=== PATIENT | male | born 1960 | race Caucasian/White ===

== ENCOUNTER → 2017-11-11 11:59 | Outpatient (CLI) | payer BC, SELFPAY ==
[2017-11-11 12:30] VITALS: BP 104/54; PULSE 75; RESP 18; TEMP 36.3; O2SAT 97; BMI 24.1
--- NOTE | 2017-11-11 12:55 | NURSING ---
PT BECAME DIAPHORETIC WHILE EATING HIS LUNCH. STATES MY SUGAR MIGHT BE LOW. STATES HE IS DIABETIC. BLOOD GLUCOSE CHECKED- RESULT 47. PT GIVEN JUICE AND CONTINUES TO EAT LUNCH.
--- NOTE | 2017-11-11 13:20 | NURSING ---
PT C/O FEELS WORSE DESPITE EATING FULL LUNCH. STATES CAN'T EAT ANYMORE. BLOOD GLUCOSE RECHECKED 46. CALLED DR JOHNSON'S OFFICE. RECEIVED ORDER TO GIVE 1 AMP D50 STAT AND SEND PT TO ED.
[2017-11-11] MEDS: Dextrose 50%-Water 25 GM/50 ML DISP.SYRIN IV (13:30)
--- NOTE | 2017-11-11 13:41 | NURSING ---
BLOOD SUGAR 129, PT REPORTS FEELING BETTER. PREFERS NOT TO GO TO ER. WILL NOTIFY DR. JOHNSON.
[2017-11-11 15:21] LABS: Bedside Glucose 48 mg/dL (70-110)
[2017-11-11 15:21] LABS: Bedside Glucose 89 mg/dL (70-110)
[2017-11-11 15:21] LABS: Bedside Glucose 46 mg/dL (70-110)
[2017-11-11 15:21] LABS: Bedside Glucose 129 mg/dL (70-110)
[2017-11-11 15:21] LABS: Bedside Glucose 47 mg/dL (70-110)
[2017-11-11 15:21] LABS: Bedside Glucose 115 mg/dL (70-110)
== END ==
PROVIDERS: Family Provider Family Medicine; PCP Family Medicine; Visit Provider Internal Medicine Hematology & Oncology
DX: C25.9 Malignant neoplasm of pancreas, unspecified (principal); E87.6 Hypokalemia; E83.42 Hypomagnesemia
CPT/HCPCS: 96365; 96366; 82962; J7050; A4216

== ENCOUNTER 2018-03-23 13:00 | Inpatient (IN) | payer BC, SELFPAY ==
[2018-03-23] VITALS (10 sets, daily range): BP systolic 84–160; BP diastolic 50–73; PULSE 79–107; RESP 14–18; TEMP 36.3–37.1; O2SAT 95–97; BMI 24.5; BMI 25.3
--- NOTE | 2018-03-23 13:17 | CT_ITS ---
STUDY: CT ABDOMEN AND PELVIS WITH CONTRAST REASON FOR EXAM: Male, 58 years old. Severe abdominal pain. History of pancreatic cancer and chemotherapy. RADIATION DOSAGE (If Supplied By Facility): CTDIvol = ( 15.84 ) mGy, DLP = ( 1031.34 ) mGycm TECHNIQUE: Transaxial images were obtained from the dome of the diaphragm to the symphysis pubis without oral contrast. 100mL ml of Isovue 300 contrast was administered. Sagittal and coronal images were reconstructed. Individualized dose optimization techniques were used for this CT. COMPARISON: None. FINDINGS: Left basilar atelectasis and/or infiltration. Calcified granuloma in the right lower lobe. Calcified right hilar lymph nodes. Small bilateral pleural effusions. Coronary artery calcification. Small pericardial effusions. There is decreased attenuation of the liver consistent with steatosis. There is a 1.5 cm x 1.9 cm peripherally based hypodensity in the dome of the right lobe of the liver laterally. Small amount of perihepatic fluid. The patient is status post cholecystectomy. There are multiple benign calcified granulomata of the spleen. Small amount of perisplenic fluid. There is diffuse atrophy of the pancreas. Normal bilateral adrenal glands. Normal right kidney. Normal left kidney. Normal visualized stomach. Several fluid filled nondistended small bowel loops. There is evidence of a circumferential wall thickening of several small bowel loops in the right mid abdomen and right lower quadrant. Enteritis should be ruled out. There is thickening of the terminal ileum. A covered stent is seen within the proximal small bowel. This may represent displacement of a stent. Correlation with prior studies is recommended if available. Moderate amount of fecal material seen in the colon. The appendix is visualized and appears normal. There is diffuse atherosclerotic calcification of the abdominal aorta, without a demonstrated aneurysm. Normal inferior vena cava. Normal retroperitoneum. Normal urinary bladder. Mild degree of ascites. Fluid is seen within the leaves of the mesentery. Normal abdominal wall. There are degenerative changes of the visualized lumbar spine. Straightening of the normal lumbar lordosis. CT/Abdomen/Pelvis W IV Cont ONLY IMPRESSION: Ascites. Nondistended fluid-filled small bowel loops with thickened wall in the right midabdomen and right lower quadrant extending into the terminal ileum. Fluid is seen within the leaves of the mesentery. A covered stent is seen within the proximal small bowel. Clinical correlation is recommended. Impression hypodensity in the dome of the right lobe of the liver. Pericardial effusion. Small bilateral pleural effusions and left basilar atelectasis. Electronically Signed: Parag Mina MD at 14:30 EDT Tel [phone], Service support ,
--- NOTE | 2018-03-23 13:23 | ED.DCSUM_ITS ---
- ER Visit Summary Date of Service: 03/23/18 Chief Complaint: Abdominal pain History of Present Illness: The patient is a 58 M with medical history significant for pancreatic cancer presents to the emergency department with abdominal pain. Patient had pancreatic cancer was diagnosed in September 2016. He underwent Whipple procedure at the [facility] shortly thereafter. The patient ended up having a small bowel obstruction where he had to have stenting placed into small bowel. He is currently following with Dr. Blackman. He did have his chemotherapy infusion on Tuesday. Shortly thereafter, he began to have worsening abdominal pain. He had x-rays which did show significant fecal stasis and constipation. He did 2 enemas and took oral cathartics. He did have a bowel movement and then had some liquid bowel movement, but he feels like his pain is worsened despite this. He has been nauseated with some bloating. He has had no vomiting. He denies any fevers or chills. He states that his pain was just very severe. Physical Examination: Vital signs reviewed General: Well-nourished, well-developed Head: Normocephalic, atraumatic Eyes: Pupils equal and reactive, extraocular muscles intact Neck, supple, no lymphadenopathy Heart: Regular rate and rhythm Respiratory: No distress, clear bilaterally Abdomen: Soft, diffusely tender with voluntary guarding Back: Nontender Extremities: Nontender, no edema, no cords Skin: Normal color no rash Neuro: Alert and oriented, no focal or lateralizing deficits Test Results: [] Emergency Department Course and Treatment: IV was established. Patient was given IV analgesics with improvement of his pain. Screening labs are obtained. He does have a leukocytosis, but in review he did get Neulasta injection on Tuesday. Screening labs are otherwise unremarkable. Lactate was normal. Patient underwent CT of the abdomen and pelvis. This does show some edema of the small bowel wall of the distal small bowel towards the terminal ileum. There is no evidence of stent migration. I was actually able to review the images with Dr. Bhakta who also reviewed them with Dr. Mauro. I do not feel that this represents an acute surgical process. I am unsure if this is side effect of his chemotherapy or just progression of his disease. Patient was discussed with Dr. Blackman. I did cover him with IV Zosyn given his leukocytosis and edema of the bowel, but again this was more of a painful process and there was no diarrhea. I am unsure if this is actually true infection or just reactive. At this time, due to the patient is can require admission for IV antibiotics and pain control. Patient was discussed with the hospitalist. Treatment Plan: [] Disposition: Admission Impression: 1. Acute abdominal pain 2. Pancreatic cancer This note was generated with [employer] dictation software. It may contain incorrect words, spelling, and punctuation that were not noted in review of the chart prior to signing ED Disposition - Plan for ED Patient: Chief Complaint: Abd Pain Referrals: Robert Cross MD [Primary Care Provider] -
[2018-03-23 13:43] LABS: Bacteria 0 SEEN /hpf (None Seen); Mucous, Urine 0 SEEN /hpf (<or=2+); Red Blood Cells-Urine 0 SEEN /hpf (0-5)
[2018-03-23] MEDS: 0.9% Normal Saline 1,000 ML 1000 ML IV (13:43)
[2018-03-23] MEDS: Ondansetron 4 MG/2 ML Vial IV (13:43)
[2018-03-23] MEDS: HYDROmorphone 1 MG/ML Syringe IV (13:43)
[2018-03-23 13:46] LABS: Color, Urine Yellow (Yellow); Glucose, Dipstick Normal (Normal); Ketone-Dipstick Negative (Negative); Leukocyte Esterase-Dipstick 25 /ul (Negative); Nitrite-Dipstick Negative (Negative); Occult Blood-Urine Negative /ul (Negative); Protein-Dipstick 30 mg/dl (Negative); Urine Bilirubin Dipstick Negative (Negative); Urine Clarity Sl. Cloudy (Clear); Urine Urobilinogen Normal (Normal)
[2018-03-23 13:52] LABS: Differential Indicated MANUAL DIFF; Hematocrit 30.1 % (40-54); Hemoglobin 9.7 g/dl (13.0-16.5); Mean Corp Hgb Conc 32.2 g/gl (32-36); Mean Corpuscular Hgb 29.2 pg (27.0-32.0); Mean Corpuscular Volume 90.7 fL (80-94); Mean Platelet Vol. 9.3 fl (6.2-12.0); POSITIVE COUNT YES; POSITIVE DIFFERENTIAL YES; POSITIVE MORPHOLOGY YES; Platelet Count 128 K/mm3 (150-450); RBC Distribution Width CV 21.9 % (11.6-14.6); RBC Distribution Width SD 72.7 fl (35.1-43.9); Red Blood Count 3.32 M/mm3 (4.6-6.2); White Blood Count 20.1 K/mm3 (4.4-11.0)
[2018-03-23 13:52] LABS: Squamous Epithelial Cells - UA 0-5 SEEN /hpf (0-5); White Blood Cells 0-5 SEEN /hpf (0-5)
[2018-03-23 14:12] LABS: ALB/GLOB Ratio 0.5 RATIO (0.9-2.4); AST(SGOT) 28 U/L (15-37); Alanine Aminotransfer ALT/SGPT 39 U/L (16-61); Albumin, Serum 1.8 g/dL (3.2-5.0); Alkaline Phosphatase 254 U/L (45-117); Anion Gap 7 (5-15); BUN 13 mg/dL (7-18); BUN/Creat Ratio 20.9 RATIO (10-20); Calcium,Total 7.7 mg/dL (8.5-10.1); Chloride 98 mmol/L (98-107); Creatinine, Serum 0.62 mg/dL (0.70-1.30); EST Glomerular Filtration Rate 140 mL/min (>60); Est Glom Filt Rate - Afr Amer 170 mL/min (>60); Estimated Creatinine Clearance 118.46 ml/min; Globulin 3.9 g/dL (2.2-4.2); Glucose 237 mg/dL (74-106); Lipase 18 U/L (73-393); Lymphocyte 3 % (19-41); Metamyelocyte 2 % (0-1); Monocyte 2 % (0-10); Neutrophil-Band 1 % (0-5); Neutrophil-Segmented 92 % (47-70); Potassium 4.4 mmol/L (3.5-5.1); Protein, Total 5.7 g/dL (6.4-8.2); Sodium Level 131 mmol/L (136-145); Total Cells Counted 100 (MANUAL DIFF)
[2018-03-23 14:13] LABS: Anisocytosis 1+; Hypochromasia 1+; Lactic Acid 1.1 mmol/L (0.4-2.0); Platelet Estimate SLT DEC (ADEQ)
[2018-03-23 14:14] LABS: Absolute Neutrophil Count 18.7 X10^3/uL (2.0-7.7); Neutrophil # 18.71 X10^3/uL (2.7-7.7)
[2018-03-23] MEDS: 0.9% Normal Saline 1,000 ML 999 ML IV (15:22)
[2018-03-23] MEDS: fentaNYL 100 MCG/2 ML Ampul 50 MCG IV (15:22)
--- NOTE | 2018-03-23 16:33 | CT_ITS ---
STUDY: CT ABDOMEN AND PELVIS WITHOUT CONTRAST REASON FOR EXAM: Male, 58 years old. Abdominal pain and weakness. History of pancreatic cancer, currently undergoing chemotherapy. RADIATION DOSAGE (If Supplied By Facility): CTDIvol = ( 7.40 ) mGy, DLP = ( 416.14 ) mGycm TECHNIQUE: Transaxial images were obtained from the dome of the diaphragm to the symphysis pubis with oral contrast, and without intravenous contrast. Sagittal and coronal images were reconstructed. Individualized dose optimization techniques were used for this CT. COMPARISON: CT abdomen and pelvis 1405 hours. FINDINGS: Stable atelectasis in the left lung base and mild elevation of left diaphragm. Stable small dependent right pleural effusion and minimal posterior basilar right lower lobe atelectasis. There is a calcified granuloma in the lateral periphery of the right lower lobe and calcified right hilar lymph nodes. The heart size is upper normal. Small pericardial effusion again noted. There are atherosclerotic calcifications of the coronary arteries. There is mild hepatomegaly, right lobe measuring just over 20 cm in height. There is decreased attenuation of the liver consistent with steatosis. There are occasional punctate calcified granuloma in the liver. Hemangioma noted in the medial margin of the right liver on the IV contrast enhanced study is not apparent in this exam. There is non-visualization of the gallbladder, which may be secondary to either contraction or a prior cholecystectomy. Normal spleen. There is moderate atrophy of the body and tail of the pancreas. The head of the pancreas is not clearly apparent, and previous exam shows possible possible prior resection of the pancreatic head with pancreatic enteric anastomosis near the proximal duodenum. Normal bilateral adrenal glands. Exophytic cortical cyst seen at the tip of the lower pole right kidney on prior study is not as conspicuous in this exam. Normal left kidney. Contrast from prior study opacifies the nondistended pelvicalyceal systems. No hydronephrosis. The patient is status post partial gastrectomy and gastrojejunal anastomosis. A stent device extends across the anastomosis, and there is a patent lumen with moderate proximal narrowing within the stent lumen. A few mildly distended small bowel loops are again noted in the midabdomen, but no significant transition point is evident, allowing that the distal small bowel is not opacified. No overtly suspicious bowel wall thickening. Mural margins of the right colon are poorly defined, likely secondary to volume averaging with small volume ascites. There is non-visualization of the appendix. There is stable moderate atherosclerotic calcification of the abdominal aorta and iliofemoral arteries, without a demonstrated aneurysm. Normal inferior vena cava. Normal retroperitoneum. Normal urinary bladder. The prostate gland is 3.85 x 4.7 x 3.54 cm (R33 cc). There is a healed supraumbilical midline scar of the anterior abdominal wall There are multilevel degenerative changes of the visualized lower thoracic and lower lumbar spine. CT/Abdomen/Pel W ORAL Cont Only IMPRESSION: 1. Prior partial gastrectomy and gastrojejunostomy, which is bridged by a covered stent. The stent is patent, although there is moderate irregular intraluminal narrowing in the proximal aspect of the stent. 2. A few mildly distended small bowel loops again seen in the mid abdomen, but no significant transition point is apparent to suggest obstruction. No overtly suspicious bowel wall thickening, allowing that the mural margins of several loops are poorly defined secondary to volume averaging with adjacent small volume ascites. 3. Hepatomegaly with steatosis. The hemangioma in the medial right lobe seen on the IV contrast enhanced study is not apparent in this exam. 4. Nonvisualized gallbladder. 5. Apparent resection of the pancreatic head with anastomosis of the pancreatic body to the proximal duodenum. 6. Stable small right pleural effusion and pericardial effusion. There is stable subsegmental atelectasis in the left diaphragm and mild elevation of left diaphragm. 7. Stable atherosclerotic calcifications of the coronary arteries, abdominal aorta, and iliofemoral arteries. No demonstrated aneurysm. 8. Mildly enlarged prostate gland. 9. Exophytic cyst at the tip of the lower pole right kidney is not as clearly seen in this noncontrast study. No hydronephrosis. 10. Healed midline supraumbilical scar of the anterior abdominal wall. Electronically Signed: Abdi Rosado MD at 19:03 EDT , Service support ,
--- NOTE | 2018-03-23 17:53 | CON.PCM_ITS ---
- Consult Date of Consult: 03/23/18 - Reason for Consult CC: abdominal pain HPI: Samuel Smith is a 58 y/o WM with known metastatic pancreatic cancer. He underwent Whipple procedure 11/15/16 and was found to have lymph nodes positive for metastatic pancreatic cancer as well as portal vein mets, vascular and perineural invasion. He is undergoing palliative chemotherapy with Dr. Blackman. He presents with right lower quadrant abdominal pain since Tuesday (4 days prior to presentation). He states that it is a severe ache. His most comfortable position is lying on his left side with body flexed. It caused increased pain for him to stretch out and lie supine. PAST?MEDICAL?HISTORY Arrhythmia ? Cancer of skin, squamous cell left thumb Coronary artery disease ? Diabetes (HCC) ? Heart attack,2X 20+ years Hypertension ? Pancreatic adenocarcinoma (HCC) - metastatic ? Skin cancer, basal cell,nose Skin cancer, basal cell 2006,thumb Snoring ? ? PAST?SURGICAL?HISTORY BACK SURGERY HX ? 1987 L4 L5 S1 CATARACT EXTRACTION HX Bilateral 03/2017 COLONOSCOPY ? 12/17/14 EGD ? 12/17/14 LAPAROSCOPIC WHIPPLE ? 11/2016 PAST SURGICAL HISTORY OF ? 2013 CTR bilateral PRQ CARDIAC STENT W/ANGIO 1 VSL 06/2016 4 heart stents TUNNEL VAD W SUB Q PORT >=5 Left 03/16/2017 left subclavian placement of small intestine stent CURRENT?MEDICATIONS plavix norco insulin magnesium zofran prn protonix kdur crestor carafate flomax ?? ALLERGIES: Review of patient's allergies indicates no known allergies. ? PERSONAL HISTORY: SOCIAL?HISTORY Social History Marital status: Spouse name: Years of education: Number of children: ?Occupational History Occupation Employer Comment [employer] ?Social History Main Topics Smoking status: Former Smoker Packs/day: 2.00 Years: 15.00 Types: Cigarettes Quit date: 12/04/1990 Smokeless status: Never Used Alcohol use: Yes Comment: rare Drug use: No Other Topics Concern Blood Transfusions Yes Comment:Possibly with back surgery ?? FAMILY HISTORY: Heart Mother triple bypass Hypertension Father ? Hyperlipidemia Father ? Glaucoma Father ? Stroke Brother ? Cancer Paternal Grandfather Colon ?? REVIEW OF SYSTEMS: Constitutional: denies fevers/chills Neuro: Denies THOMPSON and vertigo. HEENT: No recent change in voice, vision or hearing. Resp: Denies coughing up blood. CVS: Denies exertional chest pain. GI: denies blood in stool, denies n/v : Denies dysuria or gross hematuria Endo: has diabetes Heme: No unusual bleeding or unexplained bruising. Skin : denies nonhealing wounds MS: denies joint pain Psych: Normal mood. PHYSICAL EXAMINATION: General: The patient is 58 year old male, thin, well hydrated with apparent abdominal pain, lying curled up on left side. The patient is oriented to time, place, and person. VITALS: Blood pressure 108/73, pulse 84. Ht: 5'7 Wt 71kg. HEENT: Normal cephalic, atraumatic, pupils are equally round, sclera are anicteric, mucous membranes are moist, oropharynx is clear. Neck has no masses , asymmetry or lymphadenopathy. Respiratory: Clear to auscultation and percussion. Normal respiratory excursion and pattern. Cardiac: Examination is regular rate and rhythm. Abdominal exam: Soft but with tenderness to palpation of the right lower quadrant, rebound tenderness and Rovsing's is noted, no rigidity noted Extremities: no clubbing, cyanosis or edema. No adenopathy. IMPRESSION: right lower quadrant abdominal pain abdominal ascites ? PLAN: Would recommend transfer to main [facility] oncology service however, if patient cannot be transferred - would recommend paracentesis for evaluation of ascites If patient is admitted, I will reevaluate patient tomorrow Patient will be undergoing repeat CT scan with contrast
--- NOTE | 2018-03-23 20:00 | PCM.HP.STD ---
Problem List (1) Right sided abdominal pain Status: Acute History of Present Illness Date of Admission: 03/23/18 Chief Complaint: Right-sided abdominal pain The patient is a 58 year old M who was seen in the emergency room at [facility] with chief complaint of right sided abdominal pain which started 3 days ago, patient took laxatives thinking that he was constipated, he denies any fever, chills, hematochezia, vomiting, or nausea. Patient is actively receiving chemotherapy for metastatic pancreatic cancer diagnosed in October 2015, at that time he underwent a Whipple's procedure and in May 2016, his follow-up chemotherapy was stopped briefly before being started again in July 2016 when it was noted that his cancer had reoccurred. Patient also had a small intestinal stent placed in January 2017. Evaluation in the emergency room today included a CT with IV contrast which showed nondistended fluid-filled small bowel loops with thickened wall in the right mid abdomen and right lower quadrant extending into the terminal ileum. A covered stent was seen within the proximal small bowel, a hypodense area was noted in the dome of the right lobe of the liver, moderate amount of fecal material was seen in the colon. Lab was obtained which was remarkable for a white blood cell count of 20.1, hemoglobin was 9.7, sodium was 131, glucose was 237, and urinalysis was unremarkable. I had a discussion with the emergency room physician and the patient's oncologist, I recommended that the patient have a CT with oral contrast, this was performed and did not show any evidence of obstruction, general surgery (Dr. Bhakta) also saw the patient and did not feel that he currently had a surgical abdomen. Patient will be admitted to [place] [address] for abdominal pain-this may be secondary to an ileus or obstipation. Patient's white blood cell count elevation is probably due to his Neupogen injection he had a few days ago. Oncology does not feel that he requires antibiotics at this time and I agree Past Medical History Allergies No Known Allergies Allergy (Verified 03/23/18 13:03) Home Medications: Ambulatory Orders Medication Instructions Recorded Clopidogrel Bisulfate [Plavix] 75 mg PO DAILY 09/18/16 Hydrocodone Bitart/Apap 5-325 1 - 2 tablet PO Q6H PRN PRN #20 09/18/16 [[place] 5/325] tablet Insulin Glargine [Lantus (BKC)] 25 units SC QHS 09/18/16 Ondansetron [Zofran Odt] 4 mg PO Q8H PRN PRN #10 tablet 09/18/16 Rosuvastatin Calcium [Crestor] 40 mg PO DAILY 09/18/16 Tamsulosin HCl [Flomax] 0.4 mg PO QHS 09/18/16 Insulin Lispro [Humalog] 8 - 20 unit SC TIDCM 03/23/18 Magnesium 500 mg PO DAILY 03/23/18 Pantoprazole Sodium [Protonix] 40 mg PO DAILY 03/23/18 Potassium Chloride [K-Dur] 20 meq PO DINNER 03/23/18 Potassium Chloride [K-Dur] 40 meq PO DAILY 03/23/18 Sucralfate [Carafate] 1 gm PO 4X/DAY PRN PRN 03/23/18 Surgical History: - - Coronary artery stent placement ?5, Whipple's procedure Psychiatric History: No pertinent psych hx Lives: Spouse/ Significant Other Smoking Status: Former smoker Tobacco Use: Non-smoker Alcohol: None Drugs: None - *Family History Maternal History Items: Hypertension Paternal History Items: No pertinent history Review of Systems Constitutional: Denies: Anorexia, Chills, Fever, Night Sweats, Malaise, Weakness, Weight Change, Fatigue Eyes: Denies: Blurred vision, Cataracts, Conjunctivae Inflammation, Double vision, Drainage HEENT: Denies: Difficulty Swallowing, Dysphasia, Ear Pain, Eye Pain, Hearing Changes, Nasal bleeding, Nasal Congestion, Post Nasal Drip Cardiovascular: Denies: Chest Pain, Claudication, Chest Pressure, Chest Tightness, Edema, Heaviness, Orthopnea, Palpitations, Paroxysmal Noc. Dyspnea Respiratory: Denies: Cough, Hemoptysis, Pleuritic Pain, Shortness of Breath, Shortness of breath at rest, Shortness of breath upon exertion, Sputum production, Wheezing Gastrointestinal: Reports: Abdominal Pain, Constipation. Denies: Diarrhea, Dyspepsia, Hematemesis, Hematochezia, Nausea, Melena, Vomiting Genitourinary: Denies: Dysuria, Frequency, Hematuria, Hesitancy, Nocturia, Retention, Urgency Musculoskeletal: Denies: Back Pain, Foot Pain, Hand Pain, Joint Pain, Joint stiffness, Joint swelling, Joint Tenderness, Leg Pain Skin: Denies: Dryness, Jaundice, Pruritis, Rash Neurological: Denies: Blurred vision, Double vision, Slurred speech, Difficulty swallowing, Focal weakness, Headaches, Incoordination, Numbness, Tingling Psychiatric: Denies: Anxiety, Depression, Homicidal Ideations, Suicidal Ideations Endocrine: Denies: Change in Body Habitus, Heat/ Cold Intolerance, Polydipsia, Polyuria Hematologic/ Lymphatic: Denies: Adenopathy, Anemia, Easy Bruising, Easy Bleeding, Petechiae, Purpura VTE Information - Inpt Only VTE Present on Admission: No VTE Mechan Device Prophylaxis: None VTE Pharm Prophylaxis ordered?: Yes Patient Problems: Active and Suspected Problems Right sided abdominal pain (Acute) - Physical Exam General: Alert, Oriented x3, Cooperative, Well developed, Well nourished, - - Patient in moderate distress secondary to right-sided abdominal pain HEENT: Atraumatic, PERRLA, EOMI, Normocephalic Oral: Moist Mucosa Neck: Supple, No JVD, Negative Carotid Bruits, No Nuchal Rigidity, Trachea Midline, Thyroid Normal Size and Texture Lungs: Clear to auscultation, Normal air movement, No rhonchi, No wheeze, No rales Cardiovascular: Regular rate, Regular Rhythm, Normal S1, Normal S2, No murmurs, No Ectopic Activity, PMI Normal, No rub noted, No Gallop Abdomen: Bowel Sounds Present, Soft, Hypoactive Bowel Sounds, Tender - Marked abdominal tenderness is noted to palpation over the right lower and right mid abdominal quadrant, no rebound abdominal tenderness was noted Extremities: No clubbing, No cyanosis, No edema, Capillary Refill Less than 3 Seconds Skin: No rashes, No breakdown Musculoskeletal: No Tenderness to Palpation of Joints or Extremities Neurological: Cranial nerves II-XII grossly intact, Neuro grossly intact, Sensory exam intact to light touch and pain, Coordination normal Psych/Mental Status: Normal Affect, Appropriate, Alert and oriented to time, place, person, mood and affect Vital Signs Temp Pulse Resp BP Pulse Ox 98.6 F 81 14 101/55 L 97 03/23/18 19:47 03/23/18 19:47 03/23/18 19:47 03/23/18 19:47 03/23/18 19:47 Oxygen Delivery Method Room Air Weight: 73.2 kg Body Mass Index (BMI) 25.3 Assessment/Plan All Active Problems Right sided abdominal pain (Acute) #1 right-sided abdominal pain-etiology unclear at this point, might be secondary to ileus or obstipation, patient will be admitted to [facility], IV fluids will be administered, IV pain meds will be administered as needed, patient will be placed on clear liquids, surgery will continue to follow patient in the hospital as well oncology. Patient will not be started on any antibiotics at the present time #2 metastatic pancreatic cancer-according to oncology, patient's CA 19 antigens have been dropping which is a good sign that the patient's chemotherapy is affecting his pancreatic cancer. #3 coronary artery disease-stable at this time #4 type 2 diabetes-patient's blood sugars will be monitored and sliding scale insulin will be given according to protocol #5 leukocytosis-secondary to Neulasta administration #6 anemia secondary to chronic disease (pancreatic cancer)/chemotherapy Code Visit Inpatient E&M: 80430 Init Hosp L3
[2018-03-23] MEDS: Morphine 2 MG/ML Syringe IV (20:12)
--- NOTE | 2018-03-23 20:12 | HP.PCM_ITS ---
Problem List (1) Right sided abdominal pain Status: Acute History of Present Illness Date of Admission: 03/23/18 Chief Complaint: Right-sided abdominal pain The patient is a 58 year old M who was seen in the emergency room at [facility] with chief complaint of right sided abdominal pain which started 3 days ago, patient took laxatives thinking that he was constipated, he denies any fever, chills, hematochezia, vomiting, or nausea. Patient is actively receiving chemotherapy for metastatic pancreatic cancer diagnosed in October 2015, at that time he underwent a Whipple's procedure and in May 2016, his follow-up chemotherapy was stopped briefly before being started again in July 2016 when it was noted that his cancer had reoccurred. Patient also had a small intestinal stent placed in January 2017. Evaluation in the emergency room today included a CT with IV contrast which showed nondistended fluid-filled small bowel loops with thickened wall in the right mid abdomen and right lower quadrant extending into the terminal ileum. A covered stent was seen within the proximal small bowel, a hypodense area was noted in the dome of the right lobe of the liver, moderate amount of fecal material was seen in the colon. Lab was obtained which was remarkable for a white blood cell count of 20.1, hemoglobin was 9.7, sodium was 131, glucose was 237, and urinalysis was unremarkable. I had a discussion with the emergency room physician and the patient's oncologist, I recommended that the patient have a CT with oral contrast, this was performed and did not show any evidence of obstruction, general surgery ( Dr. Bhakta) also saw the patient and did not feel that he currently had a surgical abdomen. Patient will be admitted to [place] [id number] for abdominal pain- this may be secondary to an ileus or obstipation. Patient's white blood cell count elevation is probably due to his Neupogen injection he had a few days ago. Oncology does not feel that he requires antibiotics at this time and I agree Past Medical History Allergies No Known Allergies Allergy (Verified 03/23/18 13:03) Home Medications: Ambulatory Orders Medication Instructions Recorded Clopidogrel Bisulfate [Plavix] 75 mg PO DAILY 09/18/16 Hydrocodone Bitart/Apap 5-325 1 - 2 tablet PO Q6H PRN PRN #20 09/18/16 [[place] 5/325] tablet Insulin Glargine [Lantus (BKC)] 25 units SC QHS 09/18/16 Ondansetron [Zofran Odt] 4 mg PO Q8H PRN PRN #10 tablet 09/18/16 Rosuvastatin Calcium [Crestor] 40 mg PO DAILY 09/18/16 Tamsulosin HCl [Flomax] 0.4 mg PO QHS 09/18/16 Insulin Lispro [Humalog] 8 - 20 unit SC TIDCM 03/23/18 Magnesium 500 mg PO DAILY 03/23/18 Pantoprazole Sodium [Protonix] 40 mg PO DAILY 03/23/18 Potassium Chloride [K-Dur] 20 meq PO DINNER 03/23/18 Potassium Chloride [K-Dur] 40 meq PO DAILY 03/23/18 Sucralfate [Carafate] 1 gm PO 4X/DAY PRN PRN 03/23/18 Surgical History: - - Coronary artery stent placement ?5, Whipple's procedure Psychiatric History: No pertinent psych hx Lives: Spouse/ Significant Other Smoking Status: Former smoker Tobacco Use: Non-smoker Alcohol: None Drugs: None - *Family History Maternal History Items: Hypertension Paternal History Items: No pertinent history Review of Systems Constitutional: Denies: Anorexia, Chills, Fever, Night Sweats, Malaise, Weakness , Weight Change, Fatigue Eyes: Denies: Blurred vision, Cataracts, Conjunctivae Inflammation, Double vision, Drainage HEENT: Denies: Difficulty Swallowing, Dysphasia, Ear Pain, Eye Pain, Hearing Changes, Nasal bleeding, Nasal Congestion, Post Nasal Drip Cardiovascular: Denies: Chest Pain, Claudication, Chest Pressure, Chest Tightness, Edema, Heaviness, Orthopnea, Palpitations, Paroxysmal Noc. Dyspnea Respiratory: Denies: Cough, Hemoptysis, Pleuritic Pain, Shortness of Breath, Shortness of breath at rest, Shortness of breath upon exertion, Sputum production, Wheezing Gastrointestinal: Reports: Abdominal Pain, Constipation. Denies: Diarrhea, Dyspepsia, Hematemesis, Hematochezia, Nausea, Melena, Vomiting Genitourinary: Denies: Dysuria, Frequency, Hematuria, Hesitancy, Nocturia, Retention, Urgency Musculoskeletal: Denies: Back Pain, Foot Pain, Hand Pain, Joint Pain, Joint stiffness, Joint swelling, Joint Tenderness, Leg Pain Skin: Denies: Dryness, Jaundice, Pruritis, Rash Neurological: Denies: Blurred vision, Double vision, Slurred speech, Difficulty swallowing, Focal weakness, Headaches, Incoordination, Numbness, Tingling Psychiatric: Denies: Anxiety, Depression, Homicidal Ideations, Suicidal Ideations Endocrine: Denies: Change in Body Habitus, Heat/ Cold Intolerance, Polydipsia, Polyuria Hematologic/ Lymphatic: Denies: Adenopathy, Anemia, Easy Bruising, Easy Bleeding , Petechiae, Purpura VTE Information - Inpt Only VTE Present on Admission: No VTE Mechan Device Prophylaxis: None VTE Pharm Prophylaxis ordered?: Yes Patient Problems: Active and Suspected Problems Right sided abdominal pain (Acute) - Physical Exam General: Alert, Oriented x3, Cooperative, Well developed, Well nourished, - - Patient in moderate distress secondary to right-sided abdominal pain HEENT: Atraumatic, PERRLA, EOMI, Normocephalic Oral: Moist Mucosa Neck: Supple, No JVD, Negative Carotid Bruits, No Nuchal Rigidity, Trachea Midline, Thyroid Normal Size and Texture Lungs: Clear to auscultation, Normal air movement, No rhonchi, No wheeze, No rales Cardiovascular: Regular rate, Regular Rhythm, Normal S1, Normal S2, No murmurs, No Ectopic Activity, PMI Normal, No rub noted, No Gallop Abdomen: Bowel Sounds Present, Soft, Hypoactive Bowel Sounds, Tender - Marked abdominal tenderness is noted to palpation over the right lower and right mid abdominal quadrant, no rebound abdominal tenderness was noted Extremities: No clubbing, No cyanosis, No edema, Capillary Refill Less than 3 Seconds Skin: No rashes, No breakdown Musculoskeletal: No Tenderness to Palpation of Joints or Extremities Neurological: Cranial nerves II-XII grossly intact, Neuro grossly intact, Sensory exam intact to light touch and pain, Coordination normal Psych/Mental Status: Normal Affect, Appropriate, Alert and oriented to time, place, person, mood and affect Vital Signs Temp Pulse Resp BP Pulse Ox 98.6 F 81 14 101/55 L 97 03/23/18 19:47 03/23/18 19:47 03/23/18 19:47 03/23/18 19:47 03/23/18 19:47 Oxygen Delivery Method Room Air Weight: 73.2 kg Body Mass Index (BMI) 25.3 Assessment/Plan All Active Problems Right sided abdominal pain (Acute) #1 right-sided abdominal pain-etiology unclear at this point, might be secondary to ileus or obstipation, patient will be admitted to [facility], IV fluids will be administered, IV pain meds will be administered as needed, patient will be placed on clear liquids, surgery will continue to follow patient in the hospital as well oncology. Patient will not be started on any antibiotics at the present time #2 metastatic pancreatic cancer-according to oncology, patient's CA 19 antigens have been dropping which is a good sign that the patient's chemotherapy is affecting his pancreatic cancer. #3 coronary artery disease-stable at this time #4 type 2 diabetes-patient's blood sugars will be monitored and sliding scale insulin will be given according to protocol #5 leukocytosis-secondary to Neulasta administration #6 anemia secondary to chronic disease (pancreatic cancer)/chemotherapy Code Visit Inpatient E&M: 77147 Init Hosp L3
[2018-03-23] MEDS: 0.9% Normal Saline 1,000 ML 150 ML IV (20:15)
[2018-03-23] MEDS: ALPRAZolam 0.5 MG Tablet PO (22:44)
[2018-03-23] MEDS: Tamsulosin HCl 0.4 MG Capsule PO (22:44)
[2018-03-23] MEDS: Pantoprazole Sodium 40 MG Tablet PO (22:44)
[2018-03-23] MEDS: Insulin Lispro 100 UNIT/ML INSULN.PEN SC (23:36)
[2018-03-23 23:41] LABS: Bedside Glucose 222 mg/dL (70-110)
[2018-03-24] VITALS (10 sets, daily range): BP systolic 106–125; BP diastolic 68–83; PULSE 81–93; RESP 16–18; TEMP 36.8–37.3; O2SAT 93–98
[2018-03-24] MEDS: 0.9% Normal Saline 1,000 ML 150 ML IV ×3 (03:23→16:30)
[2018-03-24 05:34] LABS: Hematocrit 27.2 % (40-54); Hemoglobin 8.9 g/dl (13.0-16.5); Mean Corp Hgb Conc 32.7 g/gl (32-36); Mean Corpuscular Hgb 29.9 pg (27.0-32.0); Mean Corpuscular Volume 91.3 fL (80-94); Mean Platelet Vol. 9.9 fl (6.2-12.0); Platelet Count 121 K/mm3 (150-450); RBC Distribution Width CV 21.6 % (11.6-14.6); RBC Distribution Width SD 68.9 fl (35.1-43.9); Red Blood Count 2.98 M/mm3 (4.6-6.2); White Blood Count 9.8 K/mm3 (4.4-11.0)
[2018-03-24 05:36] LABS: Differential Indicated MANUAL DIFF; POSITIVE COUNT YES; POSITIVE DIFFERENTIAL YES; POSITIVE MORPHOLOGY YES
[2018-03-24 05:44] LABS: Anion Gap 6 (5-15); BUN 8 mg/dL (7-18); BUN/Creat Ratio 14.7 RATIO (10-20); Calcium,Total 6.8 mg/dL (8.5-10.1); Chloride 101 mmol/L (98-107); Creatinine, Serum 0.54 mg/dL (0.70-1.30); EST Glomerular Filtration Rate 163 mL/min (>60); Est Glom Filt Rate - Afr Amer 197 mL/min (>60); Estimated Creatinine Clearance 131.28 ml/min; Glucose 225 mg/dL (74-106); Magnesium 1.8 mg/dL (1.6-2.6); Potassium 4.1 mmol/L (3.5-5.1); Sodium Level 132 mmol/L (136-145)
[2018-03-24] MEDS: Insulin Lispro 100 UNIT/ML INSULN.PEN SC ×3 (06:01→17:39)
[2018-03-24] MEDS: 0.9% NaCl VAD Flush 10 ML IV ×5 (06:01→18:05)
[2018-03-24 06:11] LABS: Bedside Glucose 238 mg/dL (70-110)
[2018-03-24 07:38] LABS: Lymphocyte 2 % (19-41); Monocyte 2 % (0-10); Neutrophil-Band 17 % (0-5); Neutrophil-Segmented 79 % (47-70); Total Cells Counted 100 (MANUAL DIFF)
[2018-03-24 07:39] LABS: Anisocytosis 1+; Hypochromasia 1+; Platelet Estimate MOD DEC (ADEQ)
[2018-03-24 07:40] LABS: Microcytosis 1+; Platelet Morphology LARGE
[2018-03-24 07:41] LABS: Absolute Neutrophil Count 9.4 X10^3/uL (2.0-7.7)
[2018-03-24] MEDS: Enoxaparin 40 MG/0.4 ML Syringe SC (08:57)
[2018-03-24] MEDS: Pantoprazole Sodium 40 MG Tablet PO ×2 (08:57→21:57)
[2018-03-24] MEDS: Clopidogrel Bisulfate 75 MG Tablet PO (08:57)
--- NOTE | 2018-03-24 10:16 | PN_ITS ---
Patient Problems: Active and Suspected Problems Right sided abdominal pain (Acute) Subjective: Mr. Smith is a 58-year-old male with a past medical history of BPH, hyperlipidemia, diabetes mellitus type 2, pancreatic cancer (diagnosed in 2015 and currently receiving chemotherapy following a Whipple's procedure in May 2016) and coronary artery disease who presented to the emergency department at [facility] on 03/23/2018 complaining of right- sided abdominal pain which had been present for [address] scan of the abdomen and pelvis was done in the emergency department and revealed nondistended fluid-filled small bowel loops with thickened wall in the right mid abdomen and right lower quadrant extending into the terminal ileum. A covered stent was seen within the proximal small bowel. There was a hypodense area noted in the dome of the liver and there was a moderate amount of fecal material seen in the colon. There was ascites present and small bilateral pleural effusions. Albumin is very low at 1.8. Vital signs at admission were temperature 97.3, pulse rate 107, blood pressure 108/73, respiratory rate 16 and he was 95-97% saturated on room air. The white blood cell count was elevated at 20.1 with 92% neutrophils. He received Neupogen a few days prior to admission. Hemoglobin was 9.7 and platelets were 128,000. Sodium was low at 131 and the BUN was 13 with a creatinine of 0.62. LFTs were within normal limits and the lactic acid was 1.8. UA had only 0-5 WBCs per high-power field. Dr. Gallagher discussed the case with oncology and they did not feel antibiotics were indicated at this time. He was admitted to medical surgical unit and placed on clear liquids and surgery consult was ordered with Dr. Bhakta. A repeat CT scan with contrast was recommended by Dr. Bhakta and it did not reveal any evidence of obstruction. Afebrile since admission. Blood pressures have been erratic and the current blood pressure is 95/57. Pulse ox on room air today is 95%. Fluid balance since admission is +1832. - Physical Exam General: Alert, Oriented x3, Cooperative, - - he looks uncomfortable HEENT: Atraumatic, PERRLA, EOMI, Normocephalic Oral: Moist Mucosa Neck: Supple, No JVD, No Nodes, Trachea Midline Lungs: Clear to auscultation Cardiovascular: Regular rate, Regular Rhythm, Normal S1, Normal S2, No murmurs, No Gallop, - - he had a short burst of NSVT on tele. He had no CP and no SOB and denied palpitations and lightheadedness. EKG showed NSR with no ischemic ST or T wave changes Abdomen: Soft, Hypoactive Bowel Sounds, Distended - mild distension Extremities: No clubbing, No cyanosis, No edema Skin: No rashes, No breakdown Neurological: Cranial nerves II-XII grossly intact, Neuro grossly intact Psych/Mental Status: Normal Affect, Appropriate Vital Signs Temp Pulse Resp BP Pulse Ox 99.1 F 84 18 106/68 96 03/24/18 08:54 03/24/18 08:54 03/24/18 08:54 03/24/18 08:54 03/24/18 08:54 Oxygen Delivery Method Room Air Weight: 161 lb 6.054 oz Body Mass Index (BMI) 25.3 Intake and Output for Last 24 Hours 03/22/18 03/23/18 03/24/18 23:59 23:59 23:59 Intake Total 2182 / 2182 Output Total 350 / 350 Balance 1832 / 1832 Laboratory Tests Past 24 Hrs 03/24/18 03/24/18 05:20 05:20 WBC 9.8 RBC 2.98 L Hgb 8.9 L Hct 27.2 L MCV 91.3 MCH 29.9 MCHC 32.7 RDW 21.6 H RDW Differential 68.9 H Plt Count 121 L MPV 9.9 Neut % (Auto) Not Reportable Absolute Neuts (auto) 9.4 H Absolute Lymphs (auto) 0.20 L Total Counted 100 Neutrophils % (Manual) 79 H Band Neutrophils % 17 H Lymphocytes % (Manual) 2 L Monocytes % (Manual) 2 Diff Path Review May foll Platelet Estimate MOD DEC Plt Morphology Comment LARGE Hypochromasia 1+ Anisocytosis 1+ Microcytosis 1+ Sodium 132 L Potassium 4.1 Chloride 101 Carbon Dioxide 25.0 Anion Gap 6 BUN 8 Creatinine 0.54 L Estim Creat Clear Calc 131.28 Est GFR (MDRD) Af Amer 197 Est GFR (MDRD) Non-Af 163 BUN/Creatinine Ratio 14.7 Glucose 225 H Calcium 6.8 L Magnesium 1.8 POC Glucose 03/24/18 03/23/18 06:00 23:32 POC Glucose 238 H 222 H Medical Necessity - Tobacco Use Smoking Status: Former smoker Tobacco Use: Non-smoker Assessment/Plan All Active Problems Right sided abdominal pain (Acute) Impressions 1. abdominal pain - no evidence infection. This is new for him....he has Vicodin at home but rarely has to take. Pain started on Tuesday after chemo. He took a bottle of mag citrate on Tuesday and had a small BM on Tue but the CT of the abdomen and pelvis still shows a large stool volume. I discussed with Dr. Bhakta and she related that the patient has carcinomatosis of the omentum 2. constipation 3. Pancreatic CA - had a Whipple's in 2015 and the cancer recurred later the same year and he has been on chemo since then. He has a covered stent in the upper small intestine that does not appear to be occluded. 4. NSVT 5. Hx of CAD - S/P CABG 6. Diabetes mellitus type 2 7. Hyperlipidemia 8. BPH 9. Leukocytosis at admission likely secondary to recent Neupogen given following chemotherapy on Tuesday 10. Normochromic normocytic anemia-chronic 11. Chronic thrombocytopenia 12. Hyponatremia 13. Small, insignificant pericardial effusion 14. Chronic atelectasis left base-unchanged 15. Small right pleural effusion 16. Ascites-small amount. No indication that he has SBP. Paracentesis was recommended by the surgeon that did his whipples but pt refuses and after discussion with Dr. Bhakta we do not feel it is necessary Discussed with Dr. Blackman and Dr. Bhakta. Will start Golytely and continue until he has had 3-5 BM's. I encouraged him to take pain medication because I do not want him to be uncomfortable.....he takes Vicodin at home and I will add this to his drug regimen. Recheck the lab in the AM. Mag is 1.8....will give Mag IV in light of the NSVT Code Visit Inpatient E&M: 47956 Subs Hosp L2
--- NOTE | 2018-03-24 11:16 | EKG12_ITS ---
Test Reason : ARRYTHMIA Blood Pressure : / mmHG Vent. Rate : 098 BPM Atrial Rate : 098 BPM P-R Int : 156 ms QRS Dur : 084 ms QT Int : 362 ms P-R-T Axes : 015 027 -04 degrees QTc Int : 462 ms Normal sinus rhythm Inferior infarct , age undetermined Anterolateral infarct , age undetermined Abnormal ECG Confirmed by BEBETO ROE, NATHAN ([id number]), photo editor SHERI GONZALEZ ([id number]) on 04/04/2018 3:31:18 PM Referred By: MONICA Confirmed By:NATHAN TATE MD
[2018-03-24 12:10] LABS: Bedside Glucose 191 mg/dL (70-110)
--- NOTE | 2018-03-24 12:11 | ONC.CON.INP2 ---
- Problem List (1) Pancreas cancer Status: Chronic (2) Right sided abdominal pain Status: Acute Subjective Chief Complaint: Abdominal pain History of Present Illness: HPI:~The patient is a 58~yo male with PMH significant for coronary artery disease, hypertension, hyperlipidemia and type 2 diabetes who developed painless jaundice in August 2016. ?? Patient was admitted to [facility] and underwent an MRCP. This study showed no gallstones or biliary ductal stone but it did show pancreatic ductal dilation and 2 lesions in the liver consistent with metastatic disease. There was also a pancreatic head mass observed. The patient also had a CT scan the abdomen which did not redemonstrate the mass. He was then referred to gastroenterology and the patient underwent an ERCP on 09/27/2016. A stent was placed and via EUS, and FNA of the pancreatic mass was obtained. ?? The patient then underwent a Whipple's procedure on 11/15/2016. ?? Pathology: 1. Liver, biopsy (A) - Hepatic parenchyma with calcified hyalinized nodule, negative for tumor. 2. Lymph node, hepatic artery, excision (B) - One lymph node, negative for tumor (0/1). 3. Vein, margin, biopsy (C) - Vessel wall involved by adenocarcinoma. 4. Pancreas, distal, bile duct, duodenum, Whipple procedure (D) ?- Well to moderately differentiated pancreatic adenocarcinoma (3.8 cm in greatest dimension). ?- Perineural and lymphovascular space invasion identified. ?- Metastatic adenocarcinoma involving thirteen of fifty-one lymph nodes (13/51). ?- The pancreatic resection margin, proximal and distal duodenal resection margins and common bile duct margin are free of tumor. ?- See synoptic report. 5. Bile duct, proximal margin, excision?(E) - Segment of bile duct, negative for tumor. 6. Segment of portal vein, excision (F) - Segment of vessel wall involved by adenocarcinoma. 7. Jejunum, segmental resection (G) ?- Segment of small bowel with fibrous serosal adhesions and focal serositis. ?- Two benign reactive lymph nodes. SYNOPTIC REPORT OF [facility] WHIPPLE SPECIMEN: ? ? ?PANCREAS EXOCRINE WORKSHEET Specimen: ? ? ? Head of pancreas Procedure: ? ? ? Pancreaticoduodenectomy (Whipple resection), partial pancreatectomy Tumor Site: ? ? ? Pancreatic head Histologic Type: ? ? ? Ductal adenocarcinoma Histologic Grade: ? ? ? G1: ?Well differentiated? Tumor Size: ? ? ? Greatest dimension: 3.8 cm Microscopic Tumor Extension: ?Tumor invades peripancreatic soft tissues? Tissue Specimen Type: ? ? ? Pancreaticoduodenal Resection Specimen Margins for Pancreaticoduodenal Resection Specimen: ? ? ? Pancreatic neck/parenchymal margin uninvolved by pancreatic high-grade intraepithelial neoplasia or invasive carcinoma ? ? ? Uncinate margin uninvolved by invasive carcinoma ? ? ? Bile duct margin uninvolved by high-grade intraepithelial neoplasia or invasive carcinoma ? ? ? Proximal margin (Gastric or Duodenal) uninvolved by high-grade dysplasia or invasive carcinoma ? ? ? Distal margin (Duodenal or Jejunal) uninvolved by high-grade dysplasia or invasive carcinoma ? ? ? Other margin: Portal vein margin ? ? ? Other margin involved by invasive carcinoma? Treatment Effect: ? ? ? No prior treatment Lymph-Vascular Invasion: ? ? ? Present? Perineural Invasion: ? ? ? Present? TNM Descriptors: ? ? ? Not applicable Primary Tumor (pT): ? ? ? pT3: ?Tumor extends beyond the pancreas but without involvement of the celiac axis or the superior mesenteric artery Regional Lymph Nodes (pN): ? ? ? pN1: Regional lymph node metastasis ? ? ? Number of lymph nodes examined: 52 ? ? ? Number of lymph nodes involved: 13 Distant Metastasis (pM): ? ? ? Not applicable ? Previous therapy: 1) Gemzar/Xeloda. ?First cycle: 12/17/16 day 15 of gemcitabine was omitted because of neutropenia ?Second cycle: Dose reduction gemcitabine 800mg/m2 completed without any problems. ? He underwent an ultrasound-guided biopsy of a malignant-appearing nodule in the anterior abdominal wall. Biopsy demonstrated adenocarcinoma consistent with pancreatic primary. ? Was admitted to [facility] for gastric outlet obstruction. ? 10/13 Consulted GI for EGD+Balloon vs. Stenting of gastric outlet obstruction. ?Consulted palliative medicine for pain control. 10/14 EGD with biopsies today. ?No visible stentable obstruction. NG tube placed for decompression. ?Continue Zofran 8 mg q8H. ? 10/15 Patient feels much better today with NG in place. ?Continue clears for comfort. ?Hepatobiliary surgery consulted. ?Considering venting PEG. ?Would like a small bowel follow through study 10/16 Attempted NG clamp trial yesterday. ?Patient with much more distension and nausea today. ?NG placed back to [facility]. ? 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 Additionally this study shows contrast into the afferent limb with a jejunal diameter of 53 mm and clear reflux into the distal aspect of the biliary tree. Plan to repeat EGD with exploration of efferent limb. 10/18 EGD with stent placement. ?Patient returned to the floor. Tolerating clears. 10/19 Patient feels much better today with stent. ?Tolerating clears. ?Will slowly advance diet. ?Waiting for patient to have a bowel movement before discharge. ? 10/20 Patient with four bowel movements yesterday. ?Tolerating dysphagia II diet. Will discharge once weaned from [employer] pump. 10/21 ?Patient transitioned to oral pain medications. ?Tolerating dysphagia 2 diet. ?Having bowel movements and states abdominal pain has improved. ?Discharged home in stable condition. ? Had to undergo urgent repeat stent 11/16. ? Current therapy: 1) FOLFIRINOX during infusion of chemotherapy on Tuesday he had acute worsening of chronic abdominal pain. This was associated with cramping. An acute abdominal series was performed which showed a lot of stool in the colon with no evidence of small bowel obstruction. Patient was advised to try magnesium citrate which you did with no result. The following day he did to fleets enemas with good result. He felt better but then yesterday the pain started a crescendo again he presented to the emergency department. CT scans were done. Results are noted and I personally reviewed both studies. No sign of obstruction. Generalized inflammation throughout the mesentery with small amounts of ascites. Notably the serum CA-19-9 level has been incrementally decreasing with each cycle of chemotherapy. He's had 14 cycles to date. Since being admitted and started on hydration and clear liquids, he said the pain this morning is noticeably better although still pretty significant. He is able to roll in bed more comfortably. He has not had any jaundice. He hasn't had a fever. White count was elevated in the ER yesterday area this was most likely from Neulasta administration. No bowel movement since he's been in the hospital. He's had no symptoms of GI bleeding. His appetite section been doing quite well the last few months. He has occasional nausea and vomiting but none in the hospital.. Past Medical History: Chronic Problems Pancreas cancer (Chronic) Maternal Family History: Hypertension Paternal Family History: No pertinent history - Social History Lives: Spouse/ Significant Other Smoking Status: Former smoker Tobacco Use: Non-smoker Alcohol: None Drugs: None Allergies/Adverse Reactions: Allergy/AdvReac Type Severity Reaction Status Date / Time No Known Allergies Allergy Verified 03/23/18 13:03 Review of Systems Gastrointestinal:: Reports: Abdominal pain Vital Signs Height 1.7 m Weight: 73.2 kg Weight in Pounds 161.4 lbs Pulse Ox 96 Temperature 99.1 F Pulse Rate 89 Respiratory Rate 18 Blood Pressure 106/68 Blood Pressure Position Supine - Physical Exam General: Alert, Oriented x3 Cardiac:: Regular rhythm Lungs: Clear to auscultation Abdomen:: Soft, Tympany, - - Tender throughout. Laboratory Data: Laboratory Tests 03/24/18 03/24/18 03/24/18 Range/Units 11:51 06:00 05:20 WBC (4.4-11.0) K/mm3 RBC (4.6-6.2) M/mm3 Hgb (13.0-16.5) g/dl Hct (40-54) % MCV (80-94) fL MCH (27.0-32.0) pg MCHC (32-36) g/gl RDW (11.6-14.6) % RDW Differential (35.1-43.9) fl Plt Count (150-450) K/mm3 MPV (6.2-12.0) fl Neut % (Auto) Absolute Neuts (auto) (2.0-7.7) X10^3/uL Absolute Lymphs (auto) (0.83-4.51) X10^3/ul Total Counted (MANUAL DIFF) Neutrophils % (Manual) (47-70) % Band Neutrophils % (0-5) % Lymphocytes % (Manual) (19-41) % Monocytes % (Manual) (0-10) % Diff Path Review Platelet Estimate (ADEQ) Plt Morphology Comment Hypochromasia Anisocytosis Microcytosis Sodium 132 L (136-145) mmol/L Potassium 4.1 (3.5-5.1) mmol/L Chloride 101 (98-107) mmol/L Carbon Dioxide 25.0 (21.0-32.0) mmol/L Anion Gap 6 (5-15) BUN 8 (7-18) mg/dL Creatinine 0.54 L (0.70-1.30) mg/dL Estim Creat Clear Calc 131.28 ml/min Est GFR (MDRD) Af Amer 197 (>60) mL/min Est GFR (MDRD) Non-Af 163 (>60) mL/min BUN/Creatinine Ratio 14.7 (10-20) RATIO Glucose 225 H (74-106) mg/dL Calcium 6.8 L (8.5-10.1) mg/dL Magnesium 1.8 (1.6-2.6) mg/dL POC Glucose 191 H 238 H (70-110) mg/dL 03/24/18 03/23/18 Range/Units 05:20 23:32 WBC 9.8 (4.4-11.0) K/mm3 RBC 2.98 L (4.6-6.2) M/mm3 Hgb 8.9 L (13.0-16.5) g/dl Hct 27.2 L (40-54) % MCV 91.3 (80-94) fL MCH 29.9 (27.0-32.0) pg MCHC 32.7 (32-36) g/gl RDW 21.6 H (11.6-14.6) % RDW Differential 68.9 H (35.1-43.9) fl Plt Count 121 L (150-450) K/mm3 MPV 9.9 (6.2-12.0) fl Neut % (Auto) Not Reportable Absolute Neuts (auto) 9.4 H (2.0-7.7) X10^3/uL Absolute Lymphs (auto) 0.20 L (0.83-4.51) X10^3/ul Total Counted 100 (MANUAL DIFF) Neutrophils % (Manual) 79 H (47-70) % Band Neutrophils % 17 H (0-5) % Lymphocytes % (Manual) 2 L (19-41) % Monocytes % (Manual) 2 (0-10) % Diff Path Review May foll Platelet Estimate MOD DEC (ADEQ) Plt Morphology Comment LARGE Hypochromasia 1+ Anisocytosis 1+ Microcytosis 1+ Sodium (136-145) mmol/L Potassium (3.5-5.1) mmol/L Chloride (98-107) mmol/L Carbon Dioxide (21.0-32.0) mmol/L Anion Gap (5-15) BUN (7-18) mg/dL Creatinine (0.70-1.30) mg/dL Estim Creat Clear Calc ml/min Est GFR (MDRD) Af Amer (>60) mL/min Est GFR (MDRD) Non-Af (>60) mL/min BUN/Creatinine Ratio (10-20) RATIO Glucose (74-106) mg/dL Calcium (8.5-10.1) mg/dL Magnesium (1.6-2.6) mg/dL POC Glucose 222 H (70-110) mg/dL Diagnostic Data: Diagnostic Data Abdomen/Pelvis CT 03/23/18 13:17 IMPRESSION: Ascites. Nondistended fluid-filled small bowel loops with thickened wall in the right midabdomen and right lower quadrant extending into the terminal ileum. Fluid is seen within the leaves of the mesentery. A covered stent is seen within the proximal small bowel. Clinical correlation is recommended. Impression hypodensity in the dome of the right lobe of the liver. Pericardial effusion. Small bilateral pleural effusions and left basilar atelectasis. Electronically Signed: Parag Mina MD at 14:30 EDT Tel [phone], Service support , Abdomen CT 03/23/18 16:33 IMPRESSION: 1. Prior partial gastrectomy and gastrojejunostomy, which is bridged by a covered stent. The stent is patent, although there is moderate irregular intraluminal narrowing in the proximal aspect of the stent. 2. A few mildly distended small bowel loops again seen in the mid abdomen, but no significant transition point is apparent to suggest obstruction. No overtly suspicious bowel wall thickening, allowing that the mural margins of several loops are poorly defined secondary to volume averaging with adjacent small volume ascites. 3. Hepatomegaly with steatosis. The hemangioma in the medial right lobe seen on the IV contrast enhanced study is not apparent in this exam. 4. Nonvisualized gallbladder. 5. Apparent resection of the pancreatic head with anastomosis of the pancreatic body to the proximal duodenum. 6. Stable small right pleural effusion and pericardial effusion. There is stable subsegmental atelectasis in the left diaphragm and mild elevation of left diaphragm. 7. Stable atherosclerotic calcifications of the coronary arteries, abdominal aorta, and iliofemoral arteries. No demonstrated aneurysm. 8. Mildly enlarged prostate gland. 9. Exophytic cyst at the tip of the lower pole right kidney is not as clearly seen in this noncontrast study. No hydronephrosis. 10. Healed midline supraumbilical scar of the anterior abdominal wall. Electronically Signed: Abdi Rosado MD at 19:03 EDT , Service support , Assessment and Plan Abdominal pain. Assessment: -I personally reviewed the CT scan images. There still evidence of mesenteric disease. Small volume ascites. -No evidence of obstruction. -Likely ileus associated with constipation. -Discussed with Dr. Light. Agree with plan for GoLYTELY. Plan: -GoLYTELY. -Continue IV hydration. -Encouraged him up and out of bed with ambulation today. -Would hold off on antibiotics. 2) Metastatic pancreas cancer. Assessment: -He had marked improvement in his KPS and incremental decrease in CA-19-9 throughout the last 14 cycles of FOLFIRINOX. -He's been tolerating chemotherapy without any significant worsening of neuropathy. -There has been difficulty with significant hypokalemia. -Discussed with him today we will plan on resuming chemotherapy once the acute abdominal pain/constipation has resolved. Plan: -Patient will follow up in the office next week following discharge. We'll plan on resuming chemotherapy in approximately 2 weeks. Medications: Prescriptions This Visit Medication Instructions Recorded Insulin Lispro [Humalog] 8 - 20 unit SC TIDCM 03/23/18 Magnesium 500 mg PO DAILY 03/23/18 Pantoprazole Sodium [Protonix] 40 mg PO DAILY 03/23/18 Potassium Chloride [K-Dur] 20 meq PO DINNER 03/23/18 Potassium Chloride [K-Dur] 40 meq PO DAILY 03/23/18 Sucralfate [Carafate] 1 gm PO 4X/DAY PRN PRN 03/23/18 Medications Added to Medication List This Visit Category Date Time Status Enoxaparin [Lovenox] Med 03/24/18 10:00 Active 40 mg SC DAILY@1000 Ensure Clear Med 03/24/18 08:00 Active 120 ml PO TIDCM Primary Care Provider: Robert Cross Referring Provider:
--- NOTE | 2018-03-24 12:19 | CON.PCM_ITS ---
- Problem List (1) Pancreas cancer Status: Chronic (2) Right sided abdominal pain Status: Acute Subjective Chief Complaint: Abdominal pain History of Present Illness: HPI:~The patient is a 58~yo male with PMH significant for coronary artery disease, hypertension, hyperlipidemia and type 2 diabetes who developed painless jaundice in August 2016. ?? Patient was admitted to [facility] and underwent an MRCP. This study showed no gallstones or biliary ductal stone but it did show pancreatic ductal dilation and 2 lesions in the liver consistent with metastatic disease. There was also a pancreatic head mass observed. The patient also had a CT scan the abdomen which did not redemonstrate the mass. He was then referred to gastroenterology and the patient underwent an ERCP on 09/27/2016. A stent was placed and via EUS, and FNA of the pancreatic mass was obtained. ?? The patient then underwent a Whipple's procedure on 11/15/2016. ?? Pathology: 1. Liver, biopsy (A) - Hepatic parenchyma with calcified hyalinized nodule, negative for tumor. 2. Lymph node, hepatic artery, excision (B) - One lymph node, negative for tumor (0/1). 3. Vein, margin, biopsy (C) - Vessel wall involved by adenocarcinoma. 4. Pancreas, distal, bile duct, duodenum, Whipple procedure (D) ?- Well to moderately differentiated pancreatic adenocarcinoma (3.8 cm in greatest dimension). ?- Perineural and lymphovascular space invasion identified. ?- Metastatic adenocarcinoma involving thirteen of fifty-one lymph nodes (13/51). ?- The pancreatic resection margin, proximal and distal duodenal resection margins and common bile duct margin are free of tumor. ?- See synoptic report. 5. Bile duct, proximal margin, excision?(E) - Segment of bile duct, negative for tumor. 6. Segment of portal vein, excision (F) - Segment of vessel wall involved by adenocarcinoma. 7. Jejunum, segmental resection (G) ?- Segment of small bowel with fibrous serosal adhesions and focal serositis. ?- Two benign reactive lymph nodes. SYNOPTIC REPORT OF [facility] WHIPPLE SPECIMEN: ? ? ?PANCREAS EXOCRINE WORKSHEET Specimen: ? ? ? Head of pancreas Procedure: ? ? ? Pancreaticoduodenectomy (Whipple resection), partial pancreatectomy Tumor Site: ? ? ? Pancreatic head Histologic Type: ? ? ? Ductal adenocarcinoma Histologic Grade: ? ? ? G1: ?Well differentiated? Tumor Size: ? ? ? Greatest dimension: 3.8 cm Microscopic Tumor Extension: ?Tumor invades peripancreatic soft tissues? Tissue Specimen Type: ? ? ? Pancreaticoduodenal Resection Specimen Margins for Pancreaticoduodenal Resection Specimen: ? ? ? Pancreatic neck/parenchymal margin uninvolved by pancreatic high-grade intraepithelial neoplasia or invasive carcinoma ? ? ? Uncinate margin uninvolved by invasive carcinoma ? ? ? Bile duct margin uninvolved by high-grade intraepithelial neoplasia or invasive carcinoma ? ? ? Proximal margin (Gastric or Duodenal) uninvolved by high-grade dysplasia or invasive carcinoma ? ? ? Distal margin (Duodenal or Jejunal) uninvolved by high-grade dysplasia or invasive carcinoma ? ? ? Other margin: Portal vein margin ? ? ? Other margin involved by invasive carcinoma? Treatment Effect: ? ? ? No prior treatment Lymph-Vascular Invasion: ? ? ? Present? Perineural Invasion: ? ? ? Present? TNM Descriptors: ? ? ? Not applicable Primary Tumor (pT): ? ? ? pT3: ?Tumor extends beyond the pancreas but without involvement of the celiac axis or the superior mesenteric artery Regional Lymph Nodes (pN): ? ? ? pN1: Regional lymph node metastasis ? ? ? Number of lymph nodes examined: 52 ? ? ? Number of lymph nodes involved: 13 Distant Metastasis (pM): ? ? ? Not applicable ? Previous therapy: 1) Gemzar/Xeloda. ?First cycle: 12/17/16 day 15 of gemcitabine was omitted because of neutropenia ?Second cycle: Dose reduction gemcitabine 800mg/m2 completed without any problems. ? He underwent an ultrasound-guided biopsy of a malignant-appearing nodule in the anterior abdominal wall. Biopsy demonstrated adenocarcinoma consistent with pancreatic primary. ? Was admitted to [facility] for gastric outlet obstruction. ? 10/13 Consulted GI for EGD+Balloon vs. Stenting of gastric outlet obstruction. ? Consulted palliative medicine for pain control. 10/14 EGD with biopsies today. ?No visible stentable obstruction. NG tube placed for decompression. ?Continue Zofran 8 mg q8H. ? 10/15 Patient feels much better today with NG in place. ?Continue clears for comfort. ?Hepatobiliary surgery consulted. ?Considering venting PEG. ?Would like a small bowel follow through study 10/16 Attempted NG clamp trial yesterday. ?Patient with much more distension and nausea today. ?NG placed back to [facility]. ? 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 Additionally this study shows contrast into the afferent limb with a jejunal diameter of 53 mm and clear reflux into the distal aspect of the biliary tree. Plan to repeat EGD with exploration of efferent limb. 10/18 EGD with stent placement. ?Patient returned to the floor. Tolerating clears. 10/19 Patient feels much better today with stent. ?Tolerating clears. ?Will slowly advance diet. ?Waiting for patient to have a bowel movement before discharge. ? 10/20 Patient with four bowel movements yesterday. ?Tolerating dysphagia II diet. Will discharge once weaned from [employer] pump. 10/21 ?Patient transitioned to oral pain medications. ?Tolerating dysphagia 2 diet. ?Having bowel movements and states abdominal pain has improved. ? Discharged home in stable condition. ? Had to undergo urgent repeat stent 11/16. ? Current therapy: 1) FOLFIRINOX during infusion of chemotherapy on Tuesday he had acute worsening of chronic abdominal pain. This was associated with cramping. An acute abdominal series was performed which showed a lot of stool in the colon with no evidence of small bowel obstruction. Patient was advised to try magnesium citrate which you did with no result. The following day he did to fleets enemas with good result. He felt better but then yesterday the pain started a crescendo again he presented to the emergency department. CT scans were done. Results are noted and I personally reviewed both studies. No sign of obstruction. Generalized inflammation throughout the mesentery with small amounts of ascites. Notably the serum CA-19-9 level has been incrementally decreasing with each cycle of chemotherapy. He's had 14 cycles to date. Since being admitted and started on hydration and clear liquids, he said the pain this morning is noticeably better although still pretty significant. He is able to roll in bed more comfortably. He has not had any jaundice. He hasn't had a fever. White count was elevated in the ER yesterday area this was most likely from Neulasta administration. No bowel movement since he's been in the hospital. He's had no symptoms of GI bleeding. His appetite section been doing quite well the last few months. He has occasional nausea and vomiting but none in the hospital.. Past Medical History: Chronic Problems Pancreas cancer (Chronic) Maternal Family History: Hypertension Paternal Family History: No pertinent history - Social History Lives: Spouse/ Significant Other Smoking Status: Former smoker Tobacco Use: Non-smoker Alcohol: None Drugs: None Allergies/Adverse Reactions: Allergy/AdvReac Type Severity Reaction Status Date / Time No Known Allergies Allergy Verified 03/23/18 13:03 Review of Systems Gastrointestinal:: Reports: Abdominal pain Vital Signs Height 1.7 m Weight: 73.2 kg Weight in Pounds 161.4 lbs Pulse Ox 96 Temperature 99.1 F Pulse Rate 89 Respiratory Rate 18 Blood Pressure 106/68 Blood Pressure Position Supine - Physical Exam General: Alert, Oriented x3 Cardiac:: Regular rhythm Lungs: Clear to auscultation Abdomen:: Soft, Tympany, - - Tender throughout. Laboratory Data: Laboratory Tests 3 03/24/18 03/24/18 03/24/18 Range/Units 11:51 06:00 05:20 WBC (4.4-11.0) K/mm3 RBC (4.6-6.2) M/mm3 Hgb (13.0-16.5) g/dl Hct (40-54) % MCV (80-94) fL MCH (27.0-32.0) pg MCHC (32-36) g/gl RDW (11.6-14.6) % RDW Differential (35.1-43.9) fl Plt Count (150-450) K/mm3 MPV (6.2-12.0) fl Neut % (Auto) Absolute Neuts (auto) (2.0-7.7) X10^3/uL Absolute Lymphs (auto) (0.83-4.51) X10^3/ul Total Counted (MANUAL DIFF) Neutrophils % (Manual) (47-70) % Band Neutrophils % (0-5) % Lymphocytes % (Manual) (19-41) % Monocytes % (Manual) (0-10) % Diff Path Review Platelet Estimate (ADEQ) Plt Morphology Comment Hypochromasia Anisocytosis Microcytosis Sodium 132 L (136-145) mmol/L Potassium 4.1 (3.5-5.1) mmol/L Chloride 101 (98-107) mmol/L Carbon Dioxide 25.0 (21.0-32.0) mmol/L Anion Gap 6 (5-15) BUN 8 (7-18) mg/dL Creatinine 0.54 L (0.70-1.30) mg/dL Estim Creat Clear Calc 131.28 ml/min Est GFR (MDRD) Af Amer 197 (>60) mL/min Est GFR (MDRD) Non-Af 163 (>60) mL/min BUN/Creatinine Ratio 14.7 (10-20) RATIO Glucose 225 H (74-106) mg/dL Calcium 6.8 L (8.5-10.1) mg/dL Magnesium 1.8 (1.6-2.6) mg/dL POC Glucose 191 H 238 H (70-110) mg/dL 3 03/24/18 03/23/18 Range/Units 05:20 23:32 WBC 9.8 (4.4-11.0) K/mm3 RBC 2.98 L (4.6-6.2) M/mm3 Hgb 8.9 L (13.0-16.5) g/dl Hct 27.2 L (40-54) % MCV 91.3 (80-94) fL MCH 29.9 (27.0-32.0) pg MCHC 32.7 (32-36) g/gl RDW 21.6 H (11.6-14.6) % RDW Differential 68.9 H (35.1-43.9) fl Plt Count 121 L (150-450) K/mm3 MPV 9.9 (6.2-12.0) fl Neut % (Auto) Not Reportable Absolute Neuts (auto) 9.4 H (2.0-7.7) X10^3/uL Absolute Lymphs (auto) 0.20 L (0.83-4.51) X10^3/ul Total Counted 100 (MANUAL DIFF) Neutrophils % (Manual) 79 H (47-70) % Band Neutrophils % 17 H (0-5) % Lymphocytes % (Manual) 2 L (19-41) % Monocytes % (Manual) 2 (0-10) % Diff Path Review May foll Platelet Estimate MOD DEC (ADEQ) Plt Morphology Comment LARGE Hypochromasia 1+ Anisocytosis 1+ Microcytosis 1+ Sodium (136-145) mmol/L Potassium (3.5-5.1) mmol/L Chloride (98-107) mmol/L Carbon Dioxide (21.0-32.0) mmol/L Anion Gap (5-15) BUN (7-18) mg/dL Creatinine (0.70-1.30) mg/dL Estim Creat Clear Calc ml/min Est GFR (MDRD) Af Amer (>60) mL/min Est GFR (MDRD) Non-Af (>60) mL/min BUN/Creatinine Ratio (10-20) RATIO Glucose (74-106) mg/dL Calcium (8.5-10.1) mg/dL Magnesium (1.6-2.6) mg/dL POC Glucose 222 H (70-110) mg/dL Diagnostic Data: Diagnostic Data Abdomen/Pelvis CT 03/23/18 13:17 IMPRESSION: Ascites. Nondistended fluid-filled small bowel loops with thickened wall in the right midabdomen and right lower quadrant extending into the terminal ileum. Fluid is seen within the leaves of the mesentery. A covered stent is seen within the proximal small bowel. Clinical correlation is recommended. Impression hypodensity in the dome of the right lobe of the liver. Pericardial effusion. Small bilateral pleural effusions and left basilar atelectasis. Electronically Signed: Parag Mina MD at 14:30 EDT Tel [phone], Service support , Abdomen CT 03/23/18 16:33 IMPRESSION: 1. Prior partial gastrectomy and gastrojejunostomy, which is bridged by a covered stent. The stent is patent, although there is moderate irregular intraluminal narrowing in the proximal aspect of the stent. 2. A few mildly distended small bowel loops again seen in the mid abdomen, but no significant transition point is apparent to suggest obstruction. No overtly suspicious bowel wall thickening, allowing that the mural margins of several loops are poorly defined secondary to volume averaging with adjacent small volume ascites. 3. Hepatomegaly with steatosis. The hemangioma in the medial right lobe seen on the IV contrast enhanced study is not apparent in this exam. 4. Nonvisualized gallbladder. 5. Apparent resection of the pancreatic head with anastomosis of the pancreatic body to the proximal duodenum. 6. Stable small right pleural effusion and pericardial effusion. There is stable subsegmental atelectasis in the left diaphragm and mild elevation of left diaphragm. 7. Stable atherosclerotic calcifications of the coronary arteries, abdominal aorta, and iliofemoral arteries. No demonstrated aneurysm. 8. Mildly enlarged prostate gland. 9. Exophytic cyst at the tip of the lower pole right kidney is not as clearly seen in this noncontrast study. No hydronephrosis. 10. Healed midline supraumbilical scar of the anterior abdominal wall. Electronically Signed: Abdi Rosado MD at 19:03 EDT , Service support , Assessment and Plan Abdominal pain. Assessment: -I personally reviewed the CT scan images. There still evidence of mesenteric disease. Small volume ascites. -No evidence of obstruction. -Likely ileus associated with constipation. -Discussed with Dr. Light. Agree with plan for GoLYTELY. Plan: -GoLYTELY. -Continue IV hydration. -Encouraged him up and out of bed with ambulation today. -Would hold off on antibiotics. 2) Metastatic pancreas cancer. Assessment: -He had marked improvement in his KPS and incremental decrease in CA-19-9 throughout the last 14 cycles of FOLFIRINOX. -He's been tolerating chemotherapy without any significant worsening of neuropathy. -There has been difficulty with significant hypokalemia. -Discussed with him today we will plan on resuming chemotherapy once the acute abdominal pain/constipation has resolved. Plan: -Patient will follow up in the office next week following discharge. We'll plan on resuming chemotherapy in approximately 2 weeks. Medications: Prescriptions This Visit Medication Instructions Recorded Insulin Lispro [Humalog] 8 - 20 unit SC TIDCM 03/23/18 Magnesium 500 mg PO DAILY 03/23/18 Pantoprazole Sodium [Protonix] 40 mg PO DAILY 03/23/18 Potassium Chloride [K-Dur] 20 meq PO DINNER 03/23/18 Potassium Chloride [K-Dur] 40 meq PO DAILY 03/23/18 Sucralfate [Carafate] 1 gm PO 4X/DAY PRN PRN 03/23/18 Medications Added to Medication List This Visit Category Date Time Status Enoxaparin [Lovenox] Med 03/24/18 10:00 Active 40 mg SC DAILY@1000 Ensure Clear Med 03/24/18 08:00 Active 120 ml PO TIDCM Primary Care Provider: Robert Cross Referring Provider:
[2018-03-24] MEDS: Morphine 2 MG/ML Syringe IV ×3 (12:33→22:06)
--- NOTE | 2018-03-24 13:06 | CASEMGMT ---
RN CM Assessment. See Link. DC Plan: home on discharge with family support. Sharyn REED RN ACM
[2018-03-24 13:09] LABS: Pathologist Review Reviewed
--- NOTE | 2018-03-24 13:33 | CHAPLAIN ---
Type of Pastoral Visit _x__ Initial Visit ___ Follow-up Visit ___ On-call Visit ___ General Patient Visit ___ Spiritual Assessment ___ Family Conference ___ Bereavement ___ Rapid Response ___ Code Blue ___ Other (describe below) Pastoral Care Referral From _x__ Patient ___ Family ___ Nurse ___ Physician ___ Outlet Manager ___ Marketing Research Intern ___ Other (describe below) Sacrament/Intervention _x__ Active listening ___ Anointing ___ Congregation ___ Bereavement ___ Communion _x__ Jaja exploration ___ ___ Life review _x__ Prayer ___ Reconciliation ___ Sacrament of Sick _x__ Supportive presence ___ Wedding ___ Other (describe below) Pastoral Comments patient describes current health concern and then later adds that he has been dealing with cancer including pancreatic; pt said that he preferred to come to this hospital and is pleased with the care; pt speaks of his jaja in God as he believes God has done many good things for him throughout the illness; pt said he would like future visits with the natural fabricator; pt welcomes prayer and presence; spouse of pt is also present
[2018-03-24] MEDS: Electrolyte Solution/Peg's 4000 ML PO (14:58)
--- NOTE | 2018-03-24 16:40 | PCM.PN.SRG ---
Patient Problems: Active and Suspected Problems Right sided abdominal pain (Acute) Subjective: Patient states that he feels much improved today much less pain, is able to lie straightened out passing flatus, no bowel movement - feels constipated - Physical Exam General: Alert, Oriented x3 Oral: Moist Mucosa Neck: Supple Lungs: Normal air movement Abdomen: Soft - much less tender in the right lower quadrant, abdomen is soft - no peritoneal signs Vital Signs Temp Pulse Resp BP Pulse Ox 98.6 F 81 18 115/74 93 03/24/18 14:54 03/24/18 14:54 03/24/18 14:54 03/24/18 14:54 03/24/18 14:54 Oxygen Delivery Method Room Air Weight: 73.2 kg Body Mass Index (BMI) 25.3 Intake and Output for Last 24 Hours 03/22/18 03/23/18 03/24/18 23:59 23:59 23:59 Intake Total 3628 / 3628 Output Total 800 / 800 Balance 2828 / 2828 Laboratory Tests Past 24 Hrs 03/24/18 03/24/18 05:20 05:20 WBC 9.8 RBC 2.98 L Hgb 8.9 L Hct 27.2 L MCV 91.3 MCH 29.9 MCHC 32.7 RDW 21.6 H RDW Differential 68.9 H Plt Count 121 L MPV 9.9 Neut % (Auto) Not Reportable Absolute Neuts (auto) 9.4 H Absolute Lymphs (auto) 0.20 L Total Counted 100 Neutrophils % (Manual) 79 H Band Neutrophils % 17 H Lymphocytes % (Manual) 2 L Monocytes % (Manual) 2 Diff Path Review Reviewed Platelet Estimate MOD DEC Plt Morphology Comment LARGE Hypochromasia 1+ Anisocytosis 1+ Microcytosis 1+ Sodium 132 L Potassium 4.1 Chloride 101 Carbon Dioxide 25.0 Anion Gap 6 BUN 8 Creatinine 0.54 L Estim Creat Clear Calc 131.28 Est GFR (MDRD) Af Amer 197 Est GFR (MDRD) Non-Af 163 BUN/Creatinine Ratio 14.7 Glucose 225 H Calcium 6.8 L Magnesium 1.8 POC Glucose 03/24/18 03/24/18 03/23/18 11:51 06:00 23:32 POC Glucose 191 H 238 H 222 H Medical Necessity - Tobacco Use Smoking Status: Former smoker Tobacco Use: Non-smoker Assessment/Plan All Active Problems Right sided abdominal pain (Acute) Impression: right sided abdominal pain - resolving Plan: no surgical intervention required may consider paracentesis but patient is not interested in this Dr. Mccabe will be available this weekend if any surgical problems develop, but at this point, I do not believe that patient requires any surgical care.
[2018-03-24] MEDS: Bisacodyl 10 MG Suppository RECTAL (17:39)
[2018-03-24 17:51] LABS: Bedside Glucose 187 mg/dL (70-110)
[2018-03-24] MEDS: HYDROcodone Bitartrate/Apap 5/325 Tablet PO (19:47)
[2018-03-24] MEDS: Bisacodyl 5 MG Tablet 10 MG PO (19:48)
[2018-03-24] MEDS: Tamsulosin HCl 0.4 MG Capsule PO (21:57)
[2018-03-24 22:16] LABS: Bedside Glucose 184 mg/dL (70-110)
[2018-03-25] VITALS (10 sets, daily range): BP systolic 99–125; BP diastolic 59–87; PULSE 85–176; RESP 18; TEMP 36.5–37.2; O2SAT 92–98
[2018-03-25] MEDS: Insulin Lispro 100 UNIT/ML INSULN.PEN SC ×5 (00:53→23:37)
[2018-03-25] MEDS: ALPRAZolam 0.5 MG Tablet PO (00:56)
[2018-03-25 01:21] LABS: Bedside Glucose 158 mg/dL (70-110)
[2018-03-25] MEDS: 0.9% Normal Saline 1,000 ML 150 ML IV ×4 (06:46→18:22)
[2018-03-25 06:51] LABS: Bedside Glucose 183 mg/dL (70-110)
[2018-03-25] MEDS: Enoxaparin 40 MG/0.4 ML Syringe SC (08:26)
[2018-03-25] MEDS: Pantoprazole Sodium 40 MG Tablet PO ×2 (08:26→20:53)
[2018-03-25] MEDS: Clopidogrel Bisulfate 75 MG Tablet PO (08:26)
[2018-03-25 08:46] LABS: Absolute Lymphocyte Count 0.37 X10^3/ul (0.83-4.51); Absolute Neutrophil Count 2.3 X10^3/uL (2.0-7.7); Eosinophil# 0.01 X10^3/uL; Eosinophils% 0.4 % (0-5); Hematocrit 25.5 % (40-54); Hemoglobin 8.3 g/dl (13.0-16.5); Lymphocyte # 0.37 X10^3/ul (4.0); Lymphocyte % 13.8 % (19-41); Mean Corp Hgb Conc 32.5 g/gl (32-36); Mean Corpuscular Hgb 29.6 pg (27.0-32.0); Mean Corpuscular Volume 91.1 fL (80-94); Mean Platelet Vol. 9.2 fl (6.2-12.0); Monocyte# 0.03 X10^3/uL; Monocyte% 1.1 % (0-10); Neutrophil # 2.28 X10^3/uL (2.7-7.7); Neutrophil % 84.7 % (47-70); Platelet Count 87 K/mm3 (150-450); RBC Distribution Width CV 21.7 % (11.6-14.6); RBC Distribution Width SD 69.4 fl (35.1-43.9); White Blood Count 2.7 K/mm3 (4.4-11.0)
[2018-03-25 08:47] LABS: Differential Indicated SCAN CRITERIA MET; POSITIVE COUNT NO; POSITIVE DIFFERENTIAL YES; POSITIVE MORPHOLOGY YES
[2018-03-25 08:54] LABS: Anion Gap 6 (5-15); BUN 8 mg/dL (7-18); BUN/Creat Ratio 16.9 RATIO (10-20); Calcium,Total 6.9 mg/dL (8.5-10.1); Chloride 103 mmol/L (98-107); Creatinine, Serum 0.47 mg/dL (0.70-1.30); EST Glomerular Filtration Rate 192 mL/min (>60); Est Glom Filt Rate - Afr Amer 233 mL/min (>60); Estimated Creatinine Clearance 156.26 ml/min; Glucose 184 mg/dL (74-106); Magnesium 1.8 mg/dL (1.6-2.6); Potassium 3.7 mmol/L (3.5-5.1); Sodium Level 133 mmol/L (136-145)
[2018-03-25 09:36] LABS: Anisocytosis 1+; Hypochromasia 2+; Platelet Estimate MOD DEC (ADEQ)
--- NOTE | 2018-03-25 11:17 | PCM.PN.HOSP ---
Patient Problems: Active and Suspected Problems Right sided abdominal pain (Acute) Subjective: Patient seen and examined. He had 3 bowel movements overnight and feels better. He denies any fever or chills, any nausea vomiting or diarrhea. He feels well and states he can go home today. Review of systems otherwise negative. Vitals/I&O's: Vital Signs Temp Pulse Resp BP Pulse Ox 99.0 F 85 18 104/69 92 03/25/18 08:00 03/25/18 08:00 03/25/18 08:00 03/25/18 08:00 03/25/18 08:00 Oxygen Delivery Method Room Air Weight: 161 lb 6.054 oz Body Mass Index (BMI) 25.3 Intake and Output for Last 24 Hours 03/23/18 03/24/18 03/25/18 23:59 23:59 23:59 Intake Total 5691 / 5691 1481 / 1481 Output Total 1150 / 1150 Balance 4541 / 4541 1481 / 1481 General: Alert, Oriented x3, Cooperative, No apparent distress HEENT: Atraumatic, PERRLA, EOMI, Normocephalic Oral: Moist Mucosa Neck: Supple, No JVD, Negative Carotid Bruits, Negative Hepatojugular Reflux, No Nodes Lungs: Clear to auscultation, Normal air movement, No rhonchi, No wheeze, No rales Cardiovascular: Regular rate, Regular Rhythm, Normal S1, Normal S2, No murmurs Abdomen: Bowel Sounds Present, Soft, Non Tender, Non-Distended, No Hepato-splenomegaly Extremities: No clubbing, No cyanosis, No edema, Capillary Refill Less than 3 Seconds Skin: No rashes, No breakdown, Ulcer/ Wound Musculoskeletal: No Tenderness to Palpation of Joints or Extremities Lymphatic: No Cervical, Supraclavicular, or Inguinal Adenopathy Neurological: Cranial nerves II-XII grossly intact Psych/Mental Status: Normal Affect, Appropriate, Alert and oriented to time, place, person, mood and affect Laboratory Results 03/24/18 05:20: Diff Path Review Reviewed 03/24/18 11:51: POC Glucose 191 H 03/24/18 17:37: POC Glucose 187 H 03/24/18 21:55: POC Glucose 184 H 03/25/18 00:52: POC Glucose 158 H 03/25/18 06:43: POC Glucose 183 H 03/25/18 08:25: WBC 2.7 L, RBC 2.80 L, Hgb 8.3 L, Hct 25.5 L, MCV 91.1, MCH 29.6, MCHC 32.5, RDW 21.7 H, RDW Differential 69.4 H, Plt Count 87 L, MPV 9.2, Immature Gran % (Auto) 0.000, Neut % (Auto) 84.7 H, Lymph % (Auto) 13.8 L, Miller % (Auto) 1.1, Eos % (Auto) 0.4, Baso % (Auto) 0.0, Absolute Neuts (auto) 2.3, Absolute Lymphs (auto) 0.37 L, Total Counted Not Reportable, Platelet Estimate MOD DEC, Hypochromasia 2+, Anisocytosis 1+ 03/25/18 08:25: Sodium 133 L, Potassium 3.7, Chloride 103, Carbon Dioxide 24.0, Anion Gap 6, BUN 8, Creatinine 0.47 L, Estim Creat Clear Calc 156.26, Est GFR (MDRD) Af Amer 233, Est GFR (MDRD) Non-Af 192, BUN/Creatinine Ratio 16.9, Glucose 184 H, Calcium 6.9 L, Magnesium 1.8 Current Medications Hydrocodone Bitart/Acetaminophen ([place] 5mg-325mg) 1 - 2 tablet PO Q4H PRN PRN PRN Reason: SEVERE PAIN (6-10/10) Last Admin: 03/24/18 19:47 Dose: 2 tablet Alprazolam (Xanax) 0.5 mg PO QHS PRN PRN PRN Reason: SLEEP Last Admin: 03/25/18 00:56 Dose: 0.5 mg Clopidogrel Bisulfate (Plavix) 75 mg PO DAILY [facility] Last Admin: 03/25/18 08:26 Dose: 75 mg Enoxaparin Sodium (Lovenox) 40 mg SC DAILY@1000 [facility] Last Admin: 03/25/18 08:26 Dose: 40 mg Heparin Sodium (Beef Lung) (Heparin 500 Unit/5 Ml (100/Ml)) 500 unit IV UD PRN PRN Reason: HEPARIN FLUSH Sodium Chloride () 1,000 mls @ 150 mls/hr IV .Q6H40M [facility] Last Admin: 03/25/18 06:46 Dose: 150 mls/hr Insulin Human Lispro (Humalog Kwikpen (Bkc)) 0 unit SC Q6 [facility] PRN Reason: Protocol Last Admin: 03/25/18 06:45 Dose: 2 u Morphine Sulfate () 4 - 6 mg IV Q3H PRN PRN PRN Reason: MOD-SEVERE PAIN (4-10/10) Last Admin: 03/24/18 22:06 Dose: 4 mg Nutritional Formula (Lactose Free) (Ensure Clear) 120 ml PO TIDCM [facility] Last Admin: 03/25/18 08:23 Dose: Not Given Pantoprazole Sodium (Protonix) 40 mg PO BID [facility] Last Admin: 03/25/18 08:26 Dose: 40 mg Sodium Chloride () 10 ml IV UD PRN PRN Reason: VAD FLUSH Last Admin: 03/24/18 18:05 Dose: 10 ml Tamsulosin HCl (Flomax) 0.4 mg PO QHS [facility] Last Admin: 03/24/18 21:57 Dose: 0.4 mg Medical Necessity - Tobacco Use Smoking Status: Former smoker Tobacco Use: Non-smoker Assessment/Plan All Active Problems Right sided abdominal pain (Acute) 58-year-old male with a history of metastatic pancreatic cancer admitted to a complaint of abdominal pain and found to have constipation. 1. Severe slow transit constipation resolved. Had 3 bowel movements overnight and feels well CT abdomen showed large volume stool given Golytely, which helped with bowel movements general surgery consulted. Recommended paracentesis but he refused. On vicodin at home. Will dc home on Dulcolax and Bisacodyl to help with bowel regimen 2. Metastatic pancreatic ca s/p Whipple's procecdure had surgery in 2016; surgery recurred and he has been on chemotherapy since. has a stent in upper small intestine which is patent, per CT abdomen done. oncology on board 3. Nonsustained SVT: Mg was 1.8. was given Mg. Mg today remains 1.8. Will give Mg today. 4. Dm2: continue current meds 5. Hyperlipidemia: on statin 6. Chronic thrombocytopenia normocytic normochromic anemia: Likely due to cancer and chemotherapy. Platelets down to 87 today, from 120s on admission. Hb is 8.3 7. Leukopenia: wbc is 2.7 now. Was 20.1 on admission, due to Neupogen administered after chemo. Will discuss with Oncology about given neupogen today. 8. Chronic hyponatremia: Na is 133 today. Stable. Will monitor 9. Ascites: per CT. No indication of SBP. Paracentesis recommended by surgeon. Patient refuses. 10.DVT prophylaxis: lovenox D Code Visit Inpatient E&M: 87586 Subs Hosp L3
--- NOTE | 2018-03-25 11:29 | PN_ITS ---
Patient Problems: Active and Suspected Problems Right sided abdominal pain (Acute) Subjective: Patient seen and examined. He had 3 bowel movements overnight and feels better. He denies any fever or chills, any nausea vomiting or diarrhea. He feels well and states he can go home today. Review of systems otherwise negative. Vitals/I&O's: Vital Signs Temp Pulse Resp BP Pulse Ox 99.0 F 85 18 104/69 92 03/25/18 08:00 03/25/18 08:00 03/25/18 08:00 03/25/18 08:00 03/25/18 08:00 Oxygen Delivery Method Room Air Weight: 161 lb 6.054 oz Body Mass Index (BMI) 25.3 Intake and Output for Last 24 Hours 03/23/18 03/24/18 03/25/18 23:59 23:59 23:59 Intake Total 5691 / 5691 1481 / 1481 Output Total 1150 / 1150 Balance 4541 / 4541 1481 / 1481 General: Alert, Oriented x3, Cooperative, No apparent distress HEENT: Atraumatic, PERRLA, EOMI, Normocephalic Oral: Moist Mucosa Neck: Supple, No JVD, Negative Carotid Bruits, Negative Hepatojugular Reflux, No Nodes Lungs: Clear to auscultation, Normal air movement, No rhonchi, No wheeze, No rales Cardiovascular: Regular rate, Regular Rhythm, Normal S1, Normal S2, No murmurs Abdomen: Bowel Sounds Present, Soft, Non Tender, Non-Distended, No Hepato- splenomegaly Extremities: No clubbing, No cyanosis, No edema, Capillary Refill Less than 3 Seconds Skin: No rashes, No breakdown, Ulcer/ Wound Musculoskeletal: No Tenderness to Palpation of Joints or Extremities Lymphatic: No Cervical, Supraclavicular, or Inguinal Adenopathy Neurological: Cranial nerves II-XII grossly intact Psych/Mental Status: Normal Affect, Appropriate, Alert and oriented to time, place, person, mood and affect Laboratory Results 03/24/18 05:20: Diff Path Review Reviewed 03/24/18 11:51: POC Glucose 191 H 03/24/18 17:37: POC Glucose 187 H 03/24/18 21:55: POC Glucose 184 H 03/25/18 00:52: POC Glucose 158 H 03/25/18 06:43: POC Glucose 183 H 03/25/18 08:25: WBC 2.7 L, RBC 2.80 L, Hgb 8.3 L, Hct 25.5 L, MCV 91.1, MCH 29.6 , MCHC 32.5, RDW 21.7 H, RDW Differential 69.4 H, Plt Count 87 L, MPV 9.2, Immature Gran % (Auto) 0.000, Neut % (Auto) 84.7 H, Lymph % (Auto) 13.8 L, [place] % (Auto) 1.1, Eos % (Auto) 0.4, Baso % (Auto) 0.0, Absolute Neuts (auto) 2.3, Absolute Lymphs (auto) 0.37 L, Total Counted Not Reportable, Platelet Estimate MOD DEC, Hypochromasia 2+, Anisocytosis 1+ 03/25/18 08:25: Sodium 133 L, Potassium 3.7, Chloride 103, Carbon Dioxide 24.0, Anion Gap 6, BUN 8, Creatinine 0.47 L, Estim Creat Clear Calc 156.26, Est GFR ( MDRD) Af Amer 233, Est GFR (MDRD) Non-Af 192, BUN/Creatinine Ratio 16.9, Glucose 184 H, Calcium 6.9 L, Magnesium 1.8 Current Medications Hydrocodone Bitart/Acetaminophen ([place] 5mg-325mg) 1 - 2 tablet PO Q4H PRN PRN PRN Reason: SEVERE PAIN (6-10/10) Last Admin: 03/24/18 19:47 Dose: 2 tablet Alprazolam (Xanax) 0.5 mg PO QHS PRN PRN PRN Reason: SLEEP Last Admin: 03/25/18 00:56 Dose: 0.5 mg Clopidogrel Bisulfate (Plavix) 75 mg PO DAILY [facility] Last Admin: 03/25/18 08:26 Dose: 75 mg Enoxaparin Sodium (Lovenox) 40 mg SC DAILY@1000 [facility] Last Admin: 03/25/18 08:26 Dose: 40 mg Heparin Sodium (Beef Lung) (Heparin 500 Unit/5 Ml (100/Ml)) 500 unit IV UD PRN PRN Reason: HEPARIN FLUSH Sodium Chloride () 1,000 mls @ 150 mls/hr IV .Q6H40M [facility] Last Admin: 03/25/18 06:46 Dose: 150 mls/hr Insulin Human Lispro (Humalog Kwikpen (Bkc)) 0 unit SC Q6 [facility] PRN Reason: Protocol Last Admin: 03/25/18 06:45 Dose: 2 u Morphine Sulfate () 4 - 6 mg IV Q3H PRN PRN PRN Reason: MOD-SEVERE PAIN (4-10/10) Last Admin: 03/24/18 22:06 Dose: 4 mg Nutritional Formula (Lactose Free) (Ensure Clear) 120 ml PO TIDCM [facility] Last Admin: 03/25/18 08:23 Dose: Not Given Pantoprazole Sodium (Protonix) 40 mg PO BID [facility] Last Admin: 03/25/18 08:26 Dose: 40 mg Sodium Chloride () 10 ml IV UD PRN PRN Reason: VAD FLUSH Last Admin: 03/24/18 18:05 Dose: 10 ml Tamsulosin HCl (Flomax) 0.4 mg PO QHS [facility] Last Admin: 03/24/18 21:57 Dose: 0.4 mg Medical Necessity - Tobacco Use Smoking Status: Former smoker Tobacco Use: Non-smoker Assessment/Plan All Active Problems Right sided abdominal pain (Acute) 58-year-old male with a history of metastatic pancreatic cancer admitted to a complaint of abdominal pain and found to have constipation. 1. Severe slow transit constipation * resolved. Had 3 bowel movements overnight and feels well * CT abdomen showed large volume stool * given Golytely, which helped with bowel movements * general surgery consulted. Recommended paracentesis but he refused. * On vicodin at home. Will dc home on Dulcolax and Bisacodyl to help with bowel regimen * 2. Metastatic pancreatic ca s/p Whipple's procecdure * had surgery in 2016; surgery recurred and he has been on chemotherapy since. * has a stent in upper small intestine which is patent, per CT abdomen done. * oncology on board * 3. Nonsustained SVT: Mg was 1.8. was given Mg. Mg today remains 1.8. Will give Mg today. 4. Dm2: continue current meds 5. Hyperlipidemia: on statin 6. Chronic thrombocytopenia normocytic normochromic anemia: Likely due to cancer and chemotherapy. Platelets down to 87 today, from 120s on admission. Hb is 8.3 7. Leukopenia: wbc is 2.7 now. Was 20.1 on admission, due to Neupogen administered after chemo. Will discuss with Oncology about given neupogen today. 8. Chronic hyponatremia: Na is 133 today. Stable. Will monitor 9. Ascites: per CT. No indication of SBP. Paracentesis recommended by surgeon. Patient refuses. 10.DVT prophylaxis: lovenox D Code Visit Inpatient E&M: 74354 Subs Hosp L3
[2018-03-25 12:45] LABS: Bedside Glucose 215 mg/dL (70-110)
--- NOTE | 2018-03-25 15:34 | EKG12_ITS ---
Test Reason : SVT Blood Pressure : / mmHG Vent. Rate : 148 BPM Atrial Rate : 150 BPM P-R Int : 000 ms QRS Dur : 086 ms QT Int : 310 ms P-R-T Axes : 000 031 022 degrees QTc Int : 486 ms Supraventricular tachycardia Inferior infarct , age undetermined Anterolateral infarct , age undetermined Abnormal ECG Confirmed by BEBETO ROE, NATHAN ([id number]), video tape editor SHERI GONZALEZ ([id number]) on 03/28/2018 2:32:25 PM Referred By: DASH Confirmed By:NATHAN TATE MD
[2018-03-25] MEDS: Metoprolol Tartrate 5 MG/5 ML Vial 2.5 MG IV (15:52)
[2018-03-25] MEDS: 0.9% NaCl VAD Flush 10 ML IV (15:57)
--- NOTE | 2018-03-25 17:05 | EKG12_ITS ---
Test Reason : SVT Blood Pressure : / mmHG Vent. Rate : 140 BPM Atrial Rate : 136 BPM P-R Int : 000 ms QRS Dur : 084 ms QT Int : 326 ms P-R-T Axes : 000 006 057 degrees QTc Int : 497 ms Supraventricular tachycardia Low voltage QRS Inferior infarct , age undetermined Anterior infarct, age undetermined, cannot be excluded Abnormal ECG Confirmed by BEBETO ROE, NATHAN ([id number]), editor map SHERI GONZALEZ ([id number]) on 03/28/2018 2:31:55 PM Referred By: DASH Confirmed By:NATHAN TATE MD
[2018-03-25 19:11] LABS: Bedside Glucose 179 mg/dL (70-110)
--- NOTE | 2018-03-25 20:12 | NURSING ---
Pt HR 176bpm on monitor, regular, lasting approx. 12 seconds before converting back to sinus rhythm, rate 91bpm. Pt found sitting in recliner, resting. Denies chest pain or SOB. BP 114/76. Dr. Huston notified and ordered PO K+, IV Mag, and Coreg. Will continue to monitor.
[2018-03-25] MEDS: Magnesium Sulfate 1 GM in 0.9% Normal Saline 100 ML IV (20:50)
[2018-03-25] MEDS: Carvedilol 3.125 MG TABLET PO (20:53)
[2018-03-25] MEDS: Tamsulosin HCl 0.4 MG Capsule PO (20:53)
[2018-03-25 23:51] LABS: Bedside Glucose 178 mg/dL (70-110)
[2018-03-26] VITALS (24 sets, daily range): BP systolic 79–108; BP diastolic 43–76; PULSE 65–161; RESP 16–22; TEMP 36.2–37.1; O2SAT 88–98
[2018-03-26] MEDS: 0.9% Normal Saline 1,000 ML 150 ML IV ×4 (01:05→21:56)
[2018-03-26] MEDS: Insulin Lispro 100 UNIT/ML INSULN.PEN SC ×4 (05:47→23:33)
[2018-03-26] MEDS: 0.9% NaCl VAD Flush 10 ML IV ×3 (05:48→19:25)
[2018-03-26 06:10] LABS: Bedside Glucose 217 mg/dL (70-110)
[2018-03-26 06:21] LABS: Absolute Lymphocyte Count 0.58 X10^3/ul (0.83-4.51); Absolute Neutrophil Count 2.4 X10^3/uL (2.0-7.7); Eosinophil# 0.01 X10^3/uL; Eosinophils% 0.3 % (0-5); Hematocrit 28.3 % (40-54); Hemoglobin 9.4 g/dl (13.0-16.5); Lymphocyte # 0.58 X10^3/ul (4.0); Lymphocyte % 18.6 % (19-41); Mean Corp Hgb Conc 33.2 g/gl (32-36); Mean Corpuscular Hgb 29.9 pg (27.0-32.0); Mean Corpuscular Volume 90.1 fL (80-94); Mean Platelet Vol. 11.2 fl (6.2-12.0); Monocyte# 0.13 X10^3/uL; Monocyte% 4.2 % (0-10); Neutrophil # 2.37 X10^3/uL (2.7-7.7); Neutrophil % 76.3 % (47-70); Platelet Count 77 K/mm3 (150-450); RBC Distribution Width CV 21.9 % (11.6-14.6); RBC Distribution Width SD 69.2 fl (35.1-43.9); Red Blood Count 3.14 M/mm3 (4.6-6.2); White Blood Count 3.1 K/mm3 (4.4-11.0)
[2018-03-26 06:23] LABS: Differential Indicated SCAN CRITERIA MET; POSITIVE COUNT NO; POSITIVE DIFFERENTIAL YES; POSITIVE MORPHOLOGY YES
[2018-03-26 06:24] LABS: Anion Gap 8 (5-15); BUN 9 mg/dL (7-18); BUN/Creat Ratio 18.6 RATIO (10-20); Calcium,Total 6.7 mg/dL (8.5-10.1); Chloride 105 mmol/L (98-107); Creatinine, Serum 0.48 mg/dL (0.70-1.30); EST Glomerular Filtration Rate 187 mL/min (>60); Est Glom Filt Rate - Afr Amer 226 mL/min (>60); Estimated Creatinine Clearance 153.01 ml/min; Glucose 168 mg/dL (74-106); Sodium Level 135 mmol/L (136-145)
--- NOTE | 2018-03-26 06:48 | NURSING ---
HR sustained in the 140's. Pt sleeping, BP 98/43, denies chest pain. Attempted vagal maneuvers without success. hospitalist contacted.
[2018-03-26 06:51] LABS: Anisocytosis 1+; Differential Comment SCAN; Hypochromasia 1+; Microcytosis 1+; Platelet Estimate MOD DEC (ADEQ)
[2018-03-26] MEDS: Metoprolol Tartrate 5 MG/5 ML Vial 2.5 MG IV (07:43)
--- NOTE | 2018-03-26 07:57 | NURSING ---
Report called to JOSE Baumann in ICU for transfer to ICU room 2.
--- NOTE | 2018-03-26 08:31 | ECHOD_ITS ---
Reason For Study: ABN EKG Procedure This was a 2D Doppler, Color Flow transthoracic echocardiogram. Exam performed portable in ICU/CCU. Left Ventricle Normal size and thickness. The estimated ejection fraction is 65 %. Stage 1 diastolic dysfunction. No regional wall motion abnormalities noted. Right Ventricle Normal size and thickness. Normal systolic function. Atria The left atrium is moderately enlarged. Normal right atrium. Normal atrial septum. Mitral Valve The mitral valve is structurally normal. No prolapse or stenosis seen. Tricuspid Valve Normal tricuspid valve. Trivial tricuspid valve insufficiency. Right ventricular systolic pressure estimated to be 37 mmHg. Mild pulmonary hypertension. Aortic Valve Trisinus/trileaflet aortic valve. Normal aortic valve. Pulmonic Valve Normal pulmonic valve. Great Vessels Normal aortic root. Normal arch. Normal inferior vena cava. Inferior vena cava collapse with sniff. Pericardium/Pleural Trivial pericardial effusion. There are no echocardiographic indications of cardiac tamponade. MMode/2D Measurements & Calculations LVIDd: 4.5 cm IVSd: 1.0 cm Ao root diam: 3.5 cm LVIDs: 2.7 cm LVPWd: 1.0 cm RVDd: 2.9 cm FS: 40.7 % LAV(MOD-bp): 76.7 ml LA A4 area: 24.0 cm2 RA A4 area: 18.7 cm2 LAV(MOD-bp) Indexed: 39.7 ml/m2 LAV(MOD-sp2): 62.5 ml LAV(MOD-sp4): 89.6 ml Doppler Measurements & Calculations MV E max carlos: 78.4 cm/sec Lat Peak E' Carlos: 10.1 cm/sec Med Peak E' Carlos: 9.6 cm/sec MV A max carlos: 103.2 cm/sec E/E' lat: 7.8 E/E' med: 8.2 MV E/A: 0.76 Ao V2 max: 134.0 cm/sec LV V1 max: 129.2 cm/sec PA V2 max: 114.4 cm/sec Ao max P.2 mmHg LV V1 max P.7 mmHg TR max carlos: 274.7 cm/sec TR max P.2 mmHg Interpretation Summary The estimated ejection fraction is 65 %. Stage 1 diastolic dysfunction. The left atrium is moderately enlarged. Trivial tricuspid valve insufficiency. Right ventricular systolic pressure estimated to be 37 mmHg. Trivial pericardial effusion. There are no echocardiographic indications of cardiac tamponade. There is no comparison study available. Ordering Physician: Usman Mccabe Referring Physician: Robert Cross Performed By: Lauren Faria RDCS, RVT
[2018-03-26] MEDS: Adenosine 6 MG/2 ML Syringe IV ×2 (08:50→19:25)
--- NOTE | 2018-03-26 09:03 | PCM.PN.SRG ---
Patient Problems: Active and Suspected Problems Right sided abdominal pain (Acute) Subjective: pain improved, tachycardia - Physical Exam General: Alert, Oriented x3 Lungs: Clear to auscultation Cardiovascular: Tachycardic Abdomen: Bowel Sounds Present, Soft, Non Tender, Distended Vital Signs Temp Pulse Resp BP Pulse Ox 97.8 F 151 H 20 H 79/66 L 92 03/26/18 08:18 03/26/18 08:18 03/26/18 08:18 03/26/18 08:18 03/26/18 08:18 Oxygen Flow Rate (L/min) 2 Oxygen Delivery Method Room Air Weight: 73.2 kg Body Mass Index (BMI) 25.3 Orthostatic Vital Signs Start: 03/25/18 15:27 Freq: q24h Status: Active Protocol: Activity Type Activity Date Activity User E-Sign Co-Sign Detail Recorded Client Recorded Date Recorded By Document 03/26/18 05:50 JCG [id number] 03/26/18 05:56 JC 03/26/18 05:50 Orthostatic Vitals Standing -Blood Pressure (90/60-120/80) 95/65 -Extremity Use Left Arm -Pulse Rate (60-100) 93 Sitting -Blood Pressure (90/60-120/80) 107/73 -Extremity Use Left Arm -Pulse Rate (60-100) 84 Lying -Blood Pressure (90/60-120/80) 108/75 -Extremity Use Left Arm -Pulse Rate (60-100) 81 Intake and Output for Last 24 Hours 03/24/18 03/25/18 03/26/18 23:59 23:59 23:59 Intake Total 5691 / 5691 5357 / 5357 1171 / 1171 Output Total 1150 / 1150 200 / 200 Balance 4541 / 4541 5357 / 5357 971 / 971 Laboratory Tests Past 24 Hrs 03/25/18 03/26/18 03/26/18 08:25 05:25 05:25 WBC 3.1 L RBC 3.14 L Hgb 9.4 L Hct 28.3 L MCV 90.1 MCH 29.9 MCHC 33.2 RDW 21.9 H RDW Differential 69.2 H Plt Count 77 L MPV 11.2 Immature Gran % (Auto) 0.600 Neut % (Auto) 76.3 H Lymph % (Auto) 18.6 L [place] % (Auto) 4.2 Eos % (Auto) 0.3 Baso % (Auto) 0.0 Absolute Neuts (auto) 2.4 Absolute Lymphs (auto) 0.58 L Total Counted Not Reportable Not Reportable Differential Comment SCAN Platelet Estimate MOD DEC MOD DEC Hypochromasia 2+ 1+ Anisocytosis 1+ 1+ Microcytosis 1+ Sodium 135 L Potassium 4.0 Chloride 105 Carbon Dioxide 22.0 Anion Gap 8 BUN 9 Creatinine 0.48 L Estim Creat Clear Calc 153.01 Est GFR (MDRD) Af Amer 226 Est GFR (MDRD) Non-Af 187 BUN/Creatinine Ratio 18.6 Glucose 168 H Calcium 6.7 L MRSA (PCR) 03/26/18 08:10 WBC RBC Hgb Hct MCV MCH MCHC RDW RDW Differential Plt Count MPV Immature Gran % (Auto) Neut % (Auto) Lymph % (Auto) [place] % (Auto) Eos % (Auto) Baso % (Auto) Absolute Neuts (auto) Absolute Lymphs (auto) Total Counted Differential Comment Platelet Estimate Hypochromasia Anisocytosis Microcytosis Sodium Potassium Chloride Carbon Dioxide Anion Gap BUN Creatinine Estim Creat Clear Calc Est GFR (MDRD) Af Amer Est GFR (MDRD) Non-Af BUN/Creatinine Ratio Glucose Calcium MRSA (PCR) Pending POC Glucose 03/26/18 03/25/18 03/25/18 05:45 23:36 19:03 POC Glucose 217 H 178 H 179 H 03/25/18 12:34 POC Glucose 215 H Medical Necessity - Tobacco Use Smoking Status: Former smoker Tobacco Use: Non-smoker Assessment/Plan All Active Problems Right sided abdominal pain (Acute) patient with advanced metastatic prostate cancer. Abdominal pain had resolved. Question whether partially related to constipation. patient was anticipating being discharged yesterday but yesterday and overnight had SVT up to her rate of 170. Currently, the patient's heart rate was in the 150s and he was transferred to the ICU for stepdown. Plans for starting amiodarone and adenosine reviewed CT scan of abdomen and pelvis. Agree with bilateral small pleural effusions, ascites, feel abnormalities of the bowel in the right lower quadrant are likely carcinomatosis and studding. There is no signs of true obstruction. I am concerned that there appears to be pericardial effusion to me on the initial CT scan. This wasn't mentioned in the CT scan report and I did not feel this was likely significant but now that the patient has SVT and hypotension - discussed this with Dr. Eng. I had ordered an echocardiogram prior to the patient being seen by Dr. Eng. I understand the patient spontaneously nicely to the adenosine, Dr. Eng may or may not feel that an echocardiogram is indicated. I will defer to his judgment.
[2018-03-26] MEDS: 0.9% NaCl Peripheral Flush Adult/Peds IV ×4 (09:25→19:25)
[2018-03-26] MEDS: Metoprolol Tartrate 25 MG Tablet PO ×2 (09:25→21:52)
[2018-03-26] MEDS: Enoxaparin 40 MG/0.4 ML Syringe SC (09:28)
[2018-03-26] MEDS: Clopidogrel Bisulfate 75 MG Tablet PO (09:28)
[2018-03-26] MEDS: Pantoprazole Sodium 40 MG Tablet PO ×2 (09:28→21:52)
--- NOTE | 2018-03-26 09:34 | PCM.PN.HOSP ---
Patient Problems: Active and Suspected Problems Right sided abdominal pain (Acute) Subjective: Mr. Smith is a 58-year-old male with a past medical history of BPH, hyperlipidemia, diabetes mellitus type 2, pancreatic cancer (diagnosed in 2015 and currently receiving chemotherapy following a Whipple's procedure in May 2016) and coronary artery disease who presented to the emergency department at [facility] on 03/23/2018 complaining of right-sided abdominal pain which had been present for 3 days prior to admission. A CT scan of the abdomen and pelvis was done in the emergency department and revealed nondistended fluid-filled small bowel loops with thickened wall in the right mid abdomen and right lower quadrant extending into the terminal ileum. A covered stent was seen within the proximal small bowel. There was a hypodense area noted in the dome of the liver and there was a moderate amount of fecal material seen in the colon. There was ascites present and small bilateral pleural effusions. Was admitted and managed for constipation and started on GoLYTELY which helped relieve constipation. Patient seen and examined today. She was noted to be in SVT which went into A. fib yesterday. He responded briefly to IV Lopressor and also converted spontaneously. However early this morning patient's heart rate was noted to be in the 150s and 160s. Percent down to ICU. Plan was to start amiodarone drip and cardiology was consulted. However it resolved with administration of adenosine. 2D echo ordered and is pending. Labs and vitals reviewed. Patient denied having any sensation of palpitations or dizziness, chest pain or shortness of breath, abdominal pain. . Vitals/I&O's: Vital Signs Temp Pulse Resp BP Pulse Ox 97.8 F 87 20 H 80/60 L 92 03/26/18 08:18 03/26/18 09:25 03/26/18 08:18 03/26/18 09:25 03/26/18 08:18 Oxygen Flow Rate (L/min) 2 Oxygen Delivery Method Room Air Weight: 161 lb 6.054 oz Body Mass Index (BMI) 25.3 Orthostatic Vital Signs Start: 03/25/18 15:27 Freq: q24h Status: Active Protocol: Activity Type Activity Date Activity User E-Sign Co-Sign Detail Recorded Client Recorded Date Recorded By Document 03/26/18 05:50 G [id number] 03/26/18 05:56 [facility] 03/26/18 05:50 Orthostatic Vitals Standing -Blood Pressure (90/60-120/80) 95/65 -Extremity Use Left Arm -Pulse Rate (60-100) 93 Sitting -Blood Pressure (90/60-120/80) 107/73 -Extremity Use Left Arm -Pulse Rate (60-100) 84 Lying -Blood Pressure (90/60-120/80) 108/75 -Extremity Use Left Arm -Pulse Rate (60-100) 81 Intake and Output for Last 24 Hours 03/24/18 03/25/18 03/26/18 23:59 23:59 23:59 Intake Total 5691 / 5691 5357 / 5357 1171 / 1171 Output Total 1150 / 1150 200 / 200 Balance 4541 / 4541 5357 / 5357 971 / 971 General: Alert, Oriented x3, Cooperative, No apparent distress HEENT: Atraumatic, PERRLA, EOMI, Normocephalic Oral: Moist Mucosa Neck: Supple, No JVD, Negative Carotid Bruits Lungs: Clear to auscultation, Normal air movement, No rhonchi, No wheeze, No rales Cardiovascular: Regular rate, No murmurs, Tachycardic Abdomen: Bowel Sounds Present, Soft, Non Tender, Non-Distended, No Hepato-splenomegaly Extremities: No clubbing, No cyanosis, No edema, Capillary Refill Less than 3 Seconds Skin: No rashes, No breakdown Musculoskeletal: No Tenderness to Palpation of Joints or Extremities Lymphatic: No Cervical, Supraclavicular, or Inguinal Adenopathy Neurological: Cranial nerves II-XII grossly intact Psych/Mental Status: Normal Affect, Appropriate, Alert and oriented to time, place, person, mood and affect Laboratory Results 03/25/18 08:25: Total Counted Not Reportable, Platelet Estimate MOD DEC, Hypochromasia 2+, Anisocytosis 1+ 03/25/18 12:34: POC Glucose 215 H 03/25/18 19:03: POC Glucose 179 H 03/25/18 23:36: POC Glucose 178 H 03/26/18 05:25: WBC 3.1 L, RBC 3.14 L, Hgb 9.4 L, Hct 28.3 L, MCV 90.1, MCH 29.9, MCHC 33.2, RDW 21.9 H, RDW Differential 69.2 H, Plt Count 77 L, MPV 11.2, Immature Gran % (Auto) 0.600, Neut % (Auto) 76.3 H, Lymph % (Auto) 18.6 L, [place] % (Auto) 4.2, Eos % (Auto) 0.3, Baso % (Auto) 0.0, Absolute Neuts (auto) 2.4, Absolute Lymphs (auto) 0.58 L, Total Counted Not Reportable, Differential Comment SCAN, Platelet Estimate MOD DEC, Hypochromasia 1+, Anisocytosis 1+, Microcytosis 1+ 03/26/18 05:25: Sodium 135 L, Potassium 4.0, Chloride 105, Carbon Dioxide 22.0, Anion Gap 8, BUN 9, Creatinine 0.48 L, Estim Creat Clear Calc 153.01, Est GFR (MDRD) Af Amer 226, Est GFR (MDRD) Non-Af 187, BUN/Creatinine Ratio 18.6, Glucose 168 H, Calcium 6.7 L 03/26/18 05:45: POC Glucose 217 H 03/26/18 08:10: MRSA (PCR) Pending 03/26/18 09:13: Troponin I Pending Current Medications Hydrocodone Bitart/Acetaminophen ([place] 5mg-325mg) 1 - 2 tablet PO Q4H PRN PRN PRN Reason: SEVERE PAIN (6-10/10) Last Admin: 03/24/18 19:47 Dose: 2 tablet Alprazolam (Xanax) 0.5 mg PO QHS PRN PRN PRN Reason: SLEEP Last Admin: 03/25/18 00:56 Dose: 0.5 mg Aspirin (Aspirin, Baby) 81 mg PO DAILY@0800 [facility] Clopidogrel Bisulfate (Plavix) 75 mg PO DAILY [facility] Last Admin: 03/26/18 09:28 Dose: 75 mg Enoxaparin Sodium (Lovenox) 40 mg SC DAILY@1000 [facility] Last Admin: 03/26/18 09:28 Dose: 40 mg Heparin Sodium (Beef Lung) (Heparin 500 Unit/5 Ml (100/Ml)) 500 unit IV UD PRN PRN Reason: HEPARIN FLUSH Sodium Chloride () 1,000 mls @ 150 mls/hr IV .[id number] [facility] Last Admin: 07/22/18 07:40 Dose: 150 mls/hr Sodium Chloride () 250 mls @ 15 mls/hr IV .[id number] PRN PRN Reason: SALINE FLUSH Sodium Chloride () 500 mls @ 15 mls/hr IV .[id number] PRN PRN Reason: SALINE FLUSH Insulin Human Lispro (Humalog Kwikpen (Bkc)) 0 unit SC Q6 [facility] PRN Reason: Protocol Last Admin: 03/26/18 05:47 Dose: 4 u Metoprolol Tartrate (Lopressor (Beta Vasquez)) 25 mg PO BID [facility] Last Admin: 03/26/18 09:25 Dose: 25 mg Morphine Sulfate () 4 - 6 mg IV Q3H PRN PRN PRN Reason: MOD-SEVERE PAIN (4-10/10) Last Admin: 03/24/18 22:06 Dose: 4 mg Nutritional Formula (Lactose Free) (Ensure Clear) 120 ml PO TIDCM [facility] Last Admin: 03/26/18 09:31 Dose: 120 ml Pancrelipase (Creon Dr 12,000 Unit Capsule) 0 capsule PO TIDCM [facility] Last Admin: 03/26/18 09:27 Dose: 1 capsule Pantoprazole Sodium (Protonix) 40 mg PO BID [facility] Last Admin: 03/26/18 09:28 Dose: 40 mg Sodium Chloride () 10 ml IV UD PRN PRN Reason: VAD FLUSH Last Admin: 03/26/18 05:49 Dose: 10 ml Sodium Chloride () 5 - 30 ml IV UD PRN PRN Reason: SALINE FLUSH Last Admin: 03/26/18 09:25 Dose: 30 ml Tamsulosin HCl (Flomax) 0.4 mg PO QHS [facility] Last Admin: 03/25/18 20:53 Dose: 0.4 mg Medical Necessity - Tobacco Use Smoking Status: Former smoker Tobacco Use: Non-smoker Assessment/Plan All Active Problems Right sided abdominal pain (Acute) 58-year-old male with a history of metastatic pancreatic cancer admitted to a complaint of abdominal pain and found to have constipation. 1. Supraventricular tachycardia patient had tachycardia yesterday, with EKG initially showing SVT and subsequently showing Afib. Given IV lopressor pushes, and subsequently converted to sinus rhythm, rate controlled Patient remained stable overnight but early this morning heart rate went up to 150s and 170s. Patient was also had pulled 10 simple blood pressure down in the 90s. Decision was made to start IV amiodarone cardiology was consulted. However patient subsequently converted to sinus rhythm with initiation of 6mg of adenosine. cardiology on board. 2D echo ordered. carvedilol stopped per cardiology. now on metoprolol 25mg bid will monitor 2. Severe slow transit constipation resolved. had more bowel movmemnts overnight CT abdomen showed large volume stool given Golytely, which helped with bowel movements general surgery consulted. Recommended paracentesis but he refused. 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 Concern about pericardial effusion per initial CT scan, per surgery. Will review echo to assess for pericardial effusion On vicodin at home. Will dc home on Dulcolax and Bisacodyl to help with bowel regimen 2. Metastatic pancreatic ca s/p Whipple's procecdure had surgery in 2016; surgery recurred and he has been on chemotherapy since. has a stent in upper small intestine which is patent, per CT abdomen done. oncology on board 3. Nonsustained SVT: resolved. Now having SVT and paroxysmal Afib. will monitor electrolytes and replace as needed. 4. Dm2: on ISS. on lantus 25IU qhs at home. Will resume and montiro. Accuchecks ACHS 5. Hyperlipidemia: on statin 6. Chronic thrombocytopenia normocytic normochromic anemia: Likely due to cancer and chemotherapy. platelets down to 77 today. was 121 on admission. Will hold lovenox and monitor 7. Leukopenia: improving. Wbc is 3.1 today. WIll monitor 8. Chronic hyponatremia: Na is 133 today. Stable. Will monitor 9. Ascites: per CT. No indication of SBP. Paracentesis recommended by surgeon. Patient refuses. 10.DVT prophylaxis: SCDs. Will hold Lovenox on account of worsening thrombocytopenia. This note was generated with Re-APP dictation software. It may contain incorrect words, spelling, and punctuation that were not noted in checking the note before signing. Code Visit Inpatient E&M: 61802 [facility]
--- NOTE | 2018-03-26 09:46 | PN_ITS ---
Patient Problems: Active and Suspected Problems Right sided abdominal pain (Acute) Subjective: Mr. Smith is a 58-year-old male with a past medical history of BPH, hyperlipidemia, diabetes mellitus type 2, pancreatic cancer (diagnosed in 2015 and currently receiving chemotherapy following a Whipple's procedure in May 2016) and coronary artery disease who presented to the emergency department at [facility] on 03/23/2018 complaining of right- sided abdominal pain which had been present for 3 days prior to admission. A CT scan of the abdomen and pelvis was done in the emergency department and revealed nondistended fluid-filled small bowel loops with thickened wall in the right mid abdomen and right lower quadrant extending into the terminal ileum. A covered stent was seen within the proximal small bowel. There was a hypodense area noted in the dome of the liver and there was a moderate amount of fecal material seen in the colon. There was ascites present and small bilateral pleural effusions. Was admitted and managed for constipation and started on GoLYTELY which helped relieve constipation. Patient seen and examined today. She was noted to be in SVT which went into A. fib yesterday. He responded briefly to IV Lopressor and also converted spontaneously. However early this morning patient's heart rate was noted to be in the 150s and 160s. Percent down to ICU. Plan was to start amiodarone drip and cardiology was consulted. However it resolved with administration of adenosine. 2D echo ordered and is pending. Labs and vitals reviewed. Patient denied having any sensation of palpitations or dizziness, chest pain or shortness of breath, abdominal pain. . Vitals/I&O's: Vital Signs Temp Pulse Resp BP Pulse Ox 97.8 F 87 20 H 80/60 L 92 03/26/18 08:18 03/26/18 09:25 03/26/18 08:18 03/26/18 09:25 03/26/18 08:18 Oxygen Flow Rate (L/min) 2 Oxygen Delivery Method Room Air Weight: 161 lb 6.054 oz Body Mass Index (BMI) 25.3 Orthostatic Vital Signs Start: 03/25/18 15:27 Freq: q24h Status: Active Protocol: Activity Type Activity Date Activity User E-Sign Co-Sign Detail Recorded Client Recorded Date Recorded By Document 03/26/18 05:50 G [id number] 03/26/18 05:56 [facility] [place] 03/26/18 05:50 Orthostatic Vitals Standing -Blood Pressure (90/60-120/80) 95/65 -Extremity Use Left Arm -Pulse Rate (60-100) 93 Sitting -Blood Pressure (90/60-120/80) 107/73 -Extremity Use Left Arm -Pulse Rate (60-100) 84 Lying -Blood Pressure (90/60-120/80) 108/75 -Extremity Use Left Arm -Pulse Rate (60-100) 81 Intake and Output for Last 24 Hours 03/24/18 03/25/18 03/26/18 23:59 23:59 23:59 Intake Total 5691 / 5691 5357 / 5357 1171 / 1171 Output Total 1150 / 1150 200 / 200 Balance 4541 / 4541 5357 / 5357 971 / 971 General: Alert, Oriented x3, Cooperative, No apparent distress HEENT: Atraumatic, PERRLA, EOMI, Normocephalic Oral: Moist Mucosa Neck: Supple, No JVD, Negative Carotid Bruits Lungs: Clear to auscultation, Normal air movement, No rhonchi, No wheeze, No rales Cardiovascular: Regular rate, No murmurs, Tachycardic Abdomen: Bowel Sounds Present, Soft, Non Tender, Non-Distended, No Hepato- splenomegaly Extremities: No clubbing, No cyanosis, No edema, Capillary Refill Less than 3 Seconds Skin: No rashes, No breakdown Musculoskeletal: No Tenderness to Palpation of Joints or Extremities Lymphatic: No Cervical, Supraclavicular, or Inguinal Adenopathy Neurological: Cranial nerves II-XII grossly intact Psych/Mental Status: Normal Affect, Appropriate, Alert and oriented to time, place, person, mood and affect Laboratory Results 03/25/18 08:25: Total Counted Not Reportable, Platelet Estimate MOD DEC, Hypochromasia 2+, Anisocytosis 1+ 03/25/18 12:34: POC Glucose 215 H 03/25/18 19:03: POC Glucose 179 H 03/25/18 23:36: POC Glucose 178 H 03/26/18 05:25: WBC 3.1 L, RBC 3.14 L, Hgb 9.4 L, Hct 28.3 L, MCV 90.1, MCH 29.9 , MCHC 33.2, RDW 21.9 H, RDW Differential 69.2 H, Plt Count 77 L, MPV 11.2, Immature Gran % (Auto) 0.600, Neut % (Auto) 76.3 H, Lymph % (Auto) 18.6 L, Hood % (Auto) 4.2, Eos % (Auto) 0.3, Baso % (Auto) 0.0, Absolute Neuts (auto) 2.4, Absolute Lymphs (auto) 0.58 L, Total Counted Not Reportable, Differential Comment SCAN, Platelet Estimate MOD DEC, Hypochromasia 1+, Anisocytosis 1+, Microcytosis 1+ 03/26/18 05:25: Sodium 135 L, Potassium 4.0, Chloride 105, Carbon Dioxide 22.0, Anion Gap 8, BUN 9, Creatinine 0.48 L, Estim Creat Clear Calc 153.01, Est GFR ( MDRD) Af Amer 226, Est GFR (MDRD) Non-Af 187, BUN/Creatinine Ratio 18.6, Glucose 168 H, Calcium 6.7 L 03/26/18 05:45: POC Glucose 217 H 03/26/18 08:10: MRSA (PCR) Pending 03/26/18 09:13: Troponin I Pending Current Medications Hydrocodone Bitart/Acetaminophen (Hensley 5mg-325mg) 1 - 2 tablet PO Q4H PRN PRN PRN Reason: SEVERE PAIN (6-10/10) Last Admin: 03/24/18 19:47 Dose: 2 tablet Alprazolam (Xanax) 0.5 mg PO QHS PRN PRN PRN Reason: SLEEP Last Admin: 03/25/18 00:56 Dose: 0.5 mg Aspirin (Aspirin, Baby) 81 mg PO DAILY@0800 [facility] Clopidogrel Bisulfate (Plavix) 75 mg PO DAILY [facility] Last Admin: 03/26/18 09:28 Dose: 75 mg Enoxaparin Sodium (Lovenox) 40 mg SC DAILY@1000 [facility] Last Admin: 03/26/18 09:28 Dose: 40 mg Heparin Sodium (Beef Lung) (Heparin 500 Unit/5 Ml (100/Ml)) 500 unit IV UD PRN PRN Reason: HEPARIN FLUSH Sodium Chloride () 1,000 mls @ 150 mls/hr IV .[id number] [facility] Last Admin: 07/22/18 07:40 Dose: 150 mls/hr Sodium Chloride () 250 mls @ 15 mls/hr IV .[id number] PRN PRN Reason: SALINE FLUSH Sodium Chloride () 500 mls @ 15 mls/hr IV .[id number] PRN PRN Reason: SALINE FLUSH Insulin Human Lispro (Humalog Kwikpen (Bkc)) 0 unit SC Q6 AMMON PRN Reason: Protocol Last Admin: 03/26/18 05:47 Dose: 4 u Metoprolol Tartrate (Lopressor (Beta Vasquez)) 25 mg PO BID [facility] Last Admin: 03/26/18 09:25 Dose: 25 mg Morphine Sulfate () 4 - 6 mg IV Q3H PRN PRN PRN Reason: MOD-SEVERE PAIN (4-10/10) Last Admin: 03/24/18 22:06 Dose: 4 mg Nutritional Formula (Lactose Free) (Ensure Clear) 120 ml PO TIDCM [facility] Last Admin: 03/26/18 09:31 Dose: 120 ml Pancrelipase (Creon Dr 12,000 Unit Capsule) 0 capsule PO TIDCM [facility] Last Admin: 03/26/18 09:27 Dose: 1 capsule Pantoprazole Sodium (Protonix) 40 mg PO BID [facility] Last Admin: 03/26/18 09:28 Dose: 40 mg Sodium Chloride () 10 ml IV UD PRN PRN Reason: VAD FLUSH Last Admin: 03/26/18 05:49 Dose: 10 ml Sodium Chloride () 5 - 30 ml IV UD PRN PRN Reason: SALINE FLUSH Last Admin: 03/26/18 09:25 Dose: 30 ml Tamsulosin HCl (Flomax) 0.4 mg PO QHS [facility] Last Admin: 03/25/18 20:53 Dose: 0.4 mg Medical Necessity - Tobacco Use Smoking Status: Former smoker Tobacco Use: Non-smoker Assessment/Plan All Active Problems Right sided abdominal pain (Acute) 58-year-old male with a history of metastatic pancreatic cancer admitted to a complaint of abdominal pain and found to have constipation. 1. Supraventricular tachycardia * patient had tachycardia yesterday, with EKG initially showing SVT and subsequently showing Afib. Given IV lopressor pushes, and subsequently converted to sinus rhythm, rate controlled * Patient remained stable overnight but early this morning heart rate went up to 150s and 170s. Patient was also had pulled 10 simple blood pressure down in the 90s. Decision was made to start IV amiodarone cardiology was consulted. However patient subsequently converted to sinus rhythm with initiation of 6mg of adenosine. cardiology on board. 2D echo ordered. * carvedilol stopped per cardiology. now on metoprolol 25mg bid * will monitor * 2. Severe slow transit constipation * resolved. had more bowel movmemnts overnight * CT abdomen showed large volume stool * given Golytely, which helped with bowel movements * general surgery consulted. Recommended paracentesis but he refused. 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 Concern about pericardial effusion per initial CT scan, per surgery. Will review echo to assess for pericardial effusion * On vicodin at home. Will dc home on Dulcolax and Bisacodyl to help with bowel regimen * 2. Metastatic pancreatic ca s/p Whipple's procecdure * had surgery in 2016; surgery recurred and he has been on chemotherapy since. * has a stent in upper small intestine which is patent, per CT abdomen done. * oncology on board * 3. Nonsustained SVT: resolved. Now having SVT and paroxysmal Afib. will monitor electrolytes and replace as needed. 4. Dm2: on ISS. on lantus 25IU qhs at home. Will resume and montiro. Accuchecks ACHS 5. Hyperlipidemia: on statin 6. Chronic thrombocytopenia normocytic normochromic anemia: Likely due to cancer and chemotherapy. platelets down to 77 today. was 121 on admission. Will hold lovenox and monitor 7. Leukopenia: improving. Wbc is 3.1 today. WIll monitor 8. Chronic hyponatremia: Na is 133 today. Stable. Will monitor 9. Ascites: per CT. No indication of SBP. Paracentesis recommended by surgeon. Patient refuses. 10.DVT prophylaxis: SCDs. Will hold Lovenox on account of worsening thrombocytopenia. This note was generated with [employer] dictation software. It may contain incorrect words, spelling, and punctuation that were not noted in checking the note before signing. Code Visit Inpatient E&M: 87253 Subs Hosp L3
--- NOTE | 2018-03-26 09:57 | PCM.CONS.C ---
Problem List (1) Coronary artery disease Status: Acute (2) Hypertension Status: Chronic (3) Hypercholesterolemia Status: Acute (4) Supraventricular tachycardia Status: Acute Reason for Consult Date of Consultation: 03/26/18 Reason for Consultation: Supraventricular tachycardia, coronary artery disease, hypertension, hypercholesterolemia History of Present Illness: The patient is a 58 year old diabetic m who is status post pancreatic cancer diagnosis status post Whipple procedure followed by [facility] surgery about 2 years ago. He also has a history of coronary artery disease status post 5 stents at an outside facility in [place]. His last heart catheterization and stenting took place about 2 years ago in [place]. He does not follow-up with a insurance legal assistant locally. Patient was admitted with several day history of worsening pain was found to be constipated. In addition a CT scan of his chest and abdomen demonstrated ascites, bilateral pleural effusions, and suspicion for pericardial effusion. Patient was given a cathartic solution, and his constipation has markedly improved. Subsequent to this the patient developed several episodes of supraventricular tachycardia for which he received IV Lopressor therapy which corrected. A second episode last night self corrected, and a third one this morning lasting approximately 1 hour did not self-correct. Patient's blood pressure decreased into the 80s, and he was transferred to the ICU for PCU status care. Patient was completely unaware of his SVT and at no time developed chest pain, angina, shortness of breath or dyspnea. Patient was treated with IV adenosine 6 mg ?1 under my supervision which converted him from supraventricular tachycardia to normal sinus rhythm. Patient is on chronic Plavix therapy but not baby aspirin. [] Past Medical History Allergies/Adverse Reactions: Allergies No Known Allergies Allergy (Verified 03/23/18 13:03) Home Medications: Ambulatory Orders Medication Instructions Recorded Clopidogrel Bisulfate [Plavix] 75 mg PO DAILY 09/18/16 Hydrocodone Bitart/Apap 5-325 1 - 2 tablet PO Q6H PRN PRN #20 09/18/16 [[place] 5/325] tablet Insulin Glargine [Lantus (BKC)] 25 units SC QHS 09/18/16 Ondansetron [Zofran Odt] 4 mg PO Q8H PRN PRN #10 tablet 09/18/16 Rosuvastatin Calcium [Crestor] 40 mg PO DAILY 09/18/16 Tamsulosin HCl [Flomax] 0.4 mg PO QHS 09/18/16 Insulin Lispro [Humalog] 8 - 20 unit SC TIDCM 03/23/18 Magnesium 500 mg PO DAILY 03/23/18 Pantoprazole Sodium [Protonix] 40 mg PO DAILY 03/23/18 Potassium Chloride [K-Dur] 20 meq PO DINNER 03/23/18 Potassium Chloride [K-Dur] 40 meq PO DAILY 03/23/18 Sucralfate [Carafate] 1 gm PO 4X/DAY PRN PRN 03/23/18 Lipase/Protease/Amylase [Creon Dr 36,000 unit PO TIDCM 03/25/18 36,000 Units Capsule] Past Medical History (Chronic Problems): Chronic Problems Pancreas cancer (Chronic) Hypertension (Chronic) Surgical History: - - Coronary artery stent placement ?5, Whipple's procedure Psychiatric History: No pertinent psych hx - *Family History Maternal History Items: Hypertension Paternal History Items: No pertinent history Lives: Spouse/ Significant Other Smoking Status: Former smoker Tobacco Use: Non-smoker Alcohol: None Drugs: None Review of Systems - Review of Systems General: Denies: Fever, Night Sweats, Fatigue Cardiovascular: Denies: Chest Discomfort, Shortness of Breath, Orthopnea, PND, Peripheral Edema, Palpitations, Lightheadedness, Dizziness, Near Syncope, Syncope Respiratory: Denies: Cough, Sputum Production, Hemoptysis Gastrointestinal: Denies: Hematemesis, Hematochezia, Melena Genitourinary: Denies: Dysuria, Hematuria Skin: Denies: Rash Subjectve: Patient laying in bed, no acute distress. Objective: Vital Signs Temp Pulse Resp BP Pulse Ox 97.8 F 87 20 H 80/60 L 92 03/26/18 08:18 03/26/18 09:25 03/26/18 08:18 03/26/18 09:25 03/26/18 08:18 Oxygen Flow Rate (L/min) 2 Oxygen Delivery Method Room Air Weight: 161 lb 6.054 oz Body Mass Index (BMI) 25.3 Orthostatic Vital Signs Start: 03/25/18 15:27 Freq: q24h Status: Active Protocol: Activity Type Activity Date Activity User E-Sign Co-Sign Detail Recorded Client Recorded Date Recorded By Document 03/26/18 05:50 HAILEY [id number] 03/26/18 05:56 JC 03/26/18 05:50 Orthostatic Vitals Standing -Blood Pressure (90/60-120/80) 95/65 -Extremity Use Left Arm -Pulse Rate (60-100) 93 Sitting -Blood Pressure (90/60-120/80) 107/73 -Extremity Use Left Arm -Pulse Rate (60-100) 84 Lying -Blood Pressure (90/60-120/80) 108/75 -Extremity Use Left Arm -Pulse Rate (60-100) 81 Intake and Output for Last 24 Hours 03/24/18 03/25/18 03/26/18 23:59 23:59 23:59 Intake Total 5691 / 5691 5357 / 5357 1171 / 1171 Output Total 1150 / 1150 200 / 200 Balance 4541 / 4541 5357 / 5357 971 / 971 General: Awake, Alert, Oriented x 3 HEENT: PERRL, EOMI, Sclera Non Icteric Neck: Supple, Good ROM, No Lymph Node Enlargement Lungs: Clear to auscultation Cardiovascular: Regular Rhythm, Normal S1, Normal S2, No Murmurs, No Rubs, No Gallops Vascular: No Carotid Bruits, Normal Femoral Pulses, Normal Radial Pulses, Normal Dorsalis Pedal Pulse, Normal Posterior Tibial Pulses Abdomen: Bowel Sounds Present, Soft, Non Tender, No HSM, No Organomegaly Extremities: No Cyanosis, No Clubbing, No edema Neurological: No Focal Motor or Sensory Deficit 03/26/18 05:25: WBC 3.1 L, RBC 3.14 L, Hgb 9.4 L, Hct 28.3 L, MCV 90.1, MCH 29.9, MCHC 33.2, RDW 21.9 H, RDW Differential 69.2 H, Plt Count 77 L, MPV 11.2, Immature Gran % (Auto) 0.600, Neut % (Auto) 76.3 H, Lymph % (Auto) 18.6 L, Divide % (Auto) 4.2, Eos % (Auto) 0.3, Baso % (Auto) 0.0, Absolute Neuts (auto) 2.4, Total Counted Not Reportable 03/26/18 05:25: Sodium 135 L, Potassium 4.0, Chloride 105, Carbon Dioxide 22.0, Anion Gap 8, BUN 9, Creatinine 0.48 L, Est GFR (MDRD) Af Amer 226, Est GFR (MDRD) Non-Af 187, BUN/Creatinine Ratio 18.6, Glucose 168 H, Calcium 6.7 L 03/26/18 09:13: Troponin I < 0.015 Rhythm: EKG: Normal sinus rhythm after adenosine, no acute changes. ECHO: Pending Stress Test: Cardiac Cath: PCI: CT Surgery: Holter monitor: EPS: PPM: CXR: Chest CT Scan: Assessment/Plan 1. Supraventricular tachycardia: Patient has developed several episodes of supraventricular tachycardia possibly result of his pericardial effusion as well as his constellation of medical problems including his recent admission for constipation. Patient has broken with IV adenosine 6 mg ?1 and reverted back to normal sinus rhythm. He is asymptomatic at this time. I recommend that he continue his Plavix and have aspirin 81 mg p.o. daily added, that we obtain a 2D echo with Doppler tomorrow to assess his LV function, valvular status and pericardial effusion as noted on his CT scan. If his troponins are abnormal, he may require a repeat diagnostic coronary angiogram and possible intervention. In order to better evaluate his coronary history I recommended we obtain his old cardiac history from his primary insurance legal assistant in [place]. He supposedly has 5 stents although he also has GI stents as well and he may be getting these confused. I reviewed his CT scan which suggests he has coronary stents in his left circumflex territory. In the meantime we will discontinue his Coreg given his hypotension and switch him to Lopressor 25 mg p.o. twice daily assuming his blood pressure can tolerate it. Would hold off on IV amiodarone drip at this time as he is reverted back to normal sinus rhythm with IV adenosine therapy. Patient may require additional IV adenosine therapy going forward during his hospital stay. If his troponins are negative, he may require a non-walking nuclear stress test to assess for possible areas of ischemia. If his stress test is grossly abnormal he may require diagnostic coronary angiogram. In addition the patient was on 60 mEq of potassium a day as an outpatient as well as 500 mg of magnesium oxide as well. Recommend restarting these agents to avoid recurrent arrhythmias. 2. Hyperlipidemia: Patient's AST and ALT are normal, not sure why he is not on a statin. Will await the records to determine if he has tried this before. 3. Discussed with Dr. Diane. Thank you very much for the opportunity to participate in the cardiac care of your patient. Consultation time took place between 8 AM and 8:30 AM. Code Visit Inpatient E&M: 39021 Init Hosp L3
--- NOTE | 2018-03-26 10:08 | CON.PCM_ITS ---
Problem List (1) Coronary artery disease Status: Acute (2) Hypertension Status: Chronic (3) Hypercholesterolemia Status: Acute (4) Supraventricular tachycardia Status: Acute Reason for Consult Date of Consultation: 03/26/18 Reason for Consultation: Supraventricular tachycardia, coronary artery disease, hypertension, hypercholesterolemia History of Present Illness: The patient is a 58 year old diabetic m who is status post pancreatic cancer diagnosis status post Whipple procedure followed by Billroth surgery about 2 years ago. He also has a history of coronary artery disease status post 5 stents at an outside facility in [place]. His last heart catheterization and stenting took place about 2 years ago in [place]. He does not follow-up with a ceramics teacher locally. Patient was admitted with several day history of worsening pain was found to be constipated. In addition a CT scan of his chest and abdomen demonstrated ascites, bilateral pleural effusions, and suspicion for pericardial effusion. Patient was given a cathartic solution, and his constipation has markedly improved. Subsequent to this the patient developed several episodes of supraventricular tachycardia for which he received IV Lopressor therapy which corrected. A second episode last night self corrected, and a third one this morning lasting approximately 1 hour did not self-correct. Patient's blood pressure decreased into the 80s, and he was transferred to the ICU for PCU status care. Patient was completely unaware of his SVT and at no time developed chest pain, angina, shortness of breath or dyspnea. Patient was treated with IV adenosine 6 mg ?1 under my supervision which converted him from supraventricular tachycardia to normal sinus rhythm. Patient is on chronic Plavix therapy but not baby aspirin. [] Past Medical History Allergies/Adverse Reactions: Allergies No Known Allergies Allergy (Verified 03/23/18 13:03) Home Medications: Ambulatory Orders Medication Instructions Recorded Clopidogrel Bisulfate [Plavix] 75 mg PO DAILY 09/18/16 Hydrocodone Bitart/Apap 5-325 1 - 2 tablet PO Q6H PRN PRN #20 09/18/16 [[place] 5/325] tablet Insulin Glargine [Lantus (BKC)] 25 units SC QHS 09/18/16 Ondansetron [Zofran Odt] 4 mg PO Q8H PRN PRN #10 tablet 09/18/16 Rosuvastatin Calcium [Crestor] 40 mg PO DAILY 09/18/16 Tamsulosin HCl [Flomax] 0.4 mg PO QHS 09/18/16 Insulin Lispro [Humalog] 8 - 20 unit SC TIDCM 03/23/18 Magnesium 500 mg PO DAILY 03/23/18 Pantoprazole Sodium [Protonix] 40 mg PO DAILY 03/23/18 Potassium Chloride [K-Dur] 20 meq PO DINNER 03/23/18 Potassium Chloride [K-Dur] 40 meq PO DAILY 03/23/18 Sucralfate [Carafate] 1 gm PO 4X/DAY PRN PRN 03/23/18 Lipase/Protease/Amylase [Creon Dr 36,000 unit PO TIDCM 03/25/18 36,000 Units Capsule] Past Medical History (Chronic Problems): Chronic Problems Pancreas cancer (Chronic) Hypertension (Chronic) Surgical History: - - Coronary artery stent placement ?5, Whipple's procedure Psychiatric History: No pertinent psych hx - *Family History Maternal History Items: Hypertension Paternal History Items: No pertinent history Lives: Spouse/ Significant Other Smoking Status: Former smoker Tobacco Use: Non-smoker Alcohol: None Drugs: None Review of Systems - Review of Systems General: Denies: Fever, Night Sweats, Fatigue Cardiovascular: Denies: Chest Discomfort, Shortness of Breath, Orthopnea, PND, Peripheral Edema, Palpitations, Lightheadedness, Dizziness, Near Syncope, Syncope Respiratory: Denies: Cough, Sputum Production, Hemoptysis Gastrointestinal: Denies: Hematemesis, Hematochezia, Melena Genitourinary: Denies: Dysuria, Hematuria Skin: Denies: Rash Subjectve: Patient laying in bed, no acute distress. Objective: Vital Signs Temp Pulse Resp BP Pulse Ox 97.8 F 87 20 H 80/60 L 92 03/26/18 08:18 03/26/18 09:25 03/26/18 08:18 03/26/18 09:25 03/26/18 08:18 Oxygen Flow Rate (L/min) 2 Oxygen Delivery Method Room Air Weight: 161 lb 6.054 oz Body Mass Index (BMI) 25.3 Orthostatic Vital Signs Start: 03/25/18 15:27 Freq: q24h Status: Active Protocol: Activity Type Activity Date Activity User E-Sign Co-Sign Detail Recorded Client Recorded Date Recorded By Document 03/26/18 05:50 [email or web address] [id number] 03/26/18 05:56 JC 03/26/18 05:50 Orthostatic Vitals Standing -Blood Pressure (90/60-120/80) 95/65 -Extremity Use Left Arm -Pulse Rate (60-100) 93 Sitting -Blood Pressure (90/60-120/80) 107/73 -Extremity Use Left Arm -Pulse Rate (60-100) 84 Lying -Blood Pressure (90/60-120/80) 108/75 -Extremity Use Left Arm -Pulse Rate (60-100) 81 Intake and Output for Last 24 Hours 03/24/18 03/25/18 03/26/18 23:59 23:59 23:59 Intake Total 5691 / 5691 5357 / 5357 1171 / 1171 Output Total 1150 / 1150 200 / 200 Balance 4541 / 4541 5357 / 5357 971 / 971 General: Awake, Alert, Oriented x 3 HEENT: PERRL, EOMI, Sclera Non Icteric Neck: Supple, Good ROM, No Lymph Node Enlargement Lungs: Clear to auscultation Cardiovascular: Regular Rhythm, Normal S1, Normal S2, No Murmurs, No Rubs, No Gallops Vascular: No Carotid Bruits, Normal Femoral Pulses, Normal Radial Pulses, Normal Dorsalis Pedal Pulse, Normal Posterior Tibial Pulses Abdomen: Bowel Sounds Present, Soft, Non Tender, No HSM, No Organomegaly Extremities: No Cyanosis, No Clubbing, No edema Neurological: No Focal Motor or Sensory Deficit 03/26/18 05:25: WBC 3.1 L, RBC 3.14 L, Hgb 9.4 L, Hct 28.3 L, MCV 90.1, MCH 29.9 , MCHC 33.2, RDW 21.9 H, RDW Differential 69.2 H, Plt Count 77 L, MPV 11.2, Immature Gran % (Auto) 0.600, Neut % (Auto) 76.3 H, Lymph % (Auto) 18.6 L, [place] % (Auto) 4.2, Eos % (Auto) 0.3, Baso % (Auto) 0.0, Absolute Neuts (auto) 2.4, Total Counted Not Reportable 03/26/18 05:25: Sodium 135 L, Potassium 4.0, Chloride 105, Carbon Dioxide 22.0, Anion Gap 8, BUN 9, Creatinine 0.48 L, Est GFR (MDRD) Af Amer 226, Est GFR (MDRD ) Non-Af 187, BUN/Creatinine Ratio 18.6, Glucose 168 H, Calcium 6.7 L 03/26/18 09:13: Troponin I < 0.015 Rhythm: EKG: Normal sinus rhythm after adenosine, no acute changes. ECHO: Pending Stress Test: Cardiac Cath: PCI: CT Surgery: Holter monitor: EPS: PPM: CXR: Chest CT Scan: Assessment/Plan 1. Supraventricular tachycardia: Patient has developed several episodes of supraventricular tachycardia possibly result of his pericardial effusion as well as his constellation of medical problems including his recent admission for constipation. Patient has broken with IV adenosine 6 mg ?1 and reverted back to normal sinus rhythm. He is asymptomatic at this time. I recommend that he continue his Plavix and have aspirin 81 mg p.o. daily added , that we obtain a 2D echo with Doppler tomorrow to assess his LV function, valvular status and pericardial effusion as noted on his CT scan. If his troponins are abnormal, he may require a repeat diagnostic coronary angiogram and possible intervention. In order to better evaluate his coronary history I recommended we obtain his old cardiac history from his primary ceramics teacher in [place]. He supposedly has 5 stents although he also has GI stents as well and he may be getting these confused. I reviewed his CT scan which suggests he has coronary stents in his left circumflex territory. In the meantime we will discontinue his Coreg given his hypotension and switch him to Lopressor 25 mg p.o. twice daily assuming his blood pressure can tolerate it. Would hold off on IV amiodarone drip at this time as he is reverted back to normal sinus rhythm with IV adenosine therapy. Patient may require additional IV adenosine therapy going forward during his hospital stay. If his troponins are negative, he may require a non-walking nuclear stress test to assess for possible areas of ischemia. If his stress test is grossly abnormal he may require diagnostic coronary angiogram. In addition the patient was on 60 mEq of potassium a day as an outpatient as well as 500 mg of magnesium oxide as well. Recommend restarting these agents to avoid recurrent arrhythmias. 2. Hyperlipidemia: Patient's AST and ALT are normal, not sure why he is not on a statin. Will await the records to determine if he has tried this before. 3. Discussed with Dr. Diane. Thank you very much for the opportunity to participate in the cardiac care of your patient. Consultation time took place between 8 AM and 8:30 AM. Code Visit Inpatient E&M: 66730 Init Hosp L3
[2018-03-26 10:11] LABS: Magnesium 1.9 mg/dL (1.6-2.6)
[2018-03-26 10:34] LABS: M R Staph aureus DNA By PCR Negative (Negative); Probe Check PASS; Specimen Processing Control PASS
[2018-03-26] MEDS: Aspirin 81 MG TAB.CHEW PO (12:59)
[2018-03-26 18:20] LABS: Bedside Glucose 170 mg/dL (70-110)
--- NOTE | 2018-03-26 19:25 | NURSING ---
Juan RN received orders per Dr. Eng to push Adenosine 6mg IV x1 with hospitalist at bedside. Dr. Huston arrived to bedside immediately after request. Medication given. Pt tolerated well. Pt now in NSR. Will continue to monitor this shift.
[2018-03-26 19:31] LABS: Bedside Glucose 159 mg/dL (70-110)
[2018-03-26] MEDS: Tamsulosin HCl 0.4 MG Capsule PO (21:52)
[2018-03-26] MEDS: ALPRAZolam 0.5 MG Tablet PO (23:35)
[2018-03-27] VITALS (18 sets, daily range): BP systolic 80–105; BP diastolic 56–86; PULSE 64–98; RESP 12–22; TEMP 36.7–36.9; O2SAT 71–98
[2018-03-27 00:46] LABS: Bedside Glucose 156 mg/dL (70-110)
[2018-03-27] MEDS: 0.9% Normal Saline 1,000 ML 150 ML IV ×2 (05:32→12:26)
[2018-03-27] MEDS: Insulin Lispro 100 UNIT/ML INSULN.PEN SC ×2 (05:32→12:25)
[2018-03-27 07:05] LABS: Bedside Glucose 154 mg/dL (70-110)
[2018-03-27 07:19] LABS: Absolute Lymphocyte Count 0.63 X10^3/ul (0.83-4.51); Absolute Neutrophil Count 1.7 X10^3/uL (2.0-7.7); Eosinophil# 0.02 X10^3/uL; Eosinophils% 0.8 % (0-5); Hematocrit 24.4 % (40-54); Lymphocyte # 0.63 X10^3/ul (4.0); Lymphocyte % 25.2 % (19-41); Mean Corp Hgb Conc 32.8 g/gl (32-36); Mean Corpuscular Hgb 29.5 pg (27.0-32.0); Monocyte# 0.12 X10^3/uL; Monocyte% 4.8 % (0-10); Neutrophil # 1.71 X10^3/uL (2.7-7.7); Neutrophil % 68.4 % (47-70); Platelet Count 54 K/mm3 (150-450); RBC Distribution Width CV 22.1 % (11.6-14.6); RBC Distribution Width SD 73.1 fl (35.1-43.9); Red Blood Count 2.71 M/mm3 (4.6-6.2); White Blood Count 2.5 K/mm3 (4.4-11.0)
[2018-03-27 07:23] LABS: Anion Gap 8 (5-15); BUN 9 mg/dL (7-18); BUN/Creat Ratio 26.7 RATIO (10-20); Calcium,Total 6.6 mg/dL (8.5-10.1); Chloride 108 mmol/L (98-107); Creatinine, Serum 0.34 mg/dL (0.70-1.30); EST Glomerular Filtration Rate 284 mL/min (>60); Est Glom Filt Rate - Afr Amer 344 mL/min (>60); Estimated Creatinine Clearance 216.01 ml/min; Glucose 158 mg/dL (74-106); Potassium 3.3 mmol/L (3.5-5.1); Sodium Level 138 mmol/L (136-145)
[2018-03-27 07:36] LABS: Differential Indicated SCAN CRITERIA MET; POSITIVE COUNT NO; POSITIVE DIFFERENTIAL NO; POSITIVE MORPHOLOGY YES
--- NOTE | 2018-03-27 09:09 | PCM.PN.CARD ---
Subjectve: Patient doing well this morning, feels much better, and had another episode of SVT last evening requiring an additional 6 mill grams of IV adenosine which broke to normal sinus rhythm. Patient does have orthostatic hypotension this morning. Hemoglobin is 8.4. Objective: Vital Signs Temp Pulse Resp BP Pulse Ox 98.1 F 86 18 105/56 L 93 03/27/18 06:00 03/27/18 07:38 03/27/18 06:00 03/27/18 07:38 03/27/18 06:45 Oxygen Flow Rate (L/min) 2 Oxygen Delivery Method Nasal Cannula Weight: 180 lb 1.883 oz Body Mass Index (BMI) 25.3 Orthostatic Vital Signs Start: 03/25/18 15:27 Freq: q24h Status: Active Protocol: Activity Type Activity Date Activity User E-Sign Co-Sign Detail Recorded Client Recorded Date Recorded By Document 03/27/18 07:38 LW [id number] 03/27/18 07:40 LW 03/27/18 07:38 Orthostatic Vitals Standing -Blood Pressure (90/60-120/80) 80/63 L -Extremity Use Right Arm -Pulse Rate (60-100) 98 Sitting -Blood Pressure (90/60-120/80) 94/71 -Extremity Use Right Arm -Pulse Rate (60-100) 86 Lying -Blood Pressure (90/60-120/80) 105/56 L -Extremity Use Right Arm -Pulse Rate (60-100) 86 Intake and Output for Last 24 Hours 03/25/18 03/26/18 03/27/18 23:59 23:59 23:59 Intake Total 5357 / 5357 4202 / 4202 1324 / 1324 Output Total 200 / 200 Balance 5357 / 5357 4002 / 4002 1324 / 1324 General: Awake, Alert, Oriented x 3 HEENT: PERRL, EOMI, Sclera Non Icteric Neck: Supple, Good ROM, No Lymph Node Enlargement Lungs: Clear to auscultation Cardiovascular: Regular Rhythm, Normal S1, Normal S2, No Murmurs, No Rubs, No Gallops Vascular: No Carotid Bruits, Normal Femoral Pulses, Normal Radial Pulses, Normal Dorsalis Pedal Pulse, Normal Posterior Tibial Pulses Abdomen: Bowel Sounds Present, Soft, Non Tender, No HSM, No Organomegaly Extremities: No Cyanosis, No Clubbing, No edema Neurological: No Focal Motor or Sensory Deficit 03/26/18 09:13: Troponin I < 0.015 03/26/18 09:13: Magnesium 1.9 03/26/18 11:55: Troponin I 0.020 03/26/18 18:00: Troponin I 0.016 03/27/18 05:45: WBC 2.5 L, RBC 2.71 L, Hgb 8.0 L, Hct 24.4 L, MCV 90.0, MCH 29.5, MCHC 32.8, RDW 22.1 H, RDW Differential 73.1 H, Plt Count 54 L, Immature Gran % (Auto) 0.800, Neut % (Auto) 68.4, Lymph % (Auto) 25.2, [place] % (Auto) 4.8, Eos % (Auto) 0.8, Baso % (Auto) 0.0, Absolute Neuts (auto) 1.7 L, Total Counted Not Reportable 03/27/18 05:45: Sodium 138, Potassium 3.3 L, Chloride 108 H, Carbon Dioxide 22.0, Anion Gap 8, BUN 9, Creatinine 0.34 L, Est GFR (MDRD) Af Amer 344, Est GFR (MDRD) Non-Af 284, BUN/Creatinine Ratio 26.7 H, Glucose 158 H, Calcium 6.6 L Rhythm: EKG: ECHO: Pending Stress Test: Cardiac Cath: PCI: CT Surgery: Holter monitor: EPS: PPM: CXR: Chest CT Scan: Medical Necessity - Tobacco Use Smoking Status: Former smoker Tobacco Use: Non-smoker Assessment/Plan 1. Supraventricular tachycardia: Patient has developed several episodes of supraventricular tachycardia possibly result of his pericardial effusion as well as his constellation of medical problems including his recent admission for constipation. Patient has broken with IV adenosine 6 mg ?1 and reverted back to normal sinus rhythm. Patient had another episode of SVT last evening which required additional IV adenosine therapy. He is remained in sinus rhythm overnight. He is asymptomatic at this time. I recommend that he continue his Plavix and have aspirin 81 mg p.o. daily added, that we obtain a 2D echo with Doppler tomorrow to assess his LV function, valvular status and pericardial effusion as noted on his CT scan. Patient's troponins are negative, so we will hold off on diagnostic coronary angiogram at this time. In order to better evaluate his coronary history I recommended we obtain his old cardiac history from his primary pallet repairer in [place]. He supposedly has 5 stents although he also has GI stents as well and he may be getting these confused. I reviewed his CT scan which suggests he has coronary stents in his left circumflex territory. In the meantime we will discontinue his Coreg given his hypotension and switch him to Lopressor 25 mg p.o. twice daily assuming his blood pressure can tolerate it. Would hold off on IV amiodarone drip at this time as he is reverted back to normal sinus rhythm with IV adenosine therapy. Patient may require additional IV adenosine therapy going forward during his hospital stay. If his troponins are negative, he may require a non-walking nuclear stress test to assess for possible areas of ischemia. If his stress test is grossly abnormal he may require diagnostic coronary angiogram. Depending upon echocardiogram will determine whether he requires digoxin for SVT control. In addition the patient was on 60 mEq of potassium a day as an outpatient as well as 500 mg of magnesium oxide as well. Recommend restarting these agents to avoid recurrent arrhythmias. 2. Hyperlipidemia: Patient's AST and ALT are normal, not sure why he is not on a statin. Will await the records to determine if he has tried this before. 3. Discussed with Dr. Diane. Thank you very much for the opportunity to participate in the cardiac care of your patient. Consultation time took place between 8 AM and 8:30 AM. Code Visit Inpatient E&M: 79053 Subs Hosp L2
--- NOTE | 2018-03-27 09:13 | PN.CARD_ITS ---
Subjectve: Patient doing well this morning, feels much better, and had another episode of SVT last evening requiring an additional 6 mill grams of IV adenosine which broke to normal sinus rhythm. Patient does have orthostatic hypotension this morning. Hemoglobin is 8.4. Objective: Vital Signs Temp Pulse Resp BP Pulse Ox 98.1 F 86 18 105/56 L 93 03/27/18 06:00 03/27/18 07:38 03/27/18 06:00 03/27/18 07:38 03/27/18 06:45 Oxygen Flow Rate (L/min) 2 Oxygen Delivery Method Nasal Cannula Weight: 180 lb 1.883 oz Body Mass Index (BMI) 25.3 Orthostatic Vital Signs Start: 03/25/18 15:27 Freq: q24h Status: Active Protocol: Activity Type Activity Date Activity User E-Sign Co-Sign Detail Recorded Client Recorded Date Recorded By Document 03/27/18 07:38 LW [id number] 03/27/18 07:40 LW 03/27/18 07:38 Orthostatic Vitals Standing -Blood Pressure (90/60-120/80) 80/63 L -Extremity Use Right Arm -Pulse Rate (60-100) 98 Sitting -Blood Pressure (90/60-120/80) 94/71 -Extremity Use Right Arm -Pulse Rate (60-100) 86 Lying -Blood Pressure (90/60-120/80) 105/56 L -Extremity Use Right Arm -Pulse Rate (60-100) 86 Intake and Output for Last 24 Hours 03/25/18 03/26/18 03/27/18 23:59 23:59 23:59 Intake Total 5357 / 5357 4202 / 4202 1324 / 1324 Output Total 200 / 200 Balance 5357 / 5357 4002 / 4002 1324 / 1324 General: Awake, Alert, Oriented x 3 HEENT: PERRL, EOMI, Sclera Non Icteric Neck: Supple, Good ROM, No Lymph Node Enlargement Lungs: Clear to auscultation Cardiovascular: Regular Rhythm, Normal S1, Normal S2, No Murmurs, No Rubs, No Gallops Vascular: No Carotid Bruits, Normal Femoral Pulses, Normal Radial Pulses, Normal Dorsalis Pedal Pulse, Normal Posterior Tibial Pulses Abdomen: Bowel Sounds Present, Soft, Non Tender, No HSM, No Organomegaly Extremities: No Cyanosis, No Clubbing, No edema Neurological: No Focal Motor or Sensory Deficit 03/26/18 09:13: Troponin I < 0.015 03/26/18 09:13: Magnesium 1.9 03/26/18 11:55: Troponin I 0.020 03/26/18 18:00: Troponin I 0.016 03/27/18 05:45: WBC 2.5 L, RBC 2.71 L, Hgb 8.0 L, Hct 24.4 L, MCV 90.0, MCH 29.5 , MCHC 32.8, RDW 22.1 H, RDW Differential 73.1 H, Plt Count 54 L, Immature Gran % (Auto) 0.800, Neut % (Auto) 68.4, Lymph % (Auto) 25.2, [place] % (Auto) 4.8, Eos % (Auto) 0.8, Baso % (Auto) 0.0, Absolute Neuts (auto) 1.7 L, Total Counted Not Reportable 03/27/18 05:45: Sodium 138, Potassium 3.3 L, Chloride 108 H, Carbon Dioxide 22.0 , Anion Gap 8, BUN 9, Creatinine 0.34 L, Est GFR (MDRD) Af Amer 344, Est GFR ( MDRD) Non-Af 284, BUN/Creatinine Ratio 26.7 H, Glucose 158 H, Calcium 6.6 L Rhythm: EKG: ECHO: Pending Stress Test: Cardiac Cath: PCI: CT Surgery: Holter monitor: EPS: PPM: CXR: Chest CT Scan: Medical Necessity - Tobacco Use Smoking Status: Former smoker Tobacco Use: Non-smoker Assessment/Plan 1. Supraventricular tachycardia: Patient has developed several episodes of supraventricular tachycardia possibly result of his pericardial effusion as well as his constellation of medical problems including his recent admission for constipation. Patient has broken with IV adenosine 6 mg ?1 and reverted back to normal sinus rhythm. Patient had another episode of SVT last evening which required additional IV adenosine therapy. He is remained in sinus rhythm overnight. He is asymptomatic at this time. I recommend that he continue his Plavix and have aspirin 81 mg p.o. daily added , that we obtain a 2D echo with Doppler tomorrow to assess his LV function, valvular status and pericardial effusion as noted on his CT scan. Patient's troponins are negative, so we will hold off on diagnostic coronary angiogram at this time. In order to better evaluate his coronary history I recommended we obtain his old cardiac history from his primary cloth bleaching range tender in [place]. He supposedly has 5 stents although he also has GI stents as well and he may be getting these confused. I reviewed his CT scan which suggests he has coronary stents in his left circumflex territory. In the meantime we will discontinue his Coreg given his hypotension and switch him to Lopressor 25 mg p.o. twice daily assuming his blood pressure can tolerate it. Would hold off on IV amiodarone drip at this time as he is reverted back to normal sinus rhythm with IV adenosine therapy. Patient may require additional IV adenosine therapy going forward during his hospital stay. If his troponins are negative, he may require a non-walking nuclear stress test to assess for possible areas of ischemia. If his stress test is grossly abnormal he may require diagnostic coronary angiogram. Depending upon echocardiogram will determine whether he requires digoxin for SVT control. In addition the patient was on 60 mEq of potassium a day as an outpatient as well as 500 mg of magnesium oxide as well. Recommend restarting these agents to avoid recurrent arrhythmias. 2. Hyperlipidemia: Patient's AST and ALT are normal, not sure why he is not on a statin. Will await the records to determine if he has tried this before. 3. Discussed with Dr. Diane. Thank you very much for the opportunity to participate in the cardiac care of your patient. Consultation time took place between 8 AM and 8:30 AM. Code Visit Inpatient E&M: 40031 Subs Hosp L2
[2018-03-27] MEDS: Pantoprazole Sodium 40 MG Tablet PO ×2 (10:31→21:44)
[2018-03-27] MEDS: Aspirin 81 MG TAB.CHEW PO (10:31)
[2018-03-27] MEDS: Metoprolol Tartrate 25 MG Tablet PO ×2 (10:32→21:44)
[2018-03-27] MEDS: Magnesium Oxide 400 MG Tablet PO (10:32)
[2018-03-27 12:25] LABS: Bedside Glucose 159 mg/dL (70-110)
[2018-03-27] MEDS: Clopidogrel Bisulfate 75 MG Tablet PO (12:26)
--- NOTE | 2018-03-27 14:45 | CHAPLAIN ---
Type of Pastoral Visit ___ Initial Visit _x__ Follow-up Visit ___ On-call Visit ___ General Patient Visit ___ Spiritual Assessment ___ Family Conference ___ Bereavement ___ Rapid Response ___ Code Blue ___ Other (describe below) Pastoral Care Referral From _x__ Patient ___ Family ___ Nurse ___ Physician ___ Penology Professor ___ Senior [employer] Net Developer ___ Other (describe below) Sacrament/Intervention _x__ Active listening ___ Anointing ___ Uatsdin ___ Bereavement ___ Communion _x__ Jaja exploration ___ _x__ Life review _x__ Prayer ___ Reconciliation ___ Sacrament of Sick _x__ Supportive presence ___ Wedding ___ Other (describe below) Pastoral Comments patient was moved to ICU from [place]; pt had requested spiritual care support; pt appears weaker but still very much hopeful of going home soon; pt speaks of gratitude for everyone who is giving care and adding to his support; pt speaks of accepting whatever is in God's plan; pt goal though is definitely to go home and be active
[2018-03-27 17:36] LABS: Bedside Glucose 142 mg/dL (70-110)
--- NOTE | 2018-03-27 18:42 | PCM.PROGNOTE ---
Subjective: Patient was seen and examined today-no more episodes of SVT today. Echo shows preserved EF, mild pulmonary hypertension. - Physical Exam General: Alert, Oriented x3, Cooperative HEENT: Atraumatic, PERRLA, EOMI, Normocephalic Oral: Moist Mucosa Neck: Supple, No JVD, No Nuchal Rigidity, Trachea Midline, Thyroid Normal Size and Texture Lungs: Clear to auscultation, Normal air movement, No rhonchi, No wheeze, No rales Cardiovascular: Regular rate, Regular Rhythm, Normal S1, Normal S2, No murmurs, No Ectopic Activity Abdomen: Bowel Sounds Present, Soft, Non-Distended, No hernias noted Extremities: No clubbing, No cyanosis, No edema, Capillary Refill Less than 3 Seconds Skin: No rashes, No breakdown Neurological: Cranial nerves II-XII grossly intact, Neuro grossly intact, Sensory exam intact to light touch and pain, Coordination normal Psych/Mental Status: Normal Affect, Appropriate, Alert and oriented to time, place, person, mood and affect Vital Signs Temp Pulse Resp BP Pulse Ox 98.4 F 64 16 92/59 L 98 03/27/18 17:57 03/27/18 17:57 03/27/18 17:57 03/27/18 17:57 03/27/18 17:57 Oxygen Flow Rate (L/min) 4 Oxygen Delivery Method Room Air Weight: 81.7 kg Body Mass Index (BMI) 25.3 Orthostatic Vital Signs Start: 03/25/18 15:27 Freq: q24h Status: Active Protocol: Activity Type Activity Date Activity User E-Sign Co-Sign Detail Recorded Client Recorded Date Recorded By Document 03/27/18 07:38 LW [id number] 03/27/18 07:40 LW 03/27/18 07:38 Orthostatic Vitals Standing -Blood Pressure (90/60-120/80) 80/63 L -Extremity Use Right Arm -Pulse Rate (60-100) 98 Sitting -Blood Pressure (90/60-120/80) 94/71 -Extremity Use Right Arm -Pulse Rate (60-100) 86 Lying -Blood Pressure (90/60-120/80) 105/56 L -Extremity Use Right Arm -Pulse Rate (60-100) 86 Intake and Output for Last 24 Hours 03/25/18 03/26/18 03/27/18 23:59 23:59 23:59 Intake Total 5357 / 5357 4202 / 4202 3552 / 3552 Output Total 200 / 200 3 / 3 Balance 5357 / 5357 4002 / 4002 3549 / 3549 Laboratory Tests Past 24 Hrs 03/26/18 03/27/18 03/27/18 18:00 05:45 05:45 WBC 2.5 L RBC 2.71 L Hgb 8.0 L Hct 24.4 L MCV 90.0 MCH 29.5 MCHC 32.8 RDW 22.1 H RDW Differential 73.1 H Plt Count 54 L Immature Gran % (Auto) 0.800 Neut % (Auto) 68.4 Lymph % (Auto) 25.2 [place] % (Auto) 4.8 Eos % (Auto) 0.8 Baso % (Auto) 0.0 Absolute Neuts (auto) 1.7 L Absolute Lymphs (auto) 0.63 L Total Counted Not Reportable Differential Comment COMMENT Sodium 138 Potassium 3.3 L Chloride 108 H Carbon Dioxide 22.0 Anion Gap 8 BUN 9 Creatinine 0.34 L Estim Creat Clear Calc 216.01 Est GFR (MDRD) Af Amer 344 Est GFR (MDRD) Non-Af 284 BUN/Creatinine Ratio 26.7 H Glucose 158 H Calcium 6.6 L Troponin I 0.016 POC Glucose 03/27/18 03/27/18 03/27/18 17:30 12:19 05:30 POC Glucose 142 H 159 H 154 H 03/26/18 03/26/18 23:32 18:17 POC Glucose 156 H 159 H Medical Necessity - Tobacco Use Smoking Status: Former smoker Tobacco Use: Non-smoker Assessment/Plan All Active Problems Right sided abdominal pain (Acute) Coronary artery disease (Acute) Hypercholesterolemia (Acute) Supraventricular tachycardia (Acute) #1 right-sided abdominal pain-secondary to metastatic pancreatic cancer #2 supraventricular tachycardia-converted to sinus rhythm #3 metastatic pancreatic cancer #4 coronary artery disease-stable at this time #5 type 2 diabetes-patient's blood sugars will be monitored and sliding scale insulin will be given according to protocol #6 leukocytosis-secondary to Neulasta administration #7 anemia secondary to chronic disease (pancreatic cancer)/chemotherapy #8 hyperlipidemia #9 mild pulmonary hypertension Code Visit Inpatient E&M: 45425 Subs Hosp L2
[2018-03-27] MEDS: HYDROcodone Bitartrate/Apap 5/325 Tablet PO (21:42)
[2018-03-27] MEDS: 0.9% Normal Saline 1,000 ML 75 ML IV (21:42)
[2018-03-27] MEDS: Tamsulosin HCl 0.4 MG Capsule PO (21:44)
[2018-03-27] MEDS: ALPRAZolam 0.5 MG Tablet PO (21:47)
[2018-03-28] VITALS (8 sets, daily range): BP systolic 89–111; BP diastolic 63–71; PULSE 69–90; RESP 10–18; TEMP 36.7–36.9; O2SAT 94–97
[2018-03-28] MEDS: Insulin Lispro 100 UNIT/ML INSULN.PEN SC ×3 (00:06→11:38)
[2018-03-28 00:11] LABS: Bedside Glucose 173 mg/dL (70-110)
[2018-03-28 05:56] LABS: Bedside Glucose 201 mg/dL (70-110)
--- NOTE | 2018-03-28 07:00 | PCM.PN.SRG ---
Subjective: Miss note from 03/27- minimal right lower quadrant pain - Physical Exam General: Alert, Oriented x3, Cooperative Lungs: Clear to auscultation, Normal air movement Cardiovascular: Regular rate, Regular Rhythm Abdomen: Bowel Sounds Present, Soft, Tender - lower quadrant Vital Signs Temp Pulse Resp BP Pulse Ox 98.0 F 78 16 111/69 95 03/28/18 03:00 03/28/18 05:55 03/28/18 03:00 03/28/18 05:55 03/28/18 03:00 Oxygen Flow Rate (L/min) 4 Oxygen Delivery Method Room Air Weight: 82 kg Body Mass Index (BMI) 25.3 Orthostatic Vital Signs Start: 03/25/18 15:27 Freq: q24h Status: Active Protocol: Activity Type Activity Date Activity User E-Sign Co-Sign Detail Recorded Client Recorded Date Recorded By Document 03/28/18 05:55 DMM [id number] 03/28/18 05:57 DMM 03/28/18 05:55 Orthostatic Vitals Standing -Blood Pressure (90/60-120/80) 96/71 -Extremity Use Right Arm -Pulse Rate (60-100) 90 Sitting -Blood Pressure (90/60-120/80) 94/65 -Extremity Use Right Arm -Pulse Rate (60-100) 82 Lying -Blood Pressure (90/60-120/80) 111/69 -Extremity Use Right Arm -Pulse Rate (60-100) 78 Intake and Output for Last 24 Hours 03/26/18 03/27/18 03/28/18 23:59 23:59 23:59 Intake Total 4202 / 4202 3552 / 3552 884 / 884 Output Total 200 / 200 3 / 3 Balance 4002 / 4002 3549 / 3549 884 / 884 Laboratory Tests Past 24 Hrs 03/27/18 03/27/18 05:45 05:45 WBC 2.5 L RBC 2.71 L Hgb 8.0 L Hct 24.4 L MCV 90.0 MCH 29.5 MCHC 32.8 RDW 22.1 H RDW Differential 73.1 H Plt Count 54 L Immature Gran % (Auto) 0.800 Neut % (Auto) 68.4 Lymph % (Auto) 25.2 Powell % (Auto) 4.8 Eos % (Auto) 0.8 Baso % (Auto) 0.0 Absolute Neuts (auto) 1.7 L Absolute Lymphs (auto) 0.63 L Total Counted Not Reportable Differential Comment COMMENT Sodium 138 Potassium 3.3 L Chloride 108 H Carbon Dioxide 22.0 Anion Gap 8 BUN 9 Creatinine 0.34 L Estim Creat Clear Calc 216.01 Est GFR (MDRD) Af Amer 344 Est GFR (MDRD) Non-Af 284 BUN/Creatinine Ratio 26.7 H Glucose 158 H Calcium 6.6 L POC Glucose 03/28/18 03/28/18 03/27/18 05:37 00:02 17:30 POC Glucose 201 H 173 H 142 H 03/27/18 03/27/18 12:19 05:30 POC Glucose 159 H 154 H Medical Necessity - Tobacco Use Smoking Status: Former smoker Tobacco Use: Non-smoker Assessment/Plan All Active Problems Right sided abdominal pain (Acute) Coronary artery disease (Acute) Hypercholesterolemia (Acute) Supraventricular tachycardia (Acute) patient with advanced metastatic prostate cancer. Abdominal pain had resolved. Question whether partially related to constipation. patient was anticipating being discharged yesterday but yesterday and overnight had SVT up to her rate of 170. the patient was started on amiodarone and adenosine and then converted to a sinus rhythm. He was started on a beta sajan reviewed CT scan of abdomen and pelvis. Agree with bilateral small pleural effusions, ascites, feel abnormalities of the bowel in the right lower quadrant are likely carcinomatosis and studding. There is no signs of true obstruction. I am concerned that there appears to be pericardial effusion to me on the initial CT scan. This wasn't mentioned in the CT scan report and I did not feel this was likely significant but now that the patient has SVT and hypotension - discussed this with Dr. Eng. echocardiogram was obtained this morning. This demonstrated a recurring effusion, but was not felt to be significant in volume such that there was no compression of the right ventricle.
[2018-03-28] MEDS: Magnesium Oxide 400 MG Tablet PO (08:54)
[2018-03-28] MEDS: Metoprolol Tartrate 25 MG Tablet PO (08:55)
[2018-03-28] MEDS: Aspirin 81 MG TAB.CHEW PO (08:55)
[2018-03-28] MEDS: Clopidogrel Bisulfate 75 MG Tablet PO (08:56)
[2018-03-28] MEDS: Pantoprazole Sodium 40 MG Tablet PO (08:56)
[2018-03-28] MEDS: Glucerna Shake 120 ML LIQUID PO (08:58)
[2018-03-28 11:41] LABS: Bedside Glucose 187 mg/dL (70-110)
--- NOTE | 2018-03-28 12:10 | PCM.PN.CARD ---
Subjectve: Patient feeling much better. No further episodes of SVT. Taking and tolerating his medicines well. Telemetry showed normal sinus rhythm with PVC. Objective: Vital Signs Temp Pulse Resp BP Pulse Ox 98.4 F 78 18 96/71 97 03/28/18 09:00 03/28/18 11:43 03/28/18 09:00 03/28/18 09:00 03/28/18 09:00 Oxygen Flow Rate (L/min) 4 Oxygen Delivery Method Room Air Weight: 180 lb 12.465 oz Body Mass Index (BMI) 25.3 Orthostatic Vital Signs Start: 03/25/18 15:27 Freq: q24h Status: Active Protocol: Activity Type Activity Date Activity User E-Sign Co-Sign Detail Recorded Client Recorded Date Recorded By Document 03/28/18 05:55 NOEL [id number] 03/28/18 05:57 DMM 03/28/18 05:55 Orthostatic Vitals Standing -Blood Pressure (90/60-120/80) 96/71 -Extremity Use Right Arm -Pulse Rate (60-100) 90 Sitting -Blood Pressure (90/60-120/80) 94/65 -Extremity Use Right Arm -Pulse Rate (60-100) 82 Lying -Blood Pressure (90/60-120/80) 111/69 -Extremity Use Right Arm -Pulse Rate (60-100) 78 Intake and Output for Last 24 Hours 03/26/18 03/27/18 03/28/18 23:59 23:59 23:59 Intake Total 4202 / 4202 3552 / 3552 1509 / 1509 Output Total 200 / 200 3 / 3 Balance 4002 / 4002 3549 / 3549 1509 / 1509 General: Awake, Alert, Oriented x 3 HEENT: PERRL, EOMI, Sclera Non Icteric Neck: Supple, Good ROM, No Lymph Node Enlargement Lungs: Clear to auscultation Cardiovascular: Regular Rhythm, Normal S1, Normal S2, No Murmurs, No Rubs, No Gallops Vascular: No Carotid Bruits, Normal Femoral Pulses, Normal Radial Pulses, Normal Dorsalis Pedal Pulse, Normal Posterior Tibial Pulses Abdomen: Bowel Sounds Present, Soft, Non Tender, No HSM, No Organomegaly Extremities: No Cyanosis, No Clubbing, No edema Neurological: No Focal Motor or Sensory Deficit Rhythm: EKG: ECHO: Stress Test: Cardiac Cath: PCI: CT Surgery: Holter monitor: EPS: PPM: CXR: Chest CT Scan: Medical Necessity - Tobacco Use Smoking Status: Former smoker Tobacco Use: Non-smoker Assessment/Plan 1. Supraventricular tachycardia: Patient has developed several episodes of supraventricular tachycardia possibly result of his pericardial effusion as well as his constellation of medical problems including his recent admission for constipation. Patient has broken with IV adenosine 6 mg ?1 and reverted back to normal sinus rhythm. Patient had another episode of SVT on 03/26/18 which required additional IV adenosine therapy. He is remained in sinus rhythm overnight. He is asymptomatic at this time. He has had no further SVT for more than 24 hours. I recommend that he continue his Plavix and have aspirin 81 mg p.o. daily added, and echocardiogram yesterday showed intact LV function at 65%, RVSP of 37 mmHg, and trivial pericardial effusion, not materially impacting on cardiac performance no requiring pericardiocentesis at this time. Patient's troponins are negative, so we will hold off on diagnostic coronary angiogram at this time. In order to better evaluate his coronary history I recommended we obtain his old cardiac history from his primary radiology rn in [place]. He supposedly has 5 stents although he also has GI stents as well and he may be getting these confused. I reviewed his CT scan which suggests he has coronary stents in his left circumflex territory. In the meantime we will discontinue his Coreg given his hypotension and switch him to Lopressor 25 mg p.o. twice daily assuming his blood pressure can tolerate it. Would hold off on IV amiodarone drip at this time as he is reverted back to normal sinus rhythm with IV adenosine therapy. Patient may require additional IV adenosine therapy going forward during his hospital stay. If his troponins are negative, he may require a non-walking nuclear stress test as an outpatient to assess for possible areas of ischemia. If his stress test is grossly abnormal he may require diagnostic coronary angiogram. Depending upon echocardiogram will determine whether he requires digoxin for SVT control. In addition the patient was on 60 mEq of potassium a day as an outpatient as well as 500 mg of magnesium oxide as well. Recommend restarting these agents to avoid recurrent arrhythmias. 2. Hyperlipidemia: Patient's AST and ALT are normal, not sure why he is not on a statin. Will await the records to determine if he has tried this before. 3. Thank you very much for the opportunity to participate in the cardiac care of your patient. Patient may be discharged home if clinically okay. Code Visit Inpatient E&M: 70595 Subs Hosp L2
--- NOTE | 2018-03-28 12:14 | PN.CARD_ITS ---
Subjectve: Patient feeling much better. No further episodes of SVT. Taking and tolerating his medicines well. Telemetry showed normal sinus rhythm with PVC. Objective: Vital Signs Temp Pulse Resp BP Pulse Ox 98.4 F 78 18 96/71 97 03/28/18 09:00 03/28/18 11:43 03/28/18 09:00 03/28/18 09:00 03/28/18 09:00 Oxygen Flow Rate (L/min) 4 Oxygen Delivery Method Room Air Weight: 180 lb 12.465 oz Body Mass Index (BMI) 25.3 Orthostatic Vital Signs Start: 03/25/18 15:27 Freq: q24h Status: Active Protocol: Activity Type Activity Date Activity User E-Sign Co-Sign Detail Recorded Client Recorded Date Recorded By Document 03/28/18 05:55 NOEL [id number] 03/28/18 05:57 DMM 03/28/18 05:55 Orthostatic Vitals Standing -Blood Pressure (90/60-120/80) 96/71 -Extremity Use Right Arm -Pulse Rate (60-100) 90 Sitting -Blood Pressure (90/60-120/80) 94/65 -Extremity Use Right Arm -Pulse Rate (60-100) 82 Lying -Blood Pressure (90/60-120/80) 111/69 -Extremity Use Right Arm -Pulse Rate (60-100) 78 Intake and Output for Last 24 Hours 03/26/18 03/27/18 03/28/18 23:59 23:59 23:59 Intake Total 4202 / 4202 3552 / 3552 1509 / 1509 Output Total 200 / 200 3 / 3 Balance 4002 / 4002 3549 / 3549 1509 / 1509 General: Awake, Alert, Oriented x 3 HEENT: PERRL, EOMI, Sclera Non Icteric Neck: Supple, Good ROM, No Lymph Node Enlargement Lungs: Clear to auscultation Cardiovascular: Regular Rhythm, Normal S1, Normal S2, No Murmurs, No Rubs, No Gallops Vascular: No Carotid Bruits, Normal Femoral Pulses, Normal Radial Pulses, Normal Dorsalis Pedal Pulse, Normal Posterior Tibial Pulses Abdomen: Bowel Sounds Present, Soft, Non Tender, No HSM, No Organomegaly Extremities: No Cyanosis, No Clubbing, No edema Neurological: No Focal Motor or Sensory Deficit Rhythm: EKG: ECHO: Stress Test: Cardiac Cath: PCI: CT Surgery: Holter monitor: EPS: PPM: CXR: Chest CT Scan: Medical Necessity - Tobacco Use Smoking Status: Former smoker Tobacco Use: Non-smoker Assessment/Plan 1. Supraventricular tachycardia: Patient has developed several episodes of supraventricular tachycardia possibly result of his pericardial effusion as well as his constellation of medical problems including his recent admission for constipation. Patient has broken with IV adenosine 6 mg ?1 and reverted back to normal sinus rhythm. Patient had another episode of SVT on 03/26/18 which required additional IV adenosine therapy. He is remained in sinus rhythm overnight. He is asymptomatic at this time. He has had no further SVT for more than 24 hours. I recommend that he continue his Plavix and have aspirin 81 mg p.o. daily added , and echocardiogram yesterday showed intact LV function at 65%, RVSP of 37 mmHg , and trivial pericardial effusion, not materially impacting on cardiac performance no requiring pericardiocentesis at this time. Patient's troponins are negative, so we will hold off on diagnostic coronary angiogram at this time. In order to better evaluate his coronary history I recommended we obtain his old cardiac history from his primary referral nurse in [place]. He supposedly has 5 stents although he also has GI stents as well and he may be getting these confused. I reviewed his CT scan which suggests he has coronary stents in his left circumflex territory. In the meantime we will discontinue his Coreg given his hypotension and switch him to Lopressor 25 mg p.o. twice daily assuming his blood pressure can tolerate it. Would hold off on IV amiodarone drip at this time as he is reverted back to normal sinus rhythm with IV adenosine therapy. Patient may require additional IV adenosine therapy going forward during his hospital stay. If his troponins are negative, he may require a non-walking nuclear stress test as an outpatient to assess for possible areas of ischemia. If his stress test is grossly abnormal he may require diagnostic coronary angiogram. Depending upon echocardiogram will determine whether he requires digoxin for SVT control. In addition the patient was on 60 mEq of potassium a day as an outpatient as well as 500 mg of magnesium oxide as well. Recommend restarting these agents to avoid recurrent arrhythmias. 2. Hyperlipidemia: Patient's AST and ALT are normal, not sure why he is not on a statin. Will await the records to determine if he has tried this before. 3. Thank you very much for the opportunity to participate in the cardiac care of your patient. Patient may be discharged home if clinically okay. Code Visit Inpatient E&M: 74999 Subs Hosp L2
--- NOTE | 2018-03-28 14:09 | PCM.DC ---
- Discharge Diagnoses Current Active Problems: Current Active and Chronic Problems Right sided abdominal pain (Acute) Pancreas cancer (Chronic) Coronary artery disease (Acute) Hypertension (Chronic) Hypercholesterolemia (Acute) Supraventricular tachycardia (Acute) You will use the following diet at home:: No restrictions Your food should be the consistency of: Regular Your liquids should be the consistency of: Regular/Thin Discharge Activity: Return to Normal Activity Weight Bearing Status: Full weight bearing Allergies/Adverse Reactions: Allergies No Known Allergies Allergy (Verified 03/23/18 13:03) Medications to take at Discharge Clopidogrel Bisulfate [Plavix] 75 mg PO DAILY 09/18/16 Hydrocodone Bitart/Apap 5-325 [[place] 5/325] 1 - 2 tablet PO Q6H PRN PRN #20 tablet 09/18/16 Insulin Glargine [Lantus SoloStar Pen] 25 units SC QHS 09/18/16 Ondansetron [Zofran Odt] 4 mg PO Q8H PRN PRN #10 tablet 09/18/16 Rosuvastatin Calcium [Crestor] 40 mg PO DAILY 09/18/16 Tamsulosin HCl [Flomax] 0.4 mg PO QHS 09/18/16 Insulin Lispro [Humalog] 8 - 20 unit SC TIDCM 03/23/18 Magnesium 500 mg PO DAILY 03/23/18 Pantoprazole Sodium [Protonix] 40 mg PO DAILY 03/23/18 Potassium Chloride [K-Dur] 20 meq PO DINNER 03/23/18 Potassium Chloride [K-Dur] 40 meq PO DAILY 03/23/18 Lipase/Protease/Amylase [Creon Dr 36,000 Units Capsule] 36,000 unit PO TIDCM 03/25/18 Metoprolol Tartrate [Lopressor (beta sajan)] 25 mg PO BID #60 tab 03/28/18 The following prescriptions were given: Metoprolol Tartrate [Lopressor (beta sajan)] 25 mg PO BID #60 tab Primary Care Physician: Robert Cross MD [Primary Care Provider] - Please follow up with your Primary Care Physician in: in 2-3 weeks Test Results: Test results from this visit will be discussed in further detail at your follow-up appointment, if applicable. Please Follow Up With: Ozzie Blackman DO When: this week
--- NOTE | 2018-03-28 14:12 | DCINST_ITS ---
- Discharge Diagnoses Current Active Problems: Current Active and Chronic Problems Right sided abdominal pain (Acute) Pancreas cancer (Chronic) Coronary artery disease (Acute) Hypertension (Chronic) Hypercholesterolemia (Acute) Supraventricular tachycardia (Acute) You will use the following diet at home:: No restrictions Your food should be the consistency of: Regular Your liquids should be the consistency of: Regular/Thin Discharge Activity: Return to Normal Activity Weight Bearing Status: Full weight bearing Allergies/Adverse Reactions: Allergies No Known Allergies Allergy (Verified 03/23/18 13:03) Medications to take at Discharge Clopidogrel Bisulfate [Plavix] 75 mg PO DAILY 09/18/16 Hydrocodone Bitart/Apap 5-325 [[place] 5/325] 1 - 2 tablet PO Q6H PRN PRN #20 tablet 09/18/16 Insulin Glargine [Lantus SoloStar Pen] 25 units SC QHS 09/18/16 Ondansetron [Zofran Odt] 4 mg PO Q8H PRN PRN #10 tablet 09/18/16 Rosuvastatin Calcium [Crestor] 40 mg PO DAILY 09/18/16 Tamsulosin HCl [Flomax] 0.4 mg PO QHS 09/18/16 Insulin Lispro [Humalog] 8 - 20 unit SC TIDCM 03/23/18 Magnesium 500 mg PO DAILY 03/23/18 Pantoprazole Sodium [Protonix] 40 mg PO DAILY 03/23/18 Potassium Chloride [K-Dur] 20 meq PO DINNER 03/23/18 Potassium Chloride [K-Dur] 40 meq PO DAILY 03/23/18 Lipase/Protease/Amylase [Creon Dr 36,000 Units Capsule] 36,000 unit PO TIDCM Metoprolol Tartrate [Lopressor (beta sajan)] 25 mg PO BID #60 tab 03/28/18 The following prescriptions were given: Metoprolol Tartrate [Lopressor (beta sajan)] 25 mg PO BID #60 tab Primary Care Physician: Robert Cross MD [Primary Care Provider] - Please follow up with your Primary Care Physician in: in 2-3 weeks Test Results: Test results from this visit will be discussed in further detail at your follow- up appointment, if applicable. Please Follow Up With: Ozzie Blackman DO When: this week
--- NOTE | 2018-03-28 14:31 | NURSING ---
port deaccessed ,reviewed discharged orders voiced understanding, awaiting ride home
--- NOTE | 2018-03-28 19:31 | PCM.PN.SRG ---
Subjective: no complaints, hoping to go home today - Physical Exam General: Alert, Oriented x3 Lungs: Clear to auscultation, Normal air movement Cardiovascular: Regular rate, Regular Rhythm Abdomen: Bowel Sounds Present, Soft, Tender - right lower quadrant. Mild Vital Signs Temp Pulse Resp BP Pulse Ox 98.2 F 69 10 L 89/63 L 96 03/28/18 14:11 03/28/18 14:11 03/28/18 14:11 03/28/18 14:11 03/28/18 14:11 Oxygen Flow Rate (L/min) 4 Oxygen Delivery Method Room Air Weight: 82 kg Body Mass Index (BMI) 25.3 Intake and Output for Last 24 Hours 03/26/18 03/27/18 03/28/18 23:59 23:59 23:59 Intake Total 4202 / 4202 3552 / 3552 1509 / 1509 Output Total 200 / 200 3 / 3 Balance 4002 / 4002 3549 / 3549 1509 / 1509 POC Glucose 03/28/18 03/28/18 03/28/18 11:34 05:37 00:02 POC Glucose 187 H 201 H 173 H Medical Necessity - Tobacco Use Smoking Status: Former smoker Tobacco Use: Non-smoker Assessment/Plan All Active Problems Right sided abdominal pain (Acute) Coronary artery disease (Acute) Hypercholesterolemia (Acute) Supraventricular tachycardia (Acute) patient with advanced metastatic prostate cancer. Abdominal pain had resolved. Question whether partially related to constipation. patient was anticipating being discharged yesterday but yesterday and overnight had SVT up to her rate of 170. the patient was started on amiodarone and adenosine and then converted to a sinus rhythm. He was started on a beta sajan reviewed CT scan of abdomen and pelvis. Agree with bilateral small pleural effusions, ascites, feel abnormalities of the bowel in the right lower quadrant are likely carcinomatosis and studding. There is no signs of true obstruction. patient really is not a surgical candidate in any event. echocardiogram was obtained yesterday. This demonstrated a recurring effusion, but was not felt to be significant in volume such that there was no compression of the right ventricle. Dr. Eng comfortable with the patient's progress. I am comfortable with the patient being discharged to home.
--- NOTE | 2018-03-30 09:39 | PCM.DC.SUM ---
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 Workup in the emergency room included a CAT scan of the abdomen and pelvis and the patient was seen by general surgery. Patient was not felt to have a surgical abdomen and initially his abdominal pain was felt to be secondary to constipation, patient was admitted to [facility], given IV fluids, and IV pain medications and seen in consultation by oncology. Oncology was not sure that the patient had the abdominal pain from constipation and ileus or if it was from his metastatic pancreatic cancer. Patient's abdominal pain lessened during his hospitalization, he had to be placed in ICU due to an episode of supraventricular tachycardia and was seen by cardiology and placed on amiodarone. Patient converted to sinus rhythm. On 03/28/18, patient was seen and examined and felt to be in stable condition for discharge home Discharge Activity: Return to Normal Activity Weight Bearing Status: Full weight bearing Home Medications: Medications to take at Discharge Clopidogrel Bisulfate [Plavix] 75 mg PO DAILY 09/18/16 Hydrocodone Bitart/Apap 5-325 [[place] 5/325] 1 - 2 tablet PO Q6H PRN PRN #20 tablet 09/18/16 Insulin Glargine [Lantus SoloStar Pen] 25 units SC QHS 09/18/16 Ondansetron [Zofran Odt] 4 mg PO Q8H PRN PRN #10 tablet 09/18/16 Rosuvastatin Calcium [Crestor] 40 mg PO DAILY 09/18/16 Tamsulosin HCl [Flomax] 0.4 mg PO QHS 09/18/16 Insulin Lispro [Humalog] 8 - 20 unit SC TIDCM 03/23/18 Magnesium 500 mg PO DAILY 03/23/18 Pantoprazole Sodium [Protonix] 40 mg PO DAILY 03/23/18 Potassium Chloride [K-Dur] 20 meq PO DINNER 03/23/18 Potassium Chloride [K-Dur] 40 meq PO DAILY 03/23/18 Lipase/Protease/Amylase [Claudia Hooker 36,000 Units Capsule] 36,000 unit PO TIDCM 03/25/18 Metoprolol Tartrate [Lopressor (beta sajan)] 25 mg PO BID #60 tab 03/28/18 Following Prescrptions Were Given to Patient: Metoprolol Tartrate [Lopressor (beta sajan)] 25 mg PO BID #60 tab Primary Care Physician: Robert Cross MD [Primary Care Provider] - Please follow up with your Primary Care Physician in: in 2-3 weeks Please Follow Up With: Ozzie Blackman DO When: this week Disposition: Home Minutes spent on discharge:: 35 Patient Condition:: Stable Medical Necessity - Tobacco Use Smoking Status: Former smoker Tobacco Use: Non-smoker Meaningful Use Info Meaningful Use Diagnoses (Choose all that apply): None applicable Code Visit Inpatient E&M: 44979 Disch Hosp
--- NOTE | 2018-03-30 09:43 | DS.PCM_ITS ---
Discharge Date and Diagnosis Date of Admission: 03/23/18 Date of Discharge: 03/28/18 - Primary Discharge Diagnosis 1 right-sided abdominal pain-secondary to metastatic pancreatic cancer #2 supraventricular tachycardia-converted to sinus rhythm #3 metastatic pancreatic cancer #4 coronary artery disease-stable at this time #5 type 2 diabetes- #6 leukocytosis-secondary to Neulasta administration #7 anemia secondary to chronic disease (pancreatic cancer)/chemotherapy #8 hyperlipidemia #9 mild pulmonary hypertension - Secondary Discharge Diagnosis Chronic Problems Pancreas cancer (Chronic) Hypertension (Chronic) Hospital Course and Treatment Operations: None Procedures: 2-D Echocardiogram Summary of Care Provided: The patient is a 58 year old M seen in the emergency room at [facility] with chief complaint of right-sided abdominal pain. Workup in the emergency room included a CAT scan of the abdomen and pelvis and the patient was seen by general surgery. Patient was not felt to have a surgical abdomen and initially his abdominal pain was felt to be secondary to constipation, patient was admitted to [facility], given IV fluids, and IV pain medications and seen in consultation by oncology. Oncology was not sure that the patient had the abdominal pain from constipation and ileus or if it was from his metastatic pancreatic cancer. Patient's abdominal pain lessened during his hospitalization , he had to be placed in ICU due to an episode of supraventricular tachycardia and was seen by cardiology and placed on amiodarone. Patient converted to sinus rhythm. On 03/28/18, patient was seen and examined and felt to be in stable condition for discharge home Discharge Activity: Return to Normal Activity Weight Bearing Status: Full weight bearing Home Medications: Medications to take at Discharge Clopidogrel Bisulfate [Plavix] 75 mg PO DAILY 09/18/16 Hydrocodone Bitart/Apap 5-325 [[place] 5/325] 1 - 2 tablet PO Q6H PRN PRN #20 tablet 09/18/16 Insulin Glargine [Lantus SoloStar Pen] 25 units SC QHS 09/18/16 Ondansetron [Zofran Odt] 4 mg PO Q8H PRN PRN #10 tablet 09/18/16 Rosuvastatin Calcium [Crestor] 40 mg PO DAILY 09/18/16 Tamsulosin HCl [Flomax] 0.4 mg PO QHS 09/18/16 Insulin Lispro [Humalog] 8 - 20 unit SC TIDCM 03/23/18 Magnesium 500 mg PO DAILY 03/23/18 Pantoprazole Sodium [Protonix] 40 mg PO DAILY 03/23/18 Potassium Chloride [K-Dur] 20 meq PO DINNER 03/23/18 Potassium Chloride [K-Dur] 40 meq PO DAILY 03/23/18 Lipase/Protease/Amylase [Claudia Hooker 36,000 Units Capsule] 36,000 unit PO TIDCM Metoprolol Tartrate [Lopressor (beta sajan)] 25 mg PO BID #60 tab 03/28/18 Following Prescrptions Were Given to Patient: Metoprolol Tartrate [Lopressor (beta sajan)] 25 mg PO BID #60 tab Primary Care Physician: Robert Cross MD [Primary Care Provider] - Please follow up with your Primary Care Physician in: in 2-3 weeks Please Follow Up With: Ozzie Blackman DO When: this week Disposition: Home Minutes spent on discharge:: 35 Patient Condition:: Stable Medical Necessity - Tobacco Use Smoking Status: Former smoker Tobacco Use: Non-smoker Meaningful Use Info Meaningful Use Diagnoses (Choose all that apply): None applicable Code Visit Inpatient E&M: 94266 Disch Hosp
--- NOTE | 2018-03-30 16:41 | CASEMGMT ---
RN ANALIA NOTE: Attempted discharge phone call. No answer and no voicemail available to leave a message. Pao REED RN CM
== END 2018-03-28 15:00 | disposition home or self-care (01) | DRG 436 ==
LOC: ED 13:31 → MS3 19:33 → ICU 03-28 06:49
PROVIDERS: Internal Medicine; Internal Medicine Cardiovascular Disease; Admitting Provider Internal Medicine; Emergency Provider Emergency Medicine; Family Provider Family Medicine; PCP Family Medicine; Visit Provider Student in an Organized Health Care Education/Training Program
DX: C25.9 Malignant neoplasm of pancreas, unspecified (principal); C77.9 Secondary and unspecified malignant neoplasm of lymph node, unspecified; I47.1 Supraventricular tachycardia; I31.3 Pericardial effusion (noninflammatory); J98.11 Atelectasis; J90 Pleural effusion, not elsewhere classified; R18.8 Other ascites; E87.1 Hypo-osmolality and hyponatremia; K59.01 Slow transit constipation; I25.10 Atherosclerotic heart disease of native coronary artery without angina pectoris; E11.9 Type 2 diabetes mellitus without complications; I10 Essential (primary) hypertension; Z87.891 Personal history of nicotine dependence; Z95.5 Presence of coronary angioplasty implant and graft; Z79.4 Long term (current) use of insulin; I25.2 Old myocardial infarction; Z85.828 Personal history of other malignant neoplasm of skin; Z79.02 Long term (current) use of antithrombotics/antiplatelets; E78.5 Hyperlipidemia, unspecified; N40.0 Benign prostatic hyperplasia without lower urinary tract symptoms; D69.6 Thrombocytopenia, unspecified; I27.20 Pulmonary hypertension, unspecified; D63.0 Anemia in neoplastic disease
CPT/HCPCS: 36591; 74176; 74177; 80048; 80053; 81001; 82962; 83605; 83690; 83735; 84484; 85025; 87641; 93005; 93306; 99281; J7030; J7040; Q9967; A4216; J0153; J2405

== ENCOUNTER → 2018-04-11 14:26 | Outpatient (CLI) | payer BC, SELFPAY ==
[2018-04-11 15:19] LABS: Prothrombin Time (Protime)PT. 22.5 SECONDS (11.7-14.9)
== END ==
PROVIDERS: Family Provider Family Medicine; PCP Family Medicine; Visit Provider Internal Medicine Hematology & Oncology
DX: R18.8 Other ascites (principal); C25.9 Malignant neoplasm of pancreas, unspecified; C78.6 Secondary malignant neoplasm of retroperitoneum and peritoneum
CPT/HCPCS: 36415; 85610; A4216

== ENCOUNTER → 2018-04-17 09:40 | Outpatient (CLI) | payer BC, SELFPAY ==
[2018-04-17 09:59] LABS: International Normalized Ratio 1.5; Prothrombin Time (Protime)PT. 17.9 SECONDS (11.7-14.9)
[2018-04-17 10:03] LABS: ALB/GLOB Ratio 0.4 RATIO (0.9-2.4); AST(SGOT) 100 U/L (15-37); Alanine Aminotransfer ALT/SGPT 95 U/L (16-61); Albumin, Serum 1.5 g/dL (3.2-5.0); Alkaline Phosphatase 352 U/L (45-117); Anion Gap 6 (5-15); BUN 6 mg/dL (7-18); BUN/Creat Ratio 12.5 RATIO (10-20); Calcium,Total 7.3 mg/dL (8.5-10.1); Chloride 100 mmol/L (98-107); Creatinine, Serum 0.48 mg/dL (0.70-1.30); EST Glomerular Filtration Rate 189 mL/min (>60); Est Glom Filt Rate - Afr Amer 229 mL/min (>60); Globulin 4.1 g/dL (2.2-4.2); Glucose 167 mg/dL (74-106); Potassium 4.2 mmol/L (3.5-5.1); Protein, Total 5.6 g/dL (6.4-8.2); Sodium Level 133 mmol/L (136-145)
== END ==
PROVIDERS: Family Provider Family Medicine; PCP Family Medicine; Visit Provider Internal Medicine Hematology & Oncology
DX: C25.9 Malignant neoplasm of pancreas, unspecified (principal); C78.6 Secondary malignant neoplasm of retroperitoneum and peritoneum
CPT/HCPCS: 80053; 85610